=== PATIENT | male | born 1960 | race Caucasian/White ===

== ENCOUNTER 2016-06-27 07:08 | Day surgery (SDC) | payer MEDICARE, MEDICAID ==
[~2016-06-27] VITALS: Ht 170.2 cm; Wt 117.5 kg
[~2016-06-27 07:08] MED LIST: ASCO500C6 PO; ASPI325T32 PO; BISA10EN RC; FLUT16SP NS; HYDR-4003 PO; Lactated Ringer's 1,000 ML IV ONE; MULT-1018 PO; PHEN100C11 PO; Vancomycin Inj 1,750 MG in Dextrose 5% 500 ML IV ONE; baclofen pump
[2016-06-27] MEDS ORDERED: Propofol 10,000 mCg/mL 20 mL Inj ONE (07:09)
[2016-06-27] MEDS ORDERED: Lidocaine PF 1% 30 mL Inj ONE (07:09)
[2016-06-27] MEDS ORDERED: fentaNYL-PF 50 mCg/mL 2 mL Inj ONE (07:09)
[2016-06-27] MEDS ORDERED: Lactated Ringer's 1,000 ML IV ONE (07:44)
[2016-06-27 07:45] VITALS: BP 123/70; PULSE 50; RESP 20; O2SAT 93
[2016-06-27] MEDS ORDERED: Vancomycin 1,000 mg/200 mL D5W IV ONE (08:07)
[2016-06-27] MEDS ORDERED: Lactated Ringer's 500 ML IV PRN (08:31)
[2016-06-27] MEDS ORDERED: Lactated Ringer's 1,000 ML IV SCH (08:31)
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
[2016-06-27] MEDS ORDERED: fentaNYL-PF 50 mCg/mL 2 mL Inj IVPUSH PRN (08:35)
[2016-06-27] MEDS ORDERED: Ondansetron 2 mg/mL 2 mL Inj IVPUSH PRN (08:35)
[2016-06-27] MEDS ORDERED: Atropine 0.4 mg/mL Inj IVPUSH PRN (08:35)
[2016-06-27] MEDS ORDERED: MetoCLOpramide 5 mg/mL 2 mL Inj IVPUSH PRN (08:35)
[2016-06-27] MEDS ORDERED: Phenylephrine 10,000 mCg/mL Inj IVPUSH PRN (08:35)
[2016-06-27] MEDS ORDERED: HYDROmorphone 1 mg/mL Inj IVPUSH PRN (08:35)
[2016-06-27] MEDS ORDERED: EPHEDrine Sulfate 50 mg/mL Inj IVPUSH PRN (08:35)
[2016-06-27] MEDS ORDERED: hydrALAZINE 20 mg/mL Inj IVPUSH PRN (08:35)
[2016-06-27] MEDS ORDERED: Labetalol 5 mg/mL 4 mL Inj IV PRN (08:35)
[2016-06-27] MEDS ORDERED: Dexamethasone 4 mg/mL Inj IVPUSH PRN (08:35)
[2016-06-27 09:50] VITALS: BP 94/63; PULSE 52; RESP 20; O2SAT 96
--- NOTE | 2016-06-27 09:52 | PCM.ANEP1 ---
Post Anesthesia Phase 1 PACU Phase 1 Assessment Date of Service: Jun 27, 2016 Vital Signs T 36.0, HR 53, RR 12, O2 95% RA, BP 94/63 Vital Signs Date Time Temp Pulse Resp B/P Pulse Ox O2 Delivery O2 Flow Rate FiO2 06/27/16 07:45 35.9 50 20 123/70 93 Room Air Lungs: Clear to Auscultation, Diminished Demond Vasquez MD Jun 27, 2016 09:52
--- NOTE | 2016-06-27 10:21 | PCM.ANEP2 ---
Post Anesthesia Evaluation ASA/CMS Post Anesthesia Date of Service: Jun 27, 2016 VS in Patient's Normal Range?: Yes Resp Stable; Airway Patent?: Yes CV Function & Hydration Stable: Yes Mental Status Recovered?: Yes Pain control Satisfactory?: Yes N/V Control Satisfactory?: Yes Demond Vasquez MD Jun 27, 2016 10:21
[2016-06-27 10:30] VITALS: BP 115/62; PULSE 48; RESP 18; O2SAT 96
--- NOTE | 2016-06-27 21:32 | OP ---
[address] [address] OPERATIVE REPORT PATIENT: LOBITO BILLINGSLEY : 1960 MR#: [id number] ADMIT: 06/27/2016 JOB ID: [id number] DATE OF SURGERY: 06/27/2016 SURGEON: Alex Kern MD ANESTHESIA: Monitored anesthesia care. PREOPERATIVE DIAGNOSIS(ES): 1. Quadriplegia. 2. Bilateral stage 4 ischial decubitus ulcers. POSTOPERATIVE DIAGNOSIS(ES): 1. Quadriplegia. 2. Bilateral stage 4 ischial decubitus ulcers. PROCEDURES: Debridement of bilateral decubitus ulcers. ASSISTANTS: LYNNE Pickering. COMPLICATIONS: None. ESTIMATED BLOOD LOSS: 10 cc. SPECIMENS: None. FINDINGS: The right ulcer generally appears pretty healthy. There was one very small focus of necrotic tissue which was cleaned with curettage. The left ulcer had a lot of necrotic tissue which was debrided with a combination of sharp debridement and curettage. INDICATIONS/SIGNIFICANT HISTORY: The patient is a 56-year-old man with a history of quadriplegia whose had a right ischial wound for over a year. He recently developed a left ischial wound. He has been struggling with wound care. It has been foul-smelling. [facility] and elected to take him to the operating room for exam under anesthesia and debridement. OPERATIVE TECHNIQUE: The patient was taken to the operating placed and placed in supine position. He was then placed in lithotomy. The patient refused general anesthesia and therefore received monitored anesthesia care. Preoperative antibiotics were given. The perineum was prepped and draped in standard surgical fashion and a procedural pause performed. I began by examining the right wound. The wound bed almost completely appeared healthy with no necrotic tissue. There was one pinpoint focus of necrotic tissue which was scraped off using a curette. That wound was then packed after pulse irrigation. I then turned my attention to the left ischial decubitus ulcer. There was a large amount of necrotic tissue especially in the left lateral aspect. I incised around this with a scalpel and then used electrocautery to remove necrotic tissue down to healthy bleeding tissue. Before the procedure it measured approximately 1.5 in length x 2.7 in width with a depth of 4.5 cm. After the procedure, it measured 6 cm in length x 8 cm in width with a depth of 5 cm. I completely debrided the entire wound down to healthy bleeding tissue. Then, the pulse irrigation was just under 3 L of saline. Wound was then packed. It was then reinspected and hemostasis achieved. Both wounds were then packed with plain gauze. Case was then concluded.
== END 2016-06-27 23:59 | disposition home or self-care (01) ==
LOC: SAS 07:08
PROVIDERS: ATTEND General Practice
DX: L89.224 Pressure ulcer of left hip, stage 4 (principal); L89.214 Pressure ulcer of right hip, stage 4; G82.50 Quadriplegia, unspecified; S14.109S Unspecified injury at unspecified level of cervical spinal cord, sequela; Z86.14 Personal history of Methicillin resistant Staphylococcus aureus infection
CPT/HCPCS: 11042; J3370; J7060; J7120

== ENCOUNTER 2016-07-20 10:59 | Day surgery (SDC) | payer MEDICARE, MEDICAID ==
[~2016-07-20] VITALS: Ht 170.2 cm; Wt 117.5 kg
[2016-07-20] VITALS (9 sets, daily range): BP systolic 88–140; BP diastolic 42–71; PULSE 47–53; RESP 12–18; O2SAT 95–97
[~2016-07-20 10:59] MED LIST changes: -BISA10EN RC; +Clindamycin 900 mg/50 mL D5W IV ONE; -FLUT16SP NS; -HYDR-4003 PO; -Lactated Ringer's 1,000 ML IV ONE; +Lactated Ringer's 1,000 ML IV SCH; -Vancomycin Inj 1,750 MG in Dextrose 5% 500 ML IV ONE
[2016-07-20] MEDS ORDERED: fentaNYL-PF 50 mCg/mL 2 mL Inj ONE (11:00)
[2016-07-20] MEDS ORDERED: Propofol 10,000 mCg/mL 20 mL Inj ONE (11:00)
--- NOTE | 2016-07-20 11:40 | PCM.HPANE ---
Patient Data Surgeon Admitting Provider: Attending Provider:Rohith Woodward MD Primary Care Physician:Saul Kendrick MD Other Provider:Radha Stephensoningham Anesthesia Reason for Visit Bilateral Ischial Wounds Ht/WT & BMI Height (Feet): 5 Height (Inches): 7 Weight (Kilograms): 117.48 Body Mass Index 40.00 Allergies Coded Allergies: No Known Drug Allergies (Verified Allergy, Unknown, 08/08/15) ONLY ALLERGIC TO DETERGENT PERFUME; NO DRUG ALLERGIES PER PATEINT Uncoded Allergies: PERFUME IN DETERGENT (Adverse Reaction, Severe, RED RASH, 07/27/12) Past Anesthesia History Anesthesia History: Denies:: Abnormal Airway, Anesthesia Reactions, Difficult Intubation, Malignant Hyperthermia Diabetes History Hx Diabetes?: No MRSA MRSA: Yes (IN URINE IN THE PAST) Medications Blood Thinner: Aspirin Reported Medications Multivitamin (Multi Vitamin Daily)1 Each Tablet1 Each PO DAILY 30 Days Ref 0 06/22/16 Aspirin 325 Mg Gwkecx344 Mg PO DAILY #1 BOTTLE 06/22/16 Phenytoin Sodium Extended 100 Mg Bunsvew110 Mg PO HS 06/22/16 Phenytoin Sodium Extended 100 Mg Rjigluc652 Mg PO noon 06/22/16 Ascorbic Acid (Vitamin C)500 Mg Capsule.er500 Mg PO DAILY 06/22/16 [baclofen pump] No Conflict CheckUnknown Dose DAILY 06/22/16 History History of ENT Problems?: Yes HEENT History: Positive for:: Dysphagia (occasional) Denies:: Abnormal Airway Cataracts Difficult Intubation Sinus Problem Hx of Heart Problems?: Yes Cardiovascular History: Positive for:: Edema Denies:: Cardiac Surgery Chest Pain Congestive Heart Failure Heart Murmur Hypertension Irregular Heartbeat Pacemaker Thrombophlebitis Hx of Respiratory Problem?: Yes Respiratory History: Positive for:: Dyspnea Pneumonia (hx of recurrent) Denies:: Asthma COPD Chest Surgery Emphysema Hemoptysis Tuberculosis Use of C-PAP Machine (positive sleep study) Hx Neurologic Problems?: Yes Neurological History: Positive for:: Headaches Seizures (last seizure was over 3 years ago) Denies:: Alzheimer's Disease CVA Dementia Dizziness Parkinson's Disease Hx of GI Problems?: Yes Gastrointestinal History: Positive for:: Heartburn Denies:: Diverticulitis Gastroesphageal Reflux Gastrointestinal Bleeding Hepatitis Hiatal Hernia Rectal Bleeding Hx of Problems?: Yes Genitourinary History: Positive for:: Kidney Stones (hx of bladder stones) Urinary Tract Infection (recurrent) Male Hx: Positive for:: Testicular Surgery (AT DETACHED TESTICLE) Denies:: Scrotal Mass (scrotal edema) Skin History: Positive for:: History Skin Disorders? (recurrent ulcerations) Pressure Ulcers (left ischial ulcers current admission problem) Hx Musculoskeletal Problems?: Yes Musculoskeletal History: Positive for:: Back Injury (cervical fusion - quadriplegic) Musculoskeletal Trauma Denies:: Joint Replacement Hx of Psycho/Social Problems?: No Psycho Social History: Denies:: Anxiety Bipolar Disorder Hx Depression Suicide Attempt Hx Surgeries?: Yes (flap surgery for decubs, tonsils, baclofen pump in abd, CERV. FUSION) Hx Any Other Health Problems?: Yes Other History: Positive for:: Hospitalization Denies:: Cancer Endocrine Disease Thyroid Disease History Blood Transfusions: Denies:: Blood Transfuse Reaction Blood Transfusions Hx Diabetes: No Hx Alcohol Use: NoHx Substance Use: No Smoking Status: Never Smoker Have You Smoked inLast 12 mo: No Stop/Bang P-Blood Pressure: treated: No B- Body Mass Index > 35 kg/m2: Yes A- Age over 50: Yes N- Neck Large Circumference: No G- Gender Male: Yes Risk Assessment Category Category 1A: Patient has history of documented sleep apnea, and HAS NOT received any narcotic, sedative or anesthesia administration during this stay. Category 1B: Patient has history of documented sleep apnea, and HAS received any narcotic , sedative or anesthesia administration during this stay Category 2: Patient has SUSPECTED Obstructive Sleep Apnea, and HAS received any narcotic , sedative or anesthesia administration during this stay. Category 3: Patient has SUSPECTED Obstructive Sleep Apnea and HAS NOT received narcotic, sedative or anesthesia administration during this stay. Category 4: Outpatient in Procedural Areas with known sleep apnea or who screen positive for High Risk via the STOP/BANG questionnaire. Plan Impression Patient chart reviewed, patient interviewed and anesthestic plan with risks, benefits, and alternatives discussed, and informed consent obtained. NPO Status: 06/26@1730 Ervin Saxena DO Jul 20, 2016 11:40
[2016-07-20] MEDS ORDERED: Lactated Ringer's 1,000 ML IV ONE (13:04)
[2016-07-20] MEDS ORDERED: SODIUM HYPOCHLORITE 0.25% TOPICAL ONE (13:40)
--- NOTE | 2016-07-20 15:06 | PCM.ANEP1 ---
Post Anesthesia Phase 1 PACU Phase 1 Assessment Vital Signs Vital Signs Date Time Temp Pulse Resp B/P Pulse Ox O2 Delivery O2 Flow Rate FiO2 07/20/16 14:19 47 12 133/70 96 Room Air 07/20/16 14:15 48 12 108/57 95 Room Air 07/20/16 14:10 36.1 53 14 104/59 95 Room Air 07/20/16 14:05 47 17 106/57 97 Room Air 07/20/16 14:00 48 17 104/50 97 Room Air 07/20/16 13:55 49 16 90/44 97 Simple Mask 8 07/20/16 13:53 36.9 52 18 88/42 97 Simple Mask 8 07/20/16 11:35 36.6 50 18 140/71 97 Room Air Anesthetic Administered: MAC Level of Alertness: Awake, talking WATERMAN's with Equal Strength: Yes Pain: No Nausea or Vomiting: No Oxygen Delivery: Simple Mask Dermatome Level: Full Sensation (At baseline c/w ~upper thoracic quadraplegia) Ervin Saxena DO Jul 20, 2016 15:06
--- NOTE | 2016-07-20 15:16 | PCM.ANEP2 ---
Post Anesthesia Evaluation ASA/CMS Post Anesthesia Date of Service: Jul 20, 2016 VS in Patient's Normal Range?: Yes Resp Stable; Airway Patent?: Yes CV Function & Hydration Stable: Yes Mental Status Recovered?: Yes Pain control Satisfactory?: Yes N/V Control Satisfactory?: Yes Ervin Saxena DO Jul 20, 2016 15:16
--- NOTE | 2016-07-21 23:48 | OP ---
[address] [address] OPERATIVE REPORT PATIENT: LOBITO BILLINGSLEY : 1960 MR#: [id number] ADMIT: 07/20/2016 JOB ID: [id number] DATE OF SURGERY: 07/20/2016 PREOPERATIVE DIAGNOSIS(ES): Left ischial pressure ulcer, unstageable. POSTOPERATIVE DIAGNOSIS(ES): Left ischial pressure ulcer, stage 4. PROCEDURE: 1. Excision and sharp debridement of left ischial pressure ulcer. Predebridement measurement 11 cm x 9 cm. Post debridement measurement 11 cm x 11 cm. 2. Debridement includes skin, soft tissue and muscle. SURGEON: Rohith Woodward MD. MANAGER PULMONARY: None. ANESTHESIA: MAC. COMPLICATIONS: None apparent. ESTIMATED BLOOD LOSS: 10 cc. SPECIMEN: None. INDICATIONS FOR PROCEDURE: This is a 56-year-old patient with paraplegia. The patient has a long history of right-sided ischial pressure ulcer. Patient had wheelchair cushion malfunction. Patient subsequently developed a left ischial wound. This was debrided on June 27, 2016. I saw the patient on July 13, 2016, and it was noted that the patient had developed more necrotic tissue in this wound. At this point, a debridement of the necrotic tissue from the wound is indicated. PROCEDURE AND FINDINGS: The patient was identified in preoperative area. Surgical site was marked. The patient was then taken back to the operating room and placed supine on the operating table. Appropriate time-outs were taken. MAC was induced smoothly. The patient was then placed into a lithotomy position. The patient was then prepped and draped in the usual sterile manner. It was noted that patient has a pressure ulcer in the right ischium. It was unstageable, though there is some necrotic tissue at the base. There is also necrotic tissue at the periphery of the wound including the skin which extended from approximately the 1 o'clock position of the wound to the 11 o'clock position of the wound. I started at the 1 o'clock position and incised at the junction of the necrotic tissue with normal-appearing skin with electrocautery. This was deepened down toward the wound base. I beveled the incision away from the necrotic tissue until there was no more necrotic tissue at the edge of the wound. I then continued the dissection toward the medial aspect of the wound, excising the deep necrotic tissue. This was done, 1st from the approximately 1 o'clock position to the 4 o'clock position. It was noted that the cavity undermines the wound edge by 2 cm. I excised approximately 1 cm of the skin from this area as this skin is undermined and likely not to survive and also allow for better packing. I then turned my attention to the next section of the wound which was approximately to the 4 o'clock and 9 o'clock position. Again, a similar excision was carried out to remove the necrotic tissue. I then continued onto approximately the lung 11 o'clock position to excise all necrotic material from the periphery. Once this had been done, it was noted that patient continues to have some necrotic material at the medial aspect of the wound. In a layer by layer manner, I excised the necrotic material with electrocautery until I encountered the ischial periosteum. Once this has been done, the wound appeared to be clean. Wound base was bleeding in several spots. There was no obvious apparent necrotic tissue. The wound was then packed with Dakin-moistened Kerlix. The patient tolerated the procedure well. Needle count, sponge count, instrument counts were correct at the end of procedure. Again, preexcision, the wound measured approximately 9 cm x 11 cm and post excision the wound measured 11 cm x 9 cm. Before debridement, the wound had soft tissue at the base and afterwards the wound extends all the way down to the ischium making it a stage 4 pressure ulcer.
== END 2016-07-20 23:59 | disposition home or self-care (01) ==
LOC: SAS 10:59
PROVIDERS: ATTEND Plastic Surgery
DX: L89.224 Pressure ulcer of left hip, stage 4 (principal); G40.909 Epilepsy, unspecified, not intractable, without status epilepticus; G82.50 Quadriplegia, unspecified
CPT/HCPCS: 11043; J2250; J3010; J7120

== ENCOUNTER 2016-08-06 22:20 | Inpatient (IN) | payer MEDICARE, MEDICAID ==
[~2016-08-06] VITALS: Ht 170.2 cm; Wt 113.5 kg
[~2016-08-06 22:20] MED LIST changes: -Clindamycin 900 mg/50 mL D5W IV ONE; -Lactated Ringer's 1,000 ML IV SCH
--- NOTE | 2016-08-06 22:35 | ED.REPORT ---
HPI-Rash / Abscess Date of Service Aug 06, 2016 ED Provider: Lionel Recio MD A 56 year old male with stage IV bilateral ischial decubitus ulcers and a history of C7 quadriplegia and morbid obesity presents to the ED via EMS complaining of a fever that began earlier this afternoon. Patient also reports worsening pain in his ulcers. Patient recently had his left ulcer excised and debrided (measured 11cm x 9cm). He denies any recent antibiotic use. Patient has had several visits to Wound Care in the past month for his decubitus ulceration. Nursing Notes Stated Complaint: BUTTOCK SHORES Nursing Notes Reviewed: Yes Allergies: Coded Allergies: No Known Drug Allergies (Verified Allergy, Unknown, 08/08/15) ONLY ALLERGIC TO DETERGENT PERFUME; NO DRUG ALLERGIES PER PATEINT Uncoded Allergies: PERFUME IN DETERGENT (Adverse Reaction, Severe, RED RASH, 07/27/12) Scheduled ([baclofen pump]) Unknown Dose DAILY Ascorbic Acid (Vitamin C) 500 Mg Capsule.er 500 MG PO DAILY Aspirin (Aspirin) 325 Mg Tablet 325 MG PO DAILY Multivitamin (Multi Vitamin Daily) 1 Each Tablet 1 EACH PO DAILY Phenytoin Sodium Extended (Phenytoin Sodium Extended) 100 Mg Capsule 200 MG PO noon Phenytoin Sodium Extended (Phenytoin Sodium Extended) 100 Mg Capsule 300 MG PO HS General Time Seen by MD: 22:31 Chief Complaint Other (Fever) Hx Obtained From: Patient Arrived By: Ambulance Onset Occurred: 9 - 12 hours ago Symptom Duration: Since onset Location: : Buttock Quality: Painful Severity: Current: Mild Severity: Maximum: Mild Associated with: Reports Fever Pertinent Negative: Pt denies other symptoms Recent Healthcare: No recent hospitalization, Recent doctor visit Past Medical History Past Medical History Incomplete C7 quadriplegia Mild sinusitis Seizure disorder Morbid obesity Recurrent bladder infections stage IV bilateral ischial decubitus ulcers Past Surgical History Multiple buttock decubitus ulcer debridement Baclofen pump Debridement of right ischial pressure sore with right gluteal myocutaneous flap closure. Smoking History Never Smoker Social History Alcohol Use: Denies alcohol use Drug Use: Denies drug use Other Social History: Good social support Ambulatory Status Wheelchair Review of Systems ischial decubitus ulcer pain Constitutional: Reports: Chills, Fever Respiratory: Denies: Shortness of breath Cardiovascular: Denies: Chest pain GI: Denies: Abdominal pain, Nausea, Vomiting Complete sys rev & neg: except as marked. Neurologic: Denies: Change LOC Physical Exam Initial Vital Signs Vital Signs (First) Date Time Temp Pulse Resp B/P Pulse Ox O2 Delivery O2 Flow Rate FiO2 08/06/16 22:59 37.7 92 18 134/55 100 Room Air Initial VS: Reviewed, Vital signs abnormal Neurologic: Alert, Oriented, Nonfocal Psychiatric: Mood/affect normal, Behavior normal, Normal thought content General/Constitutional: Awake, Alert Appearance / Presentation: Positive: Obese Skin: Atraumatic Rash / Lesion Notes: SKIN/LEISON: Left buttock - Large cavity with necrotic edge (10cm x15cm) Right buttock- Small [id number] open area Head / Eyes: Atraumatic, Normocephalic, PERRL Respiratory / Chest: Atraumatic, Breath sounds NL, Breath sounds = bilat Cardiovascular: Heart rate NL, Regular rhythm, Heart sounds NL Upper Extremity / MS: Atraumatic, Vascular intact UPPER EXTREMITIES: Paraplegic Good use of bilateral upper arms Lower Extremity / Pelvis / MS: Atraumatic, Vascular intact LOWER EXTREMITIES: Paraplegic Support stocking on the left (no support stocking on right) Interpretation & Diagnostics Lab Results Interpretation Result Diagram: 08/06/16 2245 08/07/16 0129 Test 08/06/16 22:45 08/07/16 00:30 White Blood Count 18.2th/mm3 (3.8-10.1) Red Blood Count 4.39mil/mm3 (4.40-5.80) Hemoglobin 11.6g/dL (13.8-17.2) Hematocrit 35.9% (41.0-50.0) Mean Corpuscular Volume 81.8fL (81-100) Mean Corpuscular Hemoglobin 26.4pg (27.0-35.0) Mean Corpuscular Hemoglobin Concent 32.3% (32.0-37.0) Red Cell Distribution Width 15.2% (12.3-15.4) Platelet Count 328bil/L (150-400) Neutrophils (%) (Auto) 89.0% (40-74) Lymphocytes (%) (Auto) 4.2% (14-46) Monocytes (%) (Auto) 5.9% (4-12) Eosinophils (%) (Auto) 0.3% (0-5) Basophils (%) (Auto) 0.2% (0-3) Lactic Acid Level 1.3mmol/L (0.4-2.0) Magnesium Level 1.9mg/dL (1.6-2.6) Troponin T 0.010ug/L (0.0-0.011) Urine Color Dark yellow (YELLOW) Urine Appearance Cloudy (CLEAR,HAZY) Urine pH 6.0 (5.0-8.0) Urine Specific [place] 1.025 (1.003-1.035) Urine Protein 30mg/dL (NEG,TRACE) Urine Glucose (UA) Negativemg/dL (NEGATIVE) Urine Ketones Tracemg/dL (NEGATIVE) Urine Occult Blood Moderate (NEGATIVE) Urine Nitrite Positive (NEGATIVE) Urine Bilirubin Small (NEGATIVE) Urine Ictotest Positive (Negative) Urine Urobilinogen 1.0mg/dL (NORMAL) Urine Leukocyte Esterase Moderate (NEGATIVE) Urine RBC 11-50/hpf (0-2) Urine WBC Packed/hpf (0-5) Urine Epithelial Cells Few/hpf (NONE-MOD) Urine Crystals None seen (NONE SEEN) Urine Bacteria Many/hpf (NONE-FEW) Urine Hyaline Casts None/lpf (NONE) Urine Granular Casts None seen (NONE SEEN) Urine Waxy Casts None seen (NONE SEEN) Urine Red Blood Cell Casts None seen (NONE SEEN) Urine White Blood Cell Casts None seen (NONE SEEN) Urine Mucus None seen (None Seen) Urine Trichomonas None seen (NONE SEEN) Urine Yeast None (NONE SEEN) Urine Culture Reflexed Indicated Lab Results Interpretation: Elevated white blood count. Normal lactate ECG Interpretation ECG Interpretation: IMPRESSION: Sinus Rhythm Rate 60 Probable left atrial enlargement Time: 22:59 Interpreted by: ED physician Normal ECG Interpretation: No change from prior ECGs (06/02/14) Re-Eval/Medical Decision Med Decision/Clinical Course 56-year-old male who is an incomplete quad. He has bilateral ischial decubiti. There is considerable more breakdown and devitalized tissue in the left side. He has developed a fever and a white count. He will be treated and admitted for re-debridement. Re-Evaluation/Progress : Time of Eval: 00:35 Patient Status: Condition improved Re-Evaluation/Progress Note: Patient is rechecked. Ulcers are examined. He is informed of the plan to admit and consult with the surgeon. Consultation #1: Referral / Consult Name: Virginia Gonzalez MD Consulted With: Hospitalist Call Returned at: 00:38 Tank Truck Mechanic: Will see patient, Agrees with eval, Agrees with plan Consultation #2: Referral / Consult Name: Rohith Woodward MD Consulted With: Surgeon Call Returned at: 00:42 Tank Truck Mechanic: Will see patient, Agrees with eval, Agrees with plan Counseled Regarding: Diagnosis, Lab results, Need for admission Discharge & Departure Impression: Primary Impression: Stage IV pressure ulcer Disposition: ADMITTED TO HOSPITAL Discharge Condition All VS Reviewed: Yes Condition: Stable Referrals: Saul Kendrick MD (PCP) Scribe Attestation Portions of this note were transcribed by Ashley Anguiano. I, Dr. Recio personally performed the history, physical exam and medical decision-making; I reviewed and confirmed the accuracy of the information in the transcribed note. Signed by: Jackelyn Holloway, 08/07/16 0100. copies to: Saul Kendrick MD, Howard L MD Aug 06, 2016 22:35 ASHLEY ANGUIANO Aug 06, 2016 22:51
[2016-08-06] MEDS ORDERED: 0.9% Sodium Chloride 1,000 ML IV ONE (22:37)
[2016-08-06 22:59] VITALS: BP 134/55; PULSE 92; RESP 18; O2SAT 100
[2016-08-06 23:05] LABS: BASOPHILS % (AUTO) 0.2 % (0-3); Platelet Count 328 bil/L (150-400)
[2016-08-06 23:08] LABS: EOSINOPHILS % (AUTO) 0.3 % (0-5); MONOCYTES % (AUTO) 5.9 % (4-12); Mean Corpuscular Hemoglobin 26.4 pg (27.0-35.0); Mean Corpuscular Volume 81.8 fL (81-100)
[2016-08-06 23:28] LABS: TROPONIN T 0.01 ug/L (0.0-0.011)
[2016-08-06 23:39] LABS: Magnesium 1.9 mg/dL (1.6-2.6)
[2016-08-07] VITALS (8 sets, daily range): BP systolic 124–150; BP diastolic 63–78; PULSE 52–68; RESP 20–22; O2SAT 95–99
[2016-08-07] MEDS ORDERED: Vancomycin Inj 2,250 MG in 0.9% Sodium Chloride 500 ML IV ONE (00:40)
[2016-08-07] MEDS ORDERED: Ondansetron 2 mg/mL 2 mL Inj IVPUSH PRN (00:55)
[2016-08-07] MEDS ORDERED: Polyethylene Glycol (PEG) 17 Gm Powder PO PRN (00:55)
[2016-08-07] MEDS ORDERED: Alum-Mag Hydrox-Simeth 30 mL Suspension PO PRN (00:55)
[2016-08-07 00:58] LABS: APPEARANCE,URINE CLOUDY (CLEAR,HAZY); COLOR,URINE DARK YELLOW (YELLOW); OCCULT BLOOD,URINE MODERATE (NEGATIVE)
[2016-08-07 00:59] LABS: ICTOTEST,URINE POSITIVE (Negative)
[2016-08-07] MEDS: Vancomycin Dose per Pharmacist XX SCH ×2 (01:34→08:30)
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
[2016-08-07] MEDS: Piperacillin-Tazo 3.375 Gm Inj 3.375 GM in Dextrose 5% Minibag Plus 50 ML IV SCH ×3 (03:26→17:37)
--- NOTE | 2016-08-07 03:39 | PCM.CONPHA ---
Subjective Fevers chills Reason for Pharmacy Consult: Vancomycin Dosing Assessment/Plan Assessment/Plan Pharmacy Kinetic Dosing Vancomycin Indication: Bilateral ischial ulceration Vanc goal trough: 15-20 mcg Pt wt: 113.5 kg Other ABX: Zosyn SCr: 0.34 WBC: 7.6 Cultures: Blood pending Assessment/Plan: - Loading dose of vancomycin 2,250 mg given in ED. -Will schedule vancomycin to 1,750 mg Q12H (roughly 15.4mg/kg per dose) -Will schedule trough level to be drawn on 08/09/16 @0100. Pharmacy appreciates consult and will continue to monitor. Thanks, Miguel Kessler, PharmD Miguel Kessler Aug 07, 2016 03:39
[2016-08-07] MEDS: 0.9% Sodium Chloride 1,000 ML IV SCH ×3 (04:43→20:51)
--- NOTE | 2016-08-07 06:44 | NUR ---
Admit/Ischial ulcer Admitted pt from ED to [facility]. IV vanco and zosyn running. IVF NS running on 100ml/hr. Pt denies chest pain, sob, n/v or abd discomfort. Noted pt's ulcer on his Left sacrum extending around the panus around 4-5 inches of length and width. and 4-5 inches deep, also on the Right sacrum 2-3 length and diameter, Pressure ulcer protocol initiated, Clinitron bed ordered but is currently unavailable per CS. Q2 turns provided. Wound culture obtained and sent to lab. Cleaned using gauzed with saline, and applied moistened gauze and covered with hypafix dressing. Will continue to monitor. Addendum: 08/07/16 at 0656 by RAJEEV SEVILLA RN correction:anus/anal area
--- NOTE | 2016-08-07 07:22 | DRSVH ---
PROCEDURE: CT PELVIS WITH CONTRAST ([id number]) INDICATIONS: bl peritoneal ulcers TECHNIQUE: After the administration of intravenous contrast, 5 mm thick sections acquired from the iliac crests to the symphysis. 5 mm coronal and sagittal reformats were acquired. For radiation dose reduction, the following was used: automated exposure control, adjustment of mA and/or kV according to patient size. COMPARISON: [facility], CT, CT ABD PELVIS W CON, 08/08/2015, 15:17. FINDINGS: Image quality: Excellent. Peritoneum and bowel: Bowel loops demonstrate normal wall thickness and caliber. No free fluid or a ir. Genitourinary: The bladder is decompressed and a suprapubic Rosario catheter is present. Nodes and vessels: No iliac, pelvic, or inguinal adenopathy by size criteria. Iliac vessels demonst rate normal size and enhancement. Bones: The right inferior obturator ring has a sclerotic appearance. No definite cortical thinning. Severe degenerative changes are present at the bilateral hip joints. A lucency is present within the right femoral neck suggesting a cystic lesion. No acute fracture or dislocation. Miscellaneous: There large bilateral soft tissue defects inferior to the bilateral tuberosities. Ther e is marked soft tissue thickening surrounding these defects. No discrete fluid collections. Debris o r packing material is present within the right soft tissue defect. The left soft tissue defect extend s posteriorly through the gluteus subcutaneous tissue adjacent to the gluteal crease. There is also a subtle soft tissue tract leading from the large left defect to the greater trochanter of the left fe mur. IMPRESSION: 1. Large bilateral decubitus ulcerations inferior to the bilateral ischial tuberosities. Additionally , gas tracks from the left ulceration posteriorly along the gluteal crease and towards the left femor al greater trochanter. It is unclear whether this represents necrotizing fasciitis, or extension of t he decubitus ulcer. No abscess or fluid collection amenable to drainage. 2. Sclerosis of the right inferior obturator ring suspicious for chronic osteomyelitis. If further ch aracterization is warranted, contrast-enhanced MRI of the pelvis is recommended. These findings are concordant with the overnight interpretation. Dictated by: Paola Wang M.D. on 08/07/2016 at 7:10 Approved by: Paola Wang M.D. on 08/07/2016 at 7:20
--- NOTE | 2016-08-07 08:05 | DRSVH ---
PROCEDURE: X-RAY CHEST ONE VIEW, PORTABLE ([id number]) INDICATIONS: fever TECHNIQUE: One view of the chest was acquired. COMPARISON: [facility], , CHEST 1VW (PORTABLE), 06/02/2014, 16:22. FINDINGS: This is a markedly limited study due to patient body habitus. Surgical changes and devices: None. Lungs and pleura: No pleural effusions or pneumothorax. Lungs are clear. Mediastinum: Mediastinal contours appear normal. Heart size is normal. Bones and chest wall: No suspicious bony lesions. Overlying soft tissues appear unremarkable. IMPRESSION: Limited study. No acute cardiopulmonary findings. Dictated by: Paola Wang M.D. on 08/07/2016 at 8:03 Approved by: Paola Wang M.D. on 08/07/2016 at 8:04
[2016-08-07] MEDS: Famotidine Inj 20 MG in IV Premix 1 EACH IV SCH ×2 (08:18→22:41)
[2016-08-07] MEDS ORDERED: Vancomycin Dose per Pharmacist XX SCH (08:30)
--- NOTE | 2016-08-07 10:58 | NUR ---
Social Work: Initial Assessment Data & Assessment: See Initial Assessment. EMR Reviewed. Patient is a 56 year old male that admitted on 08/07/16 due to Bilateral Ischial Ulceration per H& P. Gas Pumping Station Helper met with patient at bedside to complete initial assessment, Social Work role explained and discharge planning discussed. Advanced directives were discussed and patient does not have Advance Directive/DPOA and declined the information. Patient confirmed that his PCP is Dr. Saul Kendrick. Patient's insurance is Medicare and [employer] [employer] as secondary. Patient does not have any LTC or VA benefits. Patient does not have a re-admit score. Patient reports that he is total care and uses an electric WC at baseline. Patient reports that he was previously on service with [facility] and does not have a preference in which HH he is referred to upon discharge. SW referred to [facility] and it is [facility] week. SW will refer patient to [facility] and give them access. Patient lives alone in a single level home with ramp access. 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 Patient's Peter worker is Dary Downing. SW will fax patient's clinical to [facility]. SW will continue to follow. Plan: Pt to likely discharge home with [facility] RN for wound care. SW will continue to follow. Christiano Engle LMSW, YAIMA Addendum: 08/07/16 at 1117 by CHRISTIANO ENGLE Amended: Links added.
[2016-08-07 11:35] LABS: BASOPHILS % (AUTO) 0.2 % (0-3); EOSINOPHILS % (AUTO) 1.1 % (0-5); MONOCYTES % (AUTO) 6.7 % (4-12); Mean Corpuscular Hemoglobin 26.1 pg (27.0-35.0); Mean Corpuscular Volume 82.2 fL (81-100); NEUTROPHILS % (AUTO) 85.2 % (40-74); Platelet Count 286 bil/L (150-400)
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
[2016-08-07 13:08] LABS: INR 1.06 ratio
[2016-08-07] MEDS: Vancomycin Inj 1,750 MG in 0.9% Sodium Chloride 500 ML IV SCH (14:09)
--- NOTE | 2016-08-07 14:17 | NUR ---
Social work: Brief Note Gave [facility] access to the patient's chart and called Panchito with [facility] to notify him of the referral. SW will continue to follow patient for discharge planning needs. Dana Engle, OSMAN, ACM
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
--- NOTE | 2016-08-07 17:58 | NUR ---
Wound dressing change Pt dressing changed by Dr Marrouqin with help of this RN. Left ischial ulcer dressing was saturated with purulent draining and foul odor. Dr suctioned wound bed and packed with wet kerlix. Right ischial ulcer had mild purulent drainage, was pink and appeared to have good granulation, this to was packed with wet Kerlix and left open. Wound care will f/u tomorrow.
[2016-08-08] VITALS (8 sets, daily range): BP systolic 154–191; BP diastolic 72–86; PULSE 50–59; RESP 20–22; O2SAT 93–99
[2016-08-08] MEDS: Vancomycin Inj 1,750 MG in 0.9% Sodium Chloride 500 ML IV SCH ×2 (01:05→15:06)
[2016-08-08] MEDS: Piperacillin-Tazo 3.375 Gm Inj 3.375 GM in Dextrose 5% Minibag Plus 50 ML IV SCH ×3 (02:37→18:22)
--- NOTE | 2016-08-08 05:17 | NUR ---
Wound dressing Pt's wound dressing changed, cleaned with saline and applied wet to moist kerlix pad to the ulcers. Clinitron bed running as programmed. IV ABx administered as scheduled, VSS and pt has been afebrile overnight. Hourly rounding done. Will continue to monitor.
[2016-08-08] MEDS: 0.9% Sodium Chloride 1,000 ML IV SCH ×2 (06:51→18:25)
[2016-08-08 07:41] LABS: BASOPHILS % (AUTO) 0.3 % (0-3); EOSINOPHILS % (AUTO) 3.2 % (0-5); MONOCYTES % (AUTO) 6.8 % (4-12); Mean Corpuscular Hemoglobin 26.5 pg (27.0-35.0); Mean Corpuscular Volume 82.5 fL (81-100); NEUTROPHILS % (AUTO) 82.8 % (40-74); Platelet Count 268 bil/L (150-400)
[2016-08-08] MEDS: Famotidine Inj 20 MG in IV Premix 1 EACH IV SCH ×2 (08:02→21:35)
[2016-08-08 08:39] LABS: ERYTHROCYTE SEDIMENTATION RATE 29 mm/hr (0-30)
--- NOTE | 2016-08-08 13:18 | PCM.PNMED ---
Subjective Date of Service Aug 08, 2016 Subjective Had an uneventful night. He was evaluated by gen surgery and they did not feel it was a NSTI. This morning he reports he is doing ok. Denies any CP, SOB, or fevers. He would like a stronger bowel regimen for his constipation. Exam Vital Signs Vital Sign - Last Date Time Temp Pulse Resp B/P Pulse Ox O2 Delivery O2 Flow Rate FiO2 08/08/16 05:04 36.5 52 20 154/72 99 Room Air Intake and Output 08/07/16 08/07/16 08/08/16 Cumulative From/Thru 15:00 23:00 07:00 08/07/16 00:23 - 08/08/16 06:02 Intake Total 1399 ml 881 ml 3793 ml Output Total 1300 ml 1950 ml Balance 99 ml 881 ml 1843 ml Intake Oral 600 ml 600 ml IV Total 799 ml 881 ml 3193 ml Output Urine Total 1300 ml 1950 ml # Bowel Movements 0 0 Exam Constitutional: Middle-aged male who is morbidly obese and in no acute distress Head: Normocephalic atraumatic Chest: Clear to auscultation CV: Regular rate and rhythm Abdomen: Soft nontender bowel sounds present Extremities: Mildly atrophic and smooth skinned BLE : Suprapubic catheter in place, c/d/i Skin: Warm and dry with no rashes but there is a large tunneling ulcer of the left buttock and a moderate tunneling ulcer of the right buttock. Wounds are packed with Kerlix. Psych: Mood and affect are appropriate Neuro: Alert and oriented 3, Only flexion of right arm and full ROM of left arm. IVs and Medications Medications Reviewed: Medications were reviewed in detail Lab and Diagnostics Result Diagram: 08/08/16 0730 08/07/16 1219 X-Rays, CTs and MRIs CT PELVIS w con IMPRESSION: 1. Large bilateral decubitus ulcerations inferior to the bilateral ischial tuberosities. Additionally, gas tracks from the left ulceration posteriorly along the gluteal crease and towards the left femoral greater trochanter. It is unclear whether this represents necrotizing fasciitis, or extension of the decubitus ulcer. No abscess or fluid collection amenable to drainage. 2. Sclerosis of the right inferior obturator ring suspicious for chronic osteomyelitis. If further characterization is warranted, contrast-enhanced MRI of the pelvis is recommended. These findings are concordant with the overnight interpretation. Assessment & Plan # Acute sepsis, with penetrating ischial ulcers bilaterally, present on admission - Discussed criteria for sepsis with elevated white count of 18.2, febrile, tachycardic to 92, and Soft tissue, bacteremia, and UTI as other possible sources. - Placed on IV vancomycin per pharmacy, and IV Zosyn - CT pelvis w con was suspicious of necrotizing fasciitis and Osteomyelitis. General surgery , Dr. Marroquin, reviewed case and recommends MRI to further assess Osteomyelitis, but NSTI is not a concern at the moment. - Will obtain MRI Pelvis for further eval. Augment IV antibiotics if indeed for Osteomyelitis. - Infectious Disease consultation requested. - WBC, CRP, and ESR trending down today. #Bacteremia, acute -Patient's blood culture is growing out GPC x1 set so far. -Will manage per ID recommendations. #UTI, POA UA is positive for Nitrites, packed wbc, and mod Leukocytes with 11-50 RBCs. Will await cultures, but continue with IV Zosyn for now # Hyponatremia, acute, present on admission - Proceed with IV fluid hydration - Continuing to improve with IV NS hydration. Will plan to d/c fluids with adequate oral intake. # C5-C6 quadriplegia, chronic, present on admission - Continue supportive care - Continue Home med : Phenytoin - Will require Clinitron bed with decubitus ulcers - Patient has chronic constipation and would like an aggressive bowel regimen. #Ischial Decubitus Ulcers, POA Dressing per inpatient wound care. General surgery will also follow along. #BMI 39.2 # CODE STATUS - Full code Dispo: Likely 2-3 days for IV antibiotics and stabilization. Pain Evaluation: Adequate Pain Control VTE Prophylaxis: SCDs (we will hold on subcutaneous anticoagulants given possibility of surgical debridement in the a.m.) Resuscitation Status: CPR: Attempt Resuscitation Attending Statement The patient was seen and examined together with Resident/House-staff on 08/08/16 and I agree with the history, exam and plan as outlined in the note above. Jonatan Billingsley DO Aug 08, 2016 07:48 Otto Oseguera Aug 09, 2016 17:58
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
--- NOTE | 2016-08-08 14:49 | NUR ---
Wound Care Wound evaluation orders received, patient seen at bedside. 56 yo quadriplegic with stage 4 pressure injuries at both buttock/ischium right and left (POA). Left ulceration is 13 cm L x 9 cm W x 6.5 cm in depth, there is black necrotic tissue at 6 o'clock and 12 o'clock and at the base of the wound bone (ischial tuberosity) is palpable, there is foul tannish colored pus pooling in the base of the wound which is wall suctioned out today (25 cc's) and there is hadley necrotic subcutaneous tissue at the base of the wound. Digital examination of the wound reveals that one can get a finger up behind the ischial bone but at this time left ulcer does not communicate with the right. Right ulceration is 5 cm L x 3.5 cm W x 6 cm D, Wound bed is pale pink and granular, bone is palpable in the base of the ulcer. Ulcer is draining serous fluid on a moderate basis. Digital examination of the wound reveals that one can get a finger up behind the ischial bone but at this time right ulcer does not communicate with the left. Both wounds are packed with dry gauze and this is being changed daily, patient is on a clinitron bed. Well this patient is clinically with osteomylitis since bone is palpable in both ulcers, left ulcer is heavy with necrotic tissue which will need debridement surgically at some point however this patients wounds are extensive and healing may not be a reasonable goal at this time. Patient has been managed as an outpatient with care givers but he is completely dependent on caregivers for all ADL's and mobility. Patient is not appropriate for discharge to his own home at this point but rather SNF placement is recommended.
[2016-08-08] MEDS: Vancomycin Dose per Pharmacist XX SCH (15:08)
--- NOTE | 2016-08-08 15:58 | NUR ---
Meds Pt refused magnesium citrate, doesn't know why it was ordered, stated "I do not want to shit all over the place." Will continue with bowel meds.
[2016-08-08] MEDS: Polyethylene Glycol (PEG) 17 Gm Powder PO SCH (20:30)
[2016-08-08] MEDS: Phenytoin 100 mg ER Capsule PO SCH (21:35)
--- NOTE | 2016-08-08 22:21 | CONS ---
[address] [address] CONSULTATION REPORT PATIENT: LOBITO BILLINGSLEY : 1960 MR#: [id number] ADMIT: 08/07/2016 JOB ID: [id number] DATE OF SERVICE: 08/08/[address] Newell. REASON FOR CONSULTATION: Deep decubitus ulcer with sepsis. HISTORY OF PRESENT ILLNESS: The patient is an unfortunate 56-year-old gentleman well known to me. He has been a quadriplegic for about a quarter century now and has suffered numerous soft tissue and urinary tract infections which have led to multiple hospitalizations over many years. The patient was living at home with his part-time caregiver and in his usual state of health until four or five days ago when he developed fevers, chills and just feeling diffusely bad. He tried to weather the storm at home for two or three days but continued to have fevers, chills and malaise without real focal symptoms, but of course, remember the patient is a quadriplegic with no sensation through most of his body. In any event, he got worse and eventually presented to the emergency department, was evaluated and was admitted back in the time buyer hours of August 07, yesterday. The patient was cultured and started on appropriate antibiotics, and is already starting to feel a bit better, and that his fevers, chills and malaise seem to be ameliorated. He does not report significant cough or shortness of breath as part of this illness. He is aware that he has decubitus ulcers and he understands that they are worsening, but he actually does not have any sensation or awareness of this process. He has had no nausea, vomiting or diarrhea, and he has been able to eat throughout this. PAST MEDICAL HISTORY: 1. C7 quadriplegia x25 years. 2. Recurrent UTIs. 3. Recurrent and ongoing decubitus ulcers. 4. History of coccygeal osteomyelitis. 5. History recurrent pneumonia. 6. History of underlying seizure disorder. SOCIAL HISTORY: The patient lives with a caregiver and a dog. He does not smoke and rarely drinks alcohol. FAMILY HISTORY: Is notable for coronary artery disease, but there is no family history in first-degree relatives of tuberculosis. REVIEW OF SYSTEMS: Was done. The patient has no significant headache or visual change at this point. No sores in the mouth, sore throat or trouble swallowing. No cough or shortness of breath beyond what is normal for his quadriplegic state. He does not have significant sensation below C7 so there is no abdominal pain. No back pain. No decubitus pain or any kind of pain. No nausea, vomiting, diarrhea that he has noted. He obviously has no neurologic function below C7. The remainder of the review of systems is negative. PHYSICAL EXAMINATION: Reveals an afebrile gentleman. He has been afebrile since admission, though he was 37.7 when he first came in so borderline. Pulse is currently 54, respiratory rate 20, blood pressure 159/73, saturating well on room air. He is awake, alert, pleasant. His mood seems somewhat depressed, but otherwise relatively normal. Head without trauma. Eyes without scleral icterus or conjunctivitis. Oral cavity: No thrush, hairy leukoplakia. His neck has been fused. He is lying supine on an air type mattress, which makes the exam fairly difficult. Lungs: Relatively clear anteriorly. Cardiac tones without murmur. Abdomen is soft and without focal tenderness. He has a suprapubic catheter. His extremities are of course wasted and with no muscle tone. There is a waxy appearance to his skin, but it is not inflamed or erythematous. He has an IV in the right antecubital fossa. No evidence for joint inflammation is found and as I mentioned no skin rash noted. We were not able to roll the patient over in his air bed, though I did speak in detail to Blake of Wound Care, who saw the patient earlier today. Blake notes that on the left ischial area there is a 13 x 9 x 6.5 cm deep wound with black necrotic tissue at the top and bottom of the wound. The ischial tuberosity is palpable and there is a foul, tannish pus pooling in the wound, which was suctioned and sent for culture. The digital exam of the wound shows that one can palpate the ischial bone through the wound. The right ulceration is smaller, 5 x 3.5 x 6 cm deep, that is granulating fairly well and draining some serous fluid. Blake of Wound Management concluded his report by saying clinically there is likely to be osteo in both areas. LABORATORY STUDIES: Include white count 18,000 on admission, now down to 11. Diff showed 90% segs, now 82. Sed rate is 48. Creatinine less than 0.3. LFTs are normal. Albumin 2.4. Procalcitonin 0.11. Urinalysis with packed white blood cells, which is often the case in this patient looking back at prior admissions. Micro studies include one of four blood cultures growing staph to be identified. Urine growing some organism, which is being re-incubated, in the wound which is growing gram-negative ekaterina but multiple different organisms were seen on the Gram stain. A pelvic CT has already been done, which shows a large bilateral decubitus over the ischial tuberosity. Gas tracts from left ulceration along the gluteal crease and toward the femoral trochanter. There is also sclerosis of the right inferior obturator ring suspicious for osteo. MRI cannot be performed as the patient cannot get his arms up over his head. Chest x-ray is negative. IMPRESSION: This patient likely has osteomyelitis of one or both ischial tuberosities based on the deep ulcerations and exposed bone that were found. Given the large and chronic nature of his wounds, it is almost certain at some point he will go on to develop chronic osteomyelitis. Optimal management at this point probably involves a prolonged course of antibiotics, as well as potentially attempts to debride the left-sided more extensive wounds, and perhaps even a flap going forward to allow some attempt at closure of these defects, lest the patient just have continual infections. The patient tells me that his home air mattress is worn out and is damaged. It is perhaps reasonable to see if he could receive a better quality Clinitron type mattress at home to reduce the risk of these events or whether he should simply end up moving into a halfway facility where he could receive more frequent turning than he now obtains from his caregiver. RECOMMENDATIONS: 1. The patient is now on vanc and Zosyn. Will continue these antibiotics pending cultures. 2. Will obtain a MRSA swab of the nose. 3. Will continue to follow his labs, including especially the CRP going forward. 4. I will plan to discuss this case again with Surgery, as well as with Wound Management. 5. It may be that the patient will need a PICC line for six weeks of antibiotics. We can make that decision as we find out more about the organisms and go forward. JADYN
[2016-08-09] VITALS (8 sets, daily range): BP systolic 119–164; BP diastolic 65–90; PULSE 55–60; RESP 17–20; O2SAT 96–99
[2016-08-09] MEDS ORDERED: Vancomycin Serum Trough XX ONE (01:00)
[2016-08-09] MEDS: Vancomycin Inj 1,750 MG in 0.9% Sodium Chloride 500 ML IV SCH (01:31)
--- NOTE | 2016-08-09 02:11 | PCM.PHAPRO ---
Progress Date of Service: Aug 09, 2016 Vancomycin dosing by pharmacy for 56 y/o man O: * The patient is on vancomycin 1750 mg every 12 hours * Trough level of 13.6 mcg/mL prior to the fifth dose * SCr < 0.3 mg/dL on 08/08 * Urine output 3150 mL on 08/08 * Cultures pending A: * The trough level is not at target, but vancomycin concentrations may not be at steady-state yet * SCr is staying low, UOP looks good P: * Continue the current vancomycin dose * Drawing another trough level after 3 more doses to see if it is at target * Target trough range of 15 - 20 mcg/mL Thank you. Pharmacy will continue to follow this patient. Radha Spicer, PharmD Radha Spicer Aug 09, 2016 02:11
[2016-08-09] MEDS: 0.9% Sodium Chloride 1,000 ML IV SCH ×3 (02:51→23:22)
[2016-08-09] MEDS: Piperacillin-Tazo 3.375 Gm Inj 3.375 GM in Dextrose 5% Minibag Plus 50 ML IV SCH ×3 (03:08→17:57)
--- NOTE | 2016-08-09 05:27 | NUR ---
NPO after mn/Stomach pain pt has been npo since midnight in preparation for surgery. Pt denies chest pain, sob, but has been having abdominal pain. MD was notified and aware. Ordered to give Morphine 2mg administered. Pt states that the stomach pain has been relief. Will continue to monitor.
[2016-08-09 06:07] LABS: BASOPHILS % (AUTO) 0.4 % (0-3); EOSINOPHILS % (AUTO) 3.4 % (0-5); MONOCYTES % (AUTO) 7.6 % (4-12); Mean Corpuscular Hemoglobin 26.3 pg (27.0-35.0); Mean Corpuscular Volume 83.7 fL (81-100); Platelet Count 318 bil/L (150-400)
[2016-08-09] MEDS ORDERED: Lactated Ringer's 1,000 ML IV ONE (07:34)
--- NOTE | 2016-08-09 07:56 | PCM.HPANE ---
Patient Data Surgeon Admitting Provider:Virginia Gonzalez MD Attending Provider:Virginia Gonzalez MD Primary Care Physician:Saul Kendrick MD Other Provider: Reason for Visit Bilateral Ischial Ulceration Ht/WT & BMI Height (Feet): 5 Height (Inches): 7.00 Weight (Kilograms): 113.500 Body Mass Index 39.27 Allergies Coded Allergies: No Known Drug Allergies (Verified Allergy, Unknown, 08/08/15) ONLY ALLERGIC TO DETERGENT PERFUME; NO DRUG ALLERGIES PER PATEINT Uncoded Allergies: PERFUME IN DETERGENT (Adverse Reaction, Severe, RED RASH, 07/27/12) Past Anesthesia History Anesthesia History: Denies:: Abnormal Airway, Anesthesia Reactions, Difficult Intubation, Malignant Hyperthermia Diabetes History Hx Diabetes?: No MRSA MRSA: Yes (IN URINE IN THE PAST) Medications Blood Thinner: Aspirin Reported Medications Multivitamin (Multi Vitamin Daily)1 Each Tablet1 Each PO DAILY 30 Days Ref 0 06/22/16 Phenytoin Sodium Extended 100 Mg [id number] Mg PO HS 06/22/16 Phenytoin Sodium Extended 100 Mg [id number] Mg PO noon 06/22/16 Ascorbic Acid (Vitamin C)500 Mg Capsule.er500 Mg PO DAILY 06/22/16 Discontinued Reported Medications Aspirin 325 Mg [id number] Mg PO DAILY #1 BOTTLE 06/22/16 [baclofen pump] No Conflict CheckUnknown Dose DAILY 06/22/16 History History of ENT Problems?: Yes HEENT History: Positive for:: Dysphagia (occasional) Denies:: Abnormal Airway Cataracts Difficult Intubation Glaucoma Sinus Problem Hx of Heart Problems?: Yes Cardiovascular History: Positive for:: Edema Denies:: Cardiac Surgery Chest Pain Congestive Heart Failure Heart Murmur Hypertension Irregular Heartbeat Pacemaker Thrombophlebitis Hx of Respiratory Problem?: Yes Respiratory History: Positive for:: Dyspnea Pneumonia (hx of recurrent) Denies:: Asthma COPD Chest Surgery Emphysema Hemoptysis Tuberculosis Use of C-PAP Machine (positive sleep study) Hx Neurologic Problems?: Yes Neurological History: Positive for:: Headaches Seizures (last seizure was over 3 years ago) Denies:: Alzheimer's Disease CVA Dementia Dizziness Parkinson's Disease Hx of GI Problems?: Yes Gastrointestinal History: Positive for:: Heartburn Denies:: Diverticulitis Gastroesphageal Reflux Gastrointestinal Bleeding Hepatitis Hiatal Hernia Rectal Bleeding Hx of Problems?: Yes Genitourinary History: Positive for:: Kidney Stones (hx of bladder stones) Urinary Tract Infection (recurrent) Other Pertinent History: chronic suprapubic catheter Male Hx: Positive for:: Testicular Surgery (AT DETACHED TESTICLE) Denies:: Scrotal Mass (scrotal edema) Skin History: Positive for:: History Skin Disorders? (recurrent ulcerations) Pressure Ulcers (left ischial ulcers current admission problem) Hx Musculoskeletal Problems?: Yes Musculoskeletal History: Positive for:: Back Injury (cervical fusion - quadriplegic) Musculoskeletal Trauma Denies:: Joint Replacement Hx of Psycho/Social Problems?: No Psycho Social History: Denies:: Anxiety Bipolar Disorder Hx Depression Suicide Attempt Hx Surgeries?: Yes (multiple, recent decub debridement) Hx Any Other Health Problems?: Yes Other History: Positive for:: Hospitalization Denies:: Cancer Endocrine Disease Thyroid Disease History Blood Transfusions: Denies:: Blood Transfuse Reaction Blood Transfusions Hx Diabetes: No Hx Alcohol Use: NoHx Substance Use: No Smoking Status: Never Smoker Have You Smoked inLast 12 mo: No Stop/Bang Treated for Sleep Apnea?: No Do You Have a CPAP Machine?: No S-Snoring: Do You Snore Loudly: Yes T-Tired: feel tired, fatigued: No O-Obsered: Observed not breath: No P-Blood Pressure: treated: No B- Body Mass Index > 35 kg/m2: Yes A- Age over 50: Yes N- Neck Large Circumference: Yes G- Gender Male: Yes DEEJAY Total Score: 5 Risk Assessment Category Category 1A: Patient has history of documented sleep apnea, and HAS NOT received any narcotic, sedative or anesthesia administration during this stay. Category 1B: Patient has history of documented sleep apnea, and HAS received any narcotic , sedative or anesthesia administration during this stay Category 2: Patient has SUSPECTED Obstructive Sleep Apnea, and HAS received any narcotic , sedative or anesthesia administration during this stay. Category 3: Patient has SUSPECTED Obstructive Sleep Apnea and HAS NOT received narcotic, sedative or anesthesia administration during this stay. Category 4: Outpatient in Procedural Areas with known sleep apnea or who screen positive for High Risk via the STOP/BANG questionnaire. Exam Exam Vital Signs Vital Signs Date Time Temp Pulse Resp B/P Pulse Ox O2 Delivery O2 Flow Rate FiO2 08/09/16 05:08 36.4 56 18 164/89 97 Room Air 08/09/16 00:56 36.8 56 20 130/68 99 Room Air General Appearance: Alert, Oriented X3, Cooperative, No Acute Distress HEENT/AIRWAY: MP 3, Neck Movement (limited ROM) Lungs: Clear to Auscultation, Normal Air Movement Heart: Exam Unremarkable, Regular Rate/Rhythm, No Murmurs/Rubs/Gallops Meds/Labs/Diagnostics Admission Meds Current Medications Phenytoin (Dilantin) 300 mg HS PO Last administered on 08/08/16t 21:35; Start 08/08/16 at 21:00 Labs Test 08/06/16 22:45 08/07/16 00:30 08/07/16 10:00 08/07/16 11:30 Lactic Acid Level 1.3mmol/L (0.4-2.0) Troponin T 0.010ug/L (0.0-0.011) Urine Color Dark yellow (YELLOW) Urine Appearance Cloudy (CLEAR,HAZY) Urine pH 6.0 (5.0-8.0) Urine Specific [place] 1.025 (1.003-1.035) Urine Protein 30mg/dL (NEG,TRACE) Urine Glucose (UA) Negativemg/dL (NEGATIVE) Urine Ketones Tracemg/dL (NEGATIVE) Urine Occult Blood Moderate (NEGATIVE) Urine Nitrite Positive (NEGATIVE) Urine Bilirubin Small (NEGATIVE) Urine Ictotest Positive (Negative) Urine Urobilinogen 1.0mg/dL (NORMAL) Urine Leukocyte Esterase Moderate (NEGATIVE) Urine RBC 11-50/hpf (0-2) Urine WBC Packed/hpf (0-5) Urine Epithelial Cells Few/hpf (NONE-MOD) Urine Crystals None seen (NONE SEEN) Urine Bacteria Many/hpf (NONE-FEW) Urine Hyaline Casts None/lpf (NONE) Urine Granular Casts None seen (NONE SEEN) Urine Waxy Casts None seen (NONE SEEN) Urine Red Blood Cell Casts None seen (NONE SEEN) Urine White Blood Cell Casts None seen (NONE SEEN) Urine Mucus None seen (None Seen) Urine Trichomonas None seen (NONE SEEN) Urine Yeast None (NONE SEEN) Urine Culture Reflexed Indicated Hemoglobin A1c 6.4% (4.8-5.6) Prothrombin Time 11.4sec (8.1-12.5) Prothromb Time International Ratio 1.06ratio Test 08/08/16 07:30 08/09/16 01:05 08/09/16 05:50 Erythrocyte Sedimentation Rate 29mm/hr (0-30) Magnesium Level 2.0mg/dL (1.6-2.6) Total Bilirubin 0.2mg/dL (0.0-1.2) Aspartate Amino Transf (AST/SGOT) 13U/L (0-50) Alanine Aminotransferase (ALT/SGPT) 7U/L (0-44) Alkaline Phosphatase 81U/L (25-150) Total Protein 5.7g/dL (6.4-8.4) Albumin 2.4g/dL (3.4-5.0) Procalcitonin 0.11ng/mL (0.00-0.08) Vancomycin Level Trough 13.6mcg/mL White Blood Count 10.1th/mm3 (3.8-10.1) Red Blood Count 3.99mil/mm3 (4.40-5.80) Hemoglobin 10.5g/dL (13.8-17.2) Hematocrit 33.4% (41.0-50.0) Mean Corpuscular Volume 83.7fL (81-100) Mean Corpuscular Hemoglobin 26.3pg (27.0-35.0) Mean Corpuscular Hemoglobin Concent 31.4% (32.0-37.0) Red Cell Distribution Width 14.9% (12.3-15.4) Platelet Count 318bil/L (150-400) Neutrophils (%) (Auto) 80.0% (40-74) Lymphocytes (%) (Auto) 8.1% (14-46) Monocytes (%) (Auto) 7.6% (4-12) Eosinophils (%) (Auto) 3.4% (0-5) Basophils (%) (Auto) 0.4% (0-3) Sodium Level 142mEq/L (134-144) Potassium Level 3.6mEq/L (3.5-5.2) Chloride Level 105mEq/L (97-108) Carbon Dioxide Level 24mmol/L (18-29) Blood Urea Nitrogen 5mg/dL (6-24) Creatinine < 0.30mg/dL (0.76-1.27) Estimat Glomerular Filtration Rate mL/min (>59) Glucose Level 132mg/dL (60-99) Calcium Level 7.6mg/dL (8.5-10.1) C-Reactive Protein 12.6mg/dL (0.0-0.5) Plan Impression Patient chart reviewed, patient interviewed and anesthestic plan with risks, benefits, and alternatives discussed, and informed consent obtained. NPO Status: 07/19 at 2100 ASA Physical Status: ASA3 Severe Disease Anesthetic Plan: MAC Bene/Risks/Altern/Consents: Yes HP Complete Prior to Induction: Yes Miles Partida MD Aug 09, 2016 07:22
--- NOTE | 2016-08-09 08:31 | PCM.ANEP1 ---
Post Anesthesia Phase 1 PACU Phase 1 Assessment Date of Service: Aug 09, 2016 Vital Signs Vital Signs Date Time Temp Pulse Resp B/P Pulse Ox O2 Delivery O2 Flow Rate FiO2 08/09/16 05:08 36.4 56 18 164/89 97 Room Air 08/09/16 00:56 36.8 56 20 130/68 99 Room Air Anesthetic Administered: MAC Level of Alertness: Awake, talking WATERMAN's with Equal Strength: No Pain: No Pain Scale Score: 0 Nausea or Vomiting: No Oxygen Delivery: Room Air Lungs: Clear to Auscultation, Normal Air Movement Miles Partida MD Aug 09, 2016 08:31
--- NOTE | 2016-08-09 08:32 | PCM.ANEP2 ---
Post Anesthesia Evaluation ASA/CMS Post Anesthesia VS in Patient's Normal Range?: Yes Resp Stable; Airway Patent?: Yes CV Function & Hydration Stable: Yes Mental Status Recovered?: Yes Pain control Satisfactory?: Yes N/V Control Satisfactory?: Yes Miles Partida MD Aug 09, 2016 08:32
[2016-08-09] MEDS: Polyethylene Glycol (PEG) 17 Gm Powder PO SCH ×2 (08:42→20:30)
[2016-08-09] MEDS: Famotidine Inj 20 MG in IV Premix 1 EACH IV SCH ×2 (08:42→21:16)
--- NOTE | 2016-08-09 09:47 | PCM.PNMED ---
Subjective Date of Service Aug 09, 2016 Subjective He was afebrile yesterday but his blood pressure has been fairly elevated. Pt went to surgery for further debridement this morning. He was seen afterwards and tolerated the procedure well. He has not had any CP, SOB, fevers, or headaches. He has a lot of worries about his medical well being and future care. Exam Vital Signs Vital Sign - Last Date Time Temp Pulse Resp B/P Pulse Ox O2 Delivery O2 Flow Rate FiO2 08/09/16 05:08 36.4 56 18 164/89 97 Room Air Intake and Output 08/08/16 08/08/16 08/09/16 Cumulative From/Thru 15:00 23:00 07:00 08/07/16 00:23 - 08/09/16 06:27 Intake Total 350 ml 1636 ml 1972 ml 7751 ml Output Total 750 ml 2400 ml 1750 ml 6850 ml Balance -400 ml -764 ml 222 ml 901 ml Intake Oral 350 ml 520 ml 1036 ml 2506 ml IV Total 1116 ml 936 ml 5245 ml Output Urine Total 750 ml 2400 ml 1750 ml 6850 ml # Bowel Movements 0 2 2 Exam Constitutional: Middle-aged male who is morbidly obese and in no acute distress , cooperative Head: Normocephalic atraumatic Chest: Clear to auscultation CV: Regular rate and rhythm Abdomen: Soft nontender bowel sounds present Extremities: Mildly atrophic and smooth skinned BLE : Suprapubic catheter in place, c/d/i Skin: Warm and dry with no rashes but there is a large tunneling ulcer of the left buttock and a moderate tunneling ulcer of the right buttock. Wounds are packed with Kerlix. Psych: Mood and affect are appropriate Neuro: Alert and oriented, Only flexion of right arm and full ROM of left arm. IVs and Medications Medications Reviewed: Medications were reviewed in detail Lab and Diagnostics Result Diagram: 08/09/16 0550 08/09/16 0550 X-Rays, CTs and MRIs CT PELVIS w con IMPRESSION: 1. Large bilateral decubitus ulcerations inferior to the bilateral ischial tuberosities. Additionally, gas tracks from the left ulceration posteriorly along the gluteal crease and towards the left femoral greater trochanter. It is unclear whether this represents necrotizing fasciitis, or extension of the decubitus ulcer. No abscess or fluid collection amenable to drainage. 2. Sclerosis of the right inferior obturator ring suspicious for chronic osteomyelitis. If further characterization is warranted, contrast-enhanced MRI of the pelvis is recommended. These findings are concordant with the overnight interpretation. Assessment & Plan 56 yo M with history of C5-C6 Quadriplegia and bilateral Ischial decubitus ulcers presents for acute onset of fevers, chills, and increasing pain and drainage from his ulcers. Hospital Day #3 # Acute sepsis, with penetrating ischial ulcers bilaterally, present on admission - Improving - Discussed criteria for sepsis with elevated white count of 18.2, febrile, tachycardic to 92, and Soft tissue, bacteremia, and UTI as other possible sources. - Placed on IV vancomycin per pharmacy, and IV Zosyn in the ED. Was also copiously hydrated with IV NS. - CT pelvis w con was suspicious of necrotizing fasciitis and Osteomyelitis. General surgery was consulted , Dr. Marroquin, reviewed case and recommends MRI to further assess Osteomyelitis, but NSTI is not a concern at the moment. - Infectious Disease consultation appreciated, will continue with recommendations. - CRP continues to improve, patient has been afebrile. Continuing with Vanc and Zosyn until cultures and CHAD return. #Bacteremia, acute -Patient's blood culture is growing out GPC x1 set so far. Patient's ulcer is likely source -Will manage per ID recommendations. #Chronic Severe Ischial Decubitus Ulcers, POA Stage IV decubitus ulcer on left buttock with extensive tunneling. Stage III ulcers on right buttock Dressing per inpatient wound care. General surgery will also follow along. Concrete Block Maker also following due to increased nutritional needs Was taken to OR for further debridement today. Further management per Gen Surgery and Wound care. - Attempted to obtain MRI, but Pt was unable to properly fit in MRI machine, so Gen Surg may possibly perform a bone scan to quantify osteomyelitis for future therapy. #UTI, POA UA is positive for Nitrites, packed wbc, and mod Leukocytes with 11-50 RBCs. Will await cultures, but continue with IV Zosyn for now # Hyponatremia, acute, present on admission, Resolved. - Resolved with IVF # C5-C6 quadriplegia, chronic, present on admission - Patient reports his Quadriplegia has been progressing and he has now lost motor function of his right triceps. - Continue supportive care - Continue Home med : Phenytoin - Will require Clinitron bed secondary to quadriplegia and decubitus ulcers - Patient has chronic constipation and would like an aggressive bowel regimen. - Suprapubic smith in place, will continue to monitor and replace as needed. #BMI 39.2 # CODE STATUS - Full code Dispo: Likely 2-3 days for IV antibiotics and stabilization. Pain Evaluation: Adequate Pain Control VTE Prophylaxis: SCDs (we will hold on subcutaneous anticoagulants given possibility of surgical debridement in the a.m.) Resuscitation Status: CPR: Attempt Resuscitation Attending Statement The patient was seen and examined together with Resident/House-staff on 08/09/16 and I agree with the history, exam and plan as outlined in the note above. Jonatan Billingsley DO Aug 09, 2016 07:44 Otto Oseguera Aug 09, 2016 18:07
--- NOTE | 2016-08-09 09:53 | OP ---
[address] [address] OPERATIVE REPORT PATIENT: LOBITO BILLINGSLEY : 1960 MR#: [id number] ADMIT: 08/07/2016 JOB ID: [id number] DATE OF SURGERY: 08/09/2016 SURGEON: Esteban Guerrero MD. PREOPERATIVE DIAGNOSIS(ES): Bilateral ischial pressure sores. POSTOPERATIVE DIAGNOSIS(ES): Bilateral ischial pressure sores. PROCEDURE: Debridement with bone biopsy of left ischial pressure sore. INDICATIONS: This is a 56-year-old man with a longstanding history of quadriplegia who has developed bilateral pressure sores that were initially debrided in May by Dr. Kern, but more recently debrided in June by Dr. Woodward on the left. He has been readmitted to the hospital, seen in consultation by Dr. Marroquin and I am asked to take him to the operating room for debridement and possible bone biopsy on the left. I reviewed his CAT scan preoperatively. This does demonstrate bilateral air pockets adjacent to the skin both on the left and the right, no subcutaneous gas. There was a question of osteomyelitis but he was unable to have an MRI. He was brought to the operating room for both debridement after wound evaluation from the supply chain specialist, as well as possible bone biopsy. I have discussed the case preoperatively with Dr. Vel Michael of infectious disease. FINDINGS: Compared to descriptions from the previous operation, both wounds appear to be cristóbal. The left wound was more or less clean with just some desiccated skin and necrotic fat that I debrided as described below but overall the bed of the wound was pink and healthy. I was able to break off two pieces of what appeared to be bone with finger dissection as described below and one piece was sent off for culture and one piece was sent off for pathologic review per my discussion with Dr. Michael. There was no debridement done on the right, and wound on the left prior to debridement, as well as following debridement, was measured at 10 cm in width, 8 cm in AP diameter and approximately 6 cm in depth from the skin to the bottom of the ulcer, although posterior, the ulcer does continue up and is contiguous with the bone as seen on the CT scan. Notably on the right side, the same is true of the ulcer by CT scan, though I did not explore that cavity. DESCRIPTION OF PROCEDURE: The patient was brought to the operating room. Surgical time-out was performed. The patient received IV sedation only for anesthesia. He was placed in strap stirrups. The perineum was prepped and draped in a sterile fashion. I then inspected the wounds. I did remove the old packing on both wounds prior to prepping and draping. The wounds overall looked healthy at their base, with clean granulation tissue. The left wound was measured. I probed it with my finger and was able to feel some bone spicule that I was able to break off with finger dissection. These were two very superficial pieces but I do believe that they represented bone cortex. Specimens were sent to Pathology and one was sent for Gram stain and culture. I now did a very small amount of dissection, primarily from the 1 o'clock to the 4 o'clock positions of just a 3 mm rim of desiccated skin and necrotic subcutaneous fat. From the 7 to 8 o'clock positions there was also some desiccated skin that was an approximately 3 mm rim, as well as a little bit more of what appeared to be necrotic fat, though as I got down to it, it was still semi-discolored fat. There was bleeding. I did a minimal amount of debridement, as my impression from reading Dr. Woodward's operative note of June was that this wound was basically cristóbal well from his dissection, and I felt that over-excessive sharp debridement would be inappropriate. There was a pale necrotic fascia/fat at the base that I excised with scissors. Hemostasis was achieved with electrocautery. The wound was irrigated out, and then both wounds were packed with saline-soaked Kerlix. The patient was transferred from the operating room to the table, to the [facility] and then taken immediately back to his specialty bed up on the 3rd floor. Procedure was tolerated well. There were no complications. Blood loss was minimal.
--- NOTE | 2016-08-09 11:21 | NUR ---
ABI: Patient refused
[2016-08-09] MEDS: Phenytoin 100 mg ER Capsule PO SCH ×2 (12:21→21:17)
--- NOTE | 2016-08-09 12:28 | PROG NOTE ---
[address] [address] PROGRESS NOTE PATIENT: LOBITO BILLINGSLEY : 1960 MR#: [id number] ADMIT: 08/07/2016 JOB ID: [id number] DATE: 08/09/2016 INFECTIOUS DISEASE FOLLOWUP NOTE: REASON FOR FOLLOWUP: Osteomyelitis left ischium in a quadriplegic. INTERVAL HISTORY: Yesterday we initially saw the patient and discussed him extensively with wound management. Debridement was recommended this morning and the patient was taken to the OR by Dr. Guerrero and I spoke to Dr. Guerrero this morning, both when he was in the OR and subsequent to his getting out of the operating room. I also extensively reviewed his op report. Dr. Guerrero found today that the right-sided wound was cristóbal and had good granulation tissue and did not perform any debridement. On the left side he found a moderate amount of necrotic material, but not as bad as he had feared. He went ahead and was able to get just with his finger some chunks of bone which have been sent for histo path as well as for culture. I have also discussed the proper management of these bone chips with microbiology. For his part, the patient feels about the same this morning. He has no fevers, chills, or new shortness of breath. He, of course, has no pain in his operative site secondary to his quadriplegia. He has no new GI or any other symptomatology. PHYSICAL EXAMINATION: Reveals an afebrile gentleman temperature 36.4, pulse 55, respiratory rate 17, blood pressure 119/65. He is in no acute distress. Awake and alert postoperatively. His oral cavity is negative. His lungs are relatively clear. His abdomen is soft and unchanged from yesterday. The patient's extremities as noted are wasted but without evidence of infection. He is lying supine in his bed, which has an air mattress, so we are not able to roll him over and look at his wounds but we plan to do so later with Blake from wound care. LABORATORIES: Include white count down to 10,000 today, 80% segs. Creatinine less than 0.3. CRP is falling, currently 12.6. Micro studies include blood culture one of four with a coag-negative staph, which is a contaminant. I spoke to the micro lab about his urine culture and it has five different organisms growing. I think it is grossly contaminated, as it came through the suprapubic tube, and we are going to be ignore the results of the culture. The initial wound swab that was done before debridement had moderate GPCs as well as Gram variable rods. A gram-negative aerobes is growing from the culture and I am certain that there were anaerobes as well. The bone sample that was taken just today of course is to early to evaluate. The pelvic CT scan was previously reviewed. IMPRESSION: It is now clear, based on Dr. Guerrero's findings at surgery, that the patient does have osteomyelitis in the left wound. This will likely require a six-week or more course of antibiotics and hopefully we can get away with oral antibiotics but more likely we are going to be forced to use IV. At this point, I would hold off on a PICC line while we await the identification of the organism or organisms which are growing there. RECOMMENDATIONS: 1. We await both pre- and post-operative cultures from the wound and from the bone. 2. Will continue for now with Zosyn. 3. I am going to go ahead now and stop the vancomycin, as I think it likely poses more toxicity risk than benefit while we await the cultures. 4. This plan was discussed with the patient and his caregiver, who is at the bedside.
[2016-08-09] MEDS ORDERED: Propofol 10,000 mCg/mL 20 mL Inj ONE (13:40)
--- NOTE | 2016-08-09 16:00 | NUR ---
Social Work-continued d/c planning: Data:EMR reviewed. Pt is on day 2 of hospitalization for bilateral ulcer per H&P. Pt is not medically stable anticipate several more days. SW reviewed wound care and ID notes. Wound care recommending SNF. ID recommending pt will need at least 6 weeks of IV abx. SW followed up with pt at bedside to discuss, SW role explained. SW explained the recommendation of SNF for wound care and IV abx, SNF choice list provided. Pt states he has been to [facility] and would like a referral sent to this facility. SW faxed PASRR and facesheet and provided access in [employer]. Paperwork and PASRR Placed in the chart. SW will continue to follow. Assessment:Pt would benefit from SNF. Plan:[facility]. Pt to need wound care and IV abx. Paperwork and PASRR Placed in the chart. SW will continue to follow. CHATO Ziegler
--- NOTE | 2016-08-09 16:02 | NUR ---
SNF choice list provided. CHATO Ziegler
--- NOTE | 2016-08-09 18:10 | NUR ---
BM/wound Pt refused bm meds yesterday and took some today but wanted nursing to manually extract stool. MD did not want nursing to extract stool until he adhered to a hospital bowel regiment. sustainable development policy analyst manually extracted a small hard piece of stool. Dressings after OR were moderately saturated with sero-sanguineous drainage. Wound care nurses did not want dressings changed today and said that he will be in tomorrow to re-dress and pack wounds. No direct visual.
[2016-08-10] VITALS (7 sets, daily range): BP systolic 133–179; BP diastolic 64–92; PULSE 49–60; RESP 18–20; O2SAT 96–99
[2016-08-10] MEDS: Piperacillin-Tazo 3.375 Gm Inj 3.375 GM in Dextrose 5% Minibag Plus 50 ML IV SCH ×3 (01:15→17:50)
--- NOTE | 2016-08-10 05:46 | NUR ---
Noc activity Pt has been cooperative with care. Denies chest pain, sob, n/v or abd discomfort. Complains of throbbing headache, administered prn morphine 2mg. Pt states no more headache. HS meds/ABx administered as scheduled. VSS, pt has been afebrile overnight. Clinitron bed running. Pt has slept most of the night.
[2016-08-10 06:18] LABS: BASOPHILS % (AUTO) 0.4 % (0-3); EOSINOPHILS % (AUTO) 3.5 % (0-5); MONOCYTES % (AUTO) 8.3 % (4-12); Mean Corpuscular Hemoglobin 26.3 pg (27.0-35.0); Mean Corpuscular Volume 84.5 fL (81-100); NEUTROPHILS % (AUTO) 78.6 % (40-74); Platelet Count 289 bil/L (150-400)
[2016-08-10] MEDS: Polyethylene Glycol (PEG) 17 Gm Powder PO SCH ×2 (07:53→20:30)
[2016-08-10] MEDS: Famotidine Inj 20 MG in IV Premix 1 EACH IV SCH (07:57)
[2016-08-10] MEDS: 0.9% Sodium Chloride 1,000 ML IV SCH ×2 (08:51→17:50)
--- NOTE | 2016-08-10 09:39 | PCM.PNMED ---
Subjective Date of Service Aug 10, 2016 Subjective Slept through most of the night. Was still sleepy this morning, but was easily arousable. He reports some mild abdominal pain, but denies any CP, SOB, or n/v. He continues to be afebrile. Exam Vital Signs Vital Sign - Last Date Time Temp Pulse Resp B/P Pulse Ox O2 Delivery O2 Flow Rate FiO2 08/10/16 04:58 37.0 54 20 141/72 96 Room Air Intake and Output 08/09/16 08/09/16 08/10/16 Cumulative From/Thru 15: 23:00 07:00 08/07/16 00:23 - 08/10/16 06:37 Intake Total 100 ml 3336 ml 2192 ml 70390 ml Output Total 605 ml 2800 ml 2300 ml 82486 ml Balance -505 ml 536 ml -108 ml 824 ml Intake Oral 2400 ml 1200 ml 6106 ml IV Total 100 ml 936 ml 992 ml 7273 ml Output Urine Total 600 ml 2800 ml 2300 ml 86703 ml Estimated Blood Loss 5 ml 5 ml # Bowel Movements 2 Exam Constitutional: Middle-aged male who is morbidly obese, mildly somnolent, cooperative Head: Normocephalic atraumatic Chest: Clear to auscultation CV: Regular rate and rhythm Abdomen: Soft, mildly tender in left quadrants, No masses palpated, decreased BS Extremities: Mildly atrophic and smooth skinned BLE : Suprapubic catheter in place, c/d/i Skin: Warm and dry with no rashes but there is a large tunneling ulcer of the left buttock and a moderate tunneling ulcer of the right buttock. Psych: Mood and affect are appropriate Neuro: Alert and oriented, Only flexion of right arm and full ROM of left arm. IVs and Medications Medications Reviewed: Medications were reviewed in detail Lab and Diagnostics Result Diagram: 08/10/16 0550 08/10/16 0550 X-Rays, CTs and MRIs CT PELVIS w con IMPRESSION: 1. Large bilateral decubitus ulcerations inferior to the bilateral ischial tuberosities. Additionally, gas tracks from the left ulceration posteriorly along the gluteal crease and towards the left femoral greater trochanter. It is unclear whether this represents necrotizing fasciitis, or extension of the decubitus ulcer. No abscess or fluid collection amenable to drainage. 2. Sclerosis of the right inferior obturator ring suspicious for chronic osteomyelitis. If further characterization is warranted, contrast-enhanced MRI of the pelvis is recommended. These findings are concordant with the overnight interpretation. Assessment & Plan 56 yo M with history of C5-C6 Quadriplegia and bilateral Ischial decubitus ulcers presents for acute onset of fevers, chills, and increasing pain and drainage from his ulcers. Hospital Day #4 # Acute sepsis, with penetrating ischial ulcers bilaterally, present on admission - Improving - Discussed criteria for sepsis with elevated white count of 18.2, febrile, tachycardic to 92, and Soft tissue, bacteremia, and UTI as other possible sources. - Placed on IV vancomycin per pharmacy, and IV Zosyn in the ED. Was also copiously hydrated with IV NS. - CT pelvis w con was suspicious of necrotizing fasciitis and Osteomyelitis. General surgery was consulted , Dr. Marroquin, reviewed case and recommends MRI to further assess Osteomyelitis, but NSTI is not a concern at the moment. - Infectious Disease consultation appreciated, will continue with recommendations. - CRP continues to improve, patient has been afebrile. Continuing with Zosyn and stopping Vanc, unlikely MRSA. Abscess culture did grow pansensitive E.coli - Still awaiting blood culture CHAD to tailor care before discharge. #Bacteremia, acute -Patient's blood culture is growing out GPC x1 set so far. Patient's ulcer is likely source -Will manage per ID recommendations. #Chronic Severe Ischial Decubitus Ulcers, POA Stage IV decubitus ulcer on left buttock with extensive tunneling. Stage III ulcers on right buttock Dressing per inpatient wound care. General surgery will also follow along. Overhead Crane Truck Loader also following due to increased nutritional needs Was taken to OR for further debridement on 08/09. Further management per Gen Surgery and Wound care. #Abdominal pain, acute Mild left sided abd pain likely due to constipation. Patient has been refusing bowel regimen in the hospital and requesting manual dis-impaction instead. We have been continuing to educate patient on importance of bowel regimen. If pain does worsen, may need imaging. #Unlikely UTI, POA UA is positive for Nitrites, packed wbc, and mod Leukocytes with 11-50 RBCs on admit Urine culture final as contamination. # Hyponatremia, acute, present on admission, Resolved. - Resolved with IVF # C5-C6 quadriplegia, chronic, present on admission - Patient reports his Quadriplegia has been progressing and he has now lost motor function of his right triceps. - Continue supportive care - Continue Home med : Phenytoin - Will require Clinitron bed secondary to quadriplegia and decubitus ulcers - Patient has chronic constipation and would like an aggressive bowel regimen. - Suprapubic smith in place, will continue to monitor and replace as needed. #BMI 39.2 # CODE STATUS - Full code Dispo: Likely a few more days for IV antibiotics, debridement, and wound care. Pain Evaluation: Adequate Pain Control VTE Prophylaxis: SCDs (we will hold on subcutaneous anticoagulants given possibility of surgical debridement in the a.m.) Resuscitation Status: CPR: Attempt Resuscitation Attending Statement The patient was seen and examined together with Resident / House-staff on and I agree with the history, exam and plan as outlined in the note above. Jonatan Billingsley DO Aug 10, 2016 09:39 Otto Oseguera Aug 11, 2016 17:05
--- NOTE | 2016-08-10 10:29 | NUR ---
digital bowel program caregiver is here and asking for this RN to digitally dis-impact patient. pt is refusing hospital bowel program meds and prefers to be dis-impacted digitally. pt's caregiver performed the digital dis-impaction for her client while this RN and fire extinguisher charger assisted.
[2016-08-10] MEDS: Phenytoin 100 mg ER Capsule PO SCH ×2 (11:52→21:28)
--- NOTE | 2016-08-10 12:01 | NUR ---
Wound Care Patient seen for dressing changes bilateral ischial pressure injuries. Patient is 1 day post op surgical debridement of left ulcer' On dressing change today left wound measures 13 cms front to back 8 cms side to side and 6 cms in depth, I am able to probe posterior to the ischial tuberosity. I am unable to tell if black tissue remaining in this wound is secondary to cautery in surgery or means there is further necrosis of the wound. Of note wound is draining only minimally today and does not have an odor. Both left and right wounds were redressed with moist gauze packing ( 1 piece in either wound) held in place with panties. right ulcer measures 5 cm front to back, 4 cms side to side and a depth of 6 cms and again I am able to probe behind ischial tuberosity of this ulcer also. Will recheck on this patient tomorrow. Because of the proximity of these wounds to the rectum I do not think he would be a candidate for negative pressure wound therapy.
--- NOTE | 2016-08-10 12:24 | PROG NOTE ---
[address] [address] PROGRESS NOTE PATIENT: LOBITO BILLINGSLEY : 1960 MR#: [id number] ADMIT: 08/07/2016 JOB ID: [id number] DATE: 08/10/2016 INFECTIOUS DISEASE FOLLOWUP NOTE: REASON FOR FOLLOWUP: Osteomyelitis in a quadriplegic gentleman. INTERVAL HISTORY: The patient is awake and alert this morning. He tells us that he is not having fevers or chills. He has no respiratory or other new complaints. PHYSICAL EXAMINATION: Reveals an afebrile quadriplegic gentleman lying in his Clinitron bed. Temp 36.2, pulse 52, respiratory rate 20, blood pressure 163/70. He is awake, alert as noted. Oral cavity benign. Lungs relatively clear, though with poor excursion as expected in a quadriplegic. His abdomen is without focal tenderness or masses. We did not roll the patient over to examine his packed site where the debridement was performed, though we did discuss it with both surgery and wound management. LABORATORIES: Include a white count of 10,000 today. Diff is only 78% segs, otherwise normal. Creatinine less than 0.3. CRP is down to 11.4. Cultures of note include an E. coli which is very sensitive growing from the decubitus ulcer where the osteomyelitis was discovered. Also there is an anaerobe growing there as well. Urine had multiple organisms and was clearly contaminated at 1/4 blood cultures did grow, but it was a coag-negative staph. IMPRESSION: This patient has osteomyelitis and it appears to be polymicrobial with E. coli and anaerobes present. We await the additional cultures which were done in surgery but at this point it would appear we are going to need six weeks or so of intravenous antibiotics. RECOMMENDATIONS: 1. We await the final cultures from the surgery and the preop. 2. Will continue with Zosyn for now. 3. I see no indication for vancomycin or any other antibiotics. 4. The plan was discussed with the patient's two caretakers, as well as with the patient himself. At this point will plan for six weeks of IV antibiotics directed at the osteomyelitis and there are discussions underway about possible flaps and/or other surgical interventions to be done down the road.
[2016-08-10] MEDS ORDERED: Vancomycin Serum Trough XX ONE (13:00)
--- NOTE | 2016-08-10 14:58 | NUR ---
Social Work-continued d/c planning: Data:EMR reviewed. Pt is on day 3 of hospitalization for bilateral ulcer per H&P. Pt is not medically stable for discharge at this time. Wound care and ID continue to be involved in pt's care. CASS spoke with Rosa Maria dowd at [facility] who states they are still reviewing and awaiting final recommendations from ID for IV abx that will be needed at discharge. Paperwork and PASRR are in the chart. SW will continue to follow. Assessment:Pt who would benefit from SNF. Plan:[facility] has been faxed. Paperwork and PASRR are in the chart. SW will continue to follow. CHATO Ziegler
--- NOTE | 2016-08-10 16:27 | NUR ---
anxiety pt is highly anxious about the possibility of having his leg cut off. He requests some medication for his nerves. pt also request a visit from the MD to discuss options of care.
[2016-08-10] MEDS ORDERED: LORazepam 0.5 mg Tablet PO PRN (17:10)
[2016-08-11] MEDS: Piperacillin-Tazo 3.375 Gm Inj 3.375 GM in Dextrose 5% Minibag Plus 50 ML IV SCH ×3 (02:36→18:11)
[2016-08-11 05:55] VITALS: PULSE 54
--- NOTE | 2016-08-11 06:37 | NUR ---
Anxiety/Refusing vitals and medications Patient refused night time bowel medications and vital sign checks. Patient is aware of the risk of refusing these. Patient awoke at 0300 anxious. states he can not sleep. Patient medicated with ativan 0.5mg PO per request 30 minutes later patient observed sleeping.
[2016-08-11 08:00] VITALS: PULSE 49
[2016-08-11] MEDS: Polyethylene Glycol (PEG) 17 Gm Powder PO SCH ×2 (08:30→11:21)
[2016-08-11 08:44] LABS: BASOPHILS % (AUTO) 0.4 % (0-3); EOSINOPHILS % (AUTO) 3.4 % (0-5); MONOCYTES % (AUTO) 7.7 % (4-12); Mean Corpuscular Hemoglobin 26.3 pg (27.0-35.0); Mean Corpuscular Volume 84.3 fL (81-100); NEUTROPHILS % (AUTO) 79.1 % (40-74); Platelet Count 277 bil/L (150-400)
[2016-08-11 09:07] VITALS: BP 161/81; PULSE 51; RESP 18; O2SAT 95
--- NOTE | 2016-08-11 10:44 | NUR ---
Spoke with Rosa Maria at [facility] and they are not able to accept patient due to high complexity and wound care needs. The alternative to the clinatron bed is mamta, but between the director and owner e commerce company have decided this patient is not one that they can meet the needs of. Updated JEWEL HOLE ROUGH OPENER Addendum: 08/11/16 at 1118 by KAL SOLIMAN CM Gave access and [facility] Patient is refusing [facility] referral at this time.
--- NOTE | 2016-08-11 11:04 | NUR ---
Social Work: Continued d/c planning Data: Pt is on day 4 of hospitalization. EMR reviewed. [facility] cannot take pt. ASSOCIATE ART DIRECTOR met with pt to discuss LTAC option of [place], pt states he refuses to go to [place] stating he has been there in the past and will not go back. ASSOCIATE ART DIRECTOR asked about other SNF options, pt states that he does not know. ASSOCIATE ART DIRECTOR asked pt if referrals can be sent out broadly to see if any can work with him. Pt stated "Ok, I guess so". ASSOCIATE ART DIRECTOR asked pt again and he again complied but was not excited about the idea. ASSOCIATE ART DIRECTOR asked UR specialist to refer pt to SNF in the area. UR specialist referred pt to [facility], [facility], and [facility]. ASSOCIATE ART DIRECTOR will continue to follow. Assessment: Pt with caregiving at baseline. Plan: D/C plan in progress. UR specialist referred pt to [facility], [facility], and [facility]. [facility] has declined pt. Pt has declined to be referred to [place]. ASSOCIATE ART DIRECTOR will continue to follow. CHATO Palma
--- NOTE | 2016-08-11 11:45 | NUR ---
Medication refusal/disimpaction Pt refused all bowel medication offered this AM. This RN educated pt on the importance of keeping stool soft with a goal of regular BMs. Pt reports caregivers digitally disimpact him at home. This RN educated pt regarding risks associated with digital disimpaction, such at bowel perforation. Pt continues to refused all bowel meds. Addendum: 08/11/16 at 1253 by BELKIS OLVERA RN At appro 1130. pt relayed to WRIST CLOSER, he would like the AM bowel meds. This RN brought bowel meds to bedside, pt sts "does not want to take bowel meds" Reports was told the hospital staff would be willing to perform digital disimpaction. This RN instructed pt, notes only reveal that caregivers are completing procedure. Pt requesting to speak with charge rn, Shay Zacarias came to bedside as requested. Will continue to monitor.
[2016-08-11 12:42] VITALS: BP 156/85; PULSE 51; RESP 16; O2SAT 97
[2016-08-11] MEDS ORDERED: Sodium Biphos-Phos 133 mL Enema RECTAL PRN (13:05)
[2016-08-11] MEDS: Phenytoin 100 mg ER Capsule PO SCH ×2 (13:05→21:36)
[2016-08-11] MEDS: 0.9% Sodium Chloride 1,000 ML IV SCH (13:05)
--- NOTE | 2016-08-11 13:38 | PCM.PNMED ---
Subjective Date of Service Aug 11, 2016 Subjective Uneventful overnight, afebrile. He reports some abdominal pain this morning, which he thinks is likely due to his constipation. He otherwise denies any CP, SOB, or fevers. Exam Vital Signs Vital Sign - Last Date Time Temp Pulse Resp B/P Pulse Ox O2 Delivery O2 Flow Rate FiO2 08/11/16 12:42 37.2 51 16 156/85 97 Room Air Intake and Output 08/10/16 08/10/16 08/11/16 Cumulative From/Thru 15:00 23:00 07:00 08/07/16 00:23 - 08/11/16 04:42 Intake Total 2173 ml 318 ml 18042 ml Output Total 3200 ml 1900 ml 83821 ml Balance -1027 ml -1582 ml -1785 ml Intake Oral 1600 ml 318 ml 8024 ml IV Total 573 ml 7846 ml Output Urine Total 3200 ml 1900 ml 86971 ml Estimated Blood Loss 5 ml # Bowel Movements 1 3 Exam Constitutional: Middle-aged male who is morbidly obese, mildly somnolent but cooperative Head: Normocephalic atraumatic Chest: Clear to auscultation CV: Regular rate and rhythm Abdomen: Soft, mildly tender in left quadrants, some stool like masses palpated , decreased BS Extremities: Mildly atrophic and smooth skinned BLE : Suprapubic catheter in place, c/d/i Skin: Warm and dry Psych: Mood and affect are appropriate Neuro: Alert and oriented, Only flexion of right arm and full ROM of left arm. IVs and Medications Medications Reviewed: Medications were reviewed in detail Lab and Diagnostics Result Diagram: 08/11/16 0539 08/11/16 0539 X-Rays, CTs and MRIs CT PELVIS w con IMPRESSION: 1. Large bilateral decubitus ulcerations inferior to the bilateral ischial tuberosities. Additionally, gas tracks from the left ulceration posteriorly along the gluteal crease and towards the left femoral greater trochanter. It is unclear whether this represents necrotizing fasciitis, or extension of the decubitus ulcer. No abscess or fluid collection amenable to drainage. 2. Sclerosis of the right inferior obturator ring suspicious for chronic osteomyelitis. If further characterization is warranted, contrast-enhanced MRI of the pelvis is recommended. These findings are concordant with the overnight interpretation. Assessment & Plan 56 yo M with history of C5-C6 Quadriplegia and bilateral Ischial decubitus ulcers presents for acute onset of fevers, chills, and increasing pain and drainage from his ulcers. Hospital Day #5 # Acute sepsis, with penetrating ischial ulcers bilaterally, present on admission - Improving - Discussed criteria for sepsis with elevated white count of 18.2, febrile, tachycardic to 92, and Soft tissue, bacteremia, and UTI as other possible sources. - Placed on IV vancomycin per pharmacy, and IV Zosyn in the ED. Was also copiously hydrated with IV NS. - CT pelvis w con was suspicious of necrotizing fasciitis and Osteomyelitis. General surgery was consulted , Dr. Marroquin, reviewed case and recommends MRI to further assess Osteomyelitis, but NSTI is not a concern at the moment. - Infectious Disease consultation appreciated, will continue with recommendations. - CRP continues to improve, patient has been afebrile. Continuing with Zosyn and stopping Vanc, unlikely MRSA. - Abscess cultures did grow pansensitive E.coli and P. aeruginosa and Bacteroides. - Still awaiting blood culture CHAD to tailor care before discharge, will likely require weeks of IV abx. #Bacteremia, acute -Patient's blood culture is growing out GPC x1 set so far. Patient's ulcer is likely source -Will manage per ID recommendations. #Chronic Severe Ischial Decubitus Ulcers with likely osteomyelitis, POA Stage IV decubitus ulcer on left buttock with extensive tunneling. Stage III ulcers on right buttock Dressing per inpatient wound care. General surgery will also follow along. Weaving Teacher also following due to increased nutritional needs Was taken to OR for further debridement on 08/09. Further management per Gen Surgery and Wound care. Bone tissue cultures pending. #Abdominal pain, acute Mild left sided abd pain likely due to constipation. Patient has been refusing bowel regimen in the hospital and requesting manual dis-impaction instead. We have been continuing to educate patient on importance of bowel regimen. Patient was more willing to do an enema today. #Unlikely UTI, POA UA is positive for Nitrites, packed wbc, and mod Leukocytes with 11-50 RBCs on admit Urine culture final as contamination. # Hyponatremia, acute, present on admission, Resolved. - Resolved with IVF # C5-C6 quadriplegia, chronic, present on admission - Patient reports his Quadriplegia has been progressing and he has now lost motor function of his right triceps. - Continue supportive care - Continue Home med : Phenytoin - Will require Clinitron bed secondary to quadriplegia and decubitus ulcers - Patient has chronic constipation and would like an aggressive bowel regimen. - Suprapubic smith in place, will continue to monitor and replace as needed. #BMI 39.2 # CODE STATUS - Full code Dispo: Likely a few more days for IV antibiotics, debridement, and wound care. Pain Evaluation: Adequate Pain Control VTE Prophylaxis: SCDs (we will hold on subcutaneous anticoagulants given possibility of surgical debridement in the a.m.) Resuscitation Status: CPR: Attempt Resuscitation Attending Statement The patient was seen and examined together with Resident / House-staff on and I agree with the history, exam and plan as outlined in the note above. Jonatan Billingsley DO Aug 11, 2016 13:38 Otto Oseguera Aug 11, 2016 17:33
--- NOTE | 2016-08-11 14:12 | PATH ---
SURGICAL PATHOLOGY Attending Physician:Esteban Guerrero MD CASE STATUS: Signed Out PATIENT NAME: LOBITO BILLINGSLEY PID: [id number] : 1960 DATE COLLECTED:08/09/2016 17:30 SPECIMEN: Bone, Biopsy CLINICAL HISTORY: BILATERAL ISCHIAL PRESSURE SORES,BILATERAL ISCHIAL PRESSURE SORES 1). LEFT ISCHIAL BONE FINAL DIAGNOSIS: 1.LEFT ISCHIAL BONE: BONE FRAGMENTS WITH ACUTE OSTEOMYELITIS. NO EVIDENCE OF MALIGNANCY. ICD10 CODE M86.9 GROSS DESCRIPTION: The specimen is received in one formalin filled container labeled with the patient's name, sublabeled "left fascial bone" and consists of a 0.7 x 0.6 x 0.1 CM white-hadley portion of bone. The specimen is entirely submitted in one cassette. The specimen will be placed in decal for softening. 08/09/2016 DAC MICRO DESCRIPTION: See diagnosis. ICD-9 CODES: CPT CODES: 17028 Electronically Signed Out Melany Love MD [facility] [address], [place] [address] Technical component performed at [facility], [address] [place] [address] Ave[address], [place], [address]
--- NOTE | 2016-08-11 14:41 | PROG NOTE ---
[address] [address] PROGRESS NOTE PATIENT: LOBITO BILLINGSLEY : 1960 MR#: [id number] ADMIT: 08/07/2016 JOB ID: [id number] DATE: 08/11/2016 INFECTIOUS DISEASE FOLLOW UP NOTE: REASON FOR FOLLOWUP: Ischial osteomyelitis in a quadriplegic gentleman. INTERVAL HISTORY: The patient has no new complaint today. He is feeling worried and a bit concerned about the diagnosis of osteomyelitis and possible consideration for plastic surgery. He has no fevers, chills or sweats today. He is not more short of breath than at baseline and, of course, he has no pain related to his ulcers. PHYSICAL EXAMINATION: Reveals an afebrile gentleman, temperature 37.2, blood pressure 156/85. He is saturating well on room air. He is in no acute distress. Lungs are clear though with poor excursion. Cardiac tones without change. Abdomen benign. No skin rash noted. We discussed the case in detail again with Mr. Blake Holden of the wound care team. LABORATORIES: Include white count 9600, which is normalized. The differential is 79% segs, otherwise normal. Creatinine less than 0.3. CRP is 11.7, which has basically been stable for a few days. Micro: The bone culture done in surgery is growing what appears to be two different gram-negative rods and we await the susceptibility. The MRSA screen of the nose was negative. The culture of the wound that was done before debridement is growing a Bacteroides species, E. coli and Pseudomonas, both gram negatives are sensitive to Cipro with the E. coli having an CHAD of 0.5 which is sort of borderline whereas the Pseudomonas is less than 0.25. IMAGING: No new imaging has been done. IMPRESSION: This patient clearly has an ischial osteomyelitis in a very extensive decubitus ulcer. Optimal management of this would include debridement and perhaps flap and maybe even a colostomy to divert stool away from the healing decubitus. Whether the patient will accept this and whether a surgeon will be found who is willing to attempt it is unknown at this time, but I think the best antibiotic regimen here would be oral Cipro and Flagyl. Even though the CHAD of the E coli is 0.5, it is likely that at high doses, Cipro will be adequate for this, and a combination of Cipro and Flagyl has enormous advantages for this quadriplegic gentleman in that he will not need home IV infusion or placement in a retirement just for management of IV antibiotics. RECOMMENDATIONS: 1. I would continue Zosyn as long as he remains in the hospital. 2. Will go ahead and get started on the Cipro 750 b.i.d. If that is not available, we would instead use levo 750 b.i.d. but it is likely Cipro is a little bit better agent for these enteric gram negatives. 3. Once the patient is ready to go, I would send him out on Cipro 750 b.i.d. to complete a total of six weeks of therapy. I would also give him Flagyl 500 b.i.d. for four weeks. I am reluctant to give Flagyl much more than four weeks because of possible cumulative toxicity. I recognize that the patient would probably not be bothered by peripheral neuropathy which would be a complication of concern but I do think that four weeks will be an adequate course. 4. I will be out of town the next three days but the residents who work with me will be seeing some of the patients and give me a call on Monday, the . I think this patient could probably be made ready for discharge or transfer to a SNF in the very near future depending on what is planned surgically.
--- NOTE | 2016-08-11 15:42 | NUR ---
Enema Pt agrees to sitting on BSC with tenor lift and administration of enema. Sling placed under pt, with assistance from PT. Pt lifted and placed on BSC, enema administered. Pt sat on BSC for about 10 minutes, No BM occurred, several small pea sized flecks were in bucket. Will continue to monitor,
--- NOTE | 2016-08-11 16:13 | NUR ---
Helen from [facility] will come and do an onsite visit with pt to assess if they can accept pt. [facility] states that they cannot accept pt. CHATO Palma
[2016-08-11 17:29] VITALS: BP 124/81; PULSE 50; RESP 16; O2SAT 96
--- NOTE | 2016-08-11 17:47 | NUR ---
Wound care Patient seen for wound care of bilateral ischial pressure ulcers. Left ischial wound with necrotic fat and subcutaneous tissue, this was removed with curved mosquitos, wound copiously irrigated with saline and suctioned with wall suction, repacked with saline moist gauze packing. Right ischial wound is irrigated and packed with saline moist gauze. Clinitron bed is functioning, wounds are stable, dressing to be changed by source water protection specialist in am.
[2016-08-11 21:21] VITALS: BP 159/88; PULSE 71; RESP 16; O2SAT 94
[2016-08-12 01:18] VITALS: BP 145/75; PULSE 55; RESP 16; O2SAT 96
[2016-08-12] MEDS: Piperacillin-Tazo 3.375 Gm Inj 3.375 GM in Dextrose 5% Minibag Plus 50 ML IV SCH ×3 (02:29→16:45)
--- NOTE | 2016-08-12 04:42 | NUR ---
Refused care Patient refused to have me turn him to look at his bottom and check for stool. patient acknowledges that he has no sensation of his bowels and is aware of the complications of sitting in his stool for too long with skin break down. despite the education patient continues to refuse. Patient states "my poop smells really bad you will know". will continue to monitor. patient denies pain. slept throughout the night.
[2016-08-12 06:07] VITALS: PULSE 46
[2016-08-12 06:33] LABS: BASOPHILS % (AUTO) 0.4 % (0-3); EOSINOPHILS % (AUTO) 3.5 % (0-5); MONOCYTES % (AUTO) 7.7 % (4-12); Mean Corpuscular Hemoglobin 26.4 pg (27.0-35.0); NEUTROPHILS % (AUTO) 77.1 % (40-74); Platelet Count 260 bil/L (150-400)
[2016-08-12 06:44] VITALS: BP 138/78; PULSE 68; RESP 16; O2SAT 95
[2016-08-12 08:00] VITALS: PULSE 48
[2016-08-12] MEDS: Polyethylene Glycol (PEG) 17 Gm Powder PO SCH ×2 (08:30→20:30)
[2016-08-12 10:24] VITALS: BP 149/86; PULSE 54; RESP 18; O2SAT 98
--- NOTE | 2016-08-12 11:55 | NUR ---
Social Work: Readiness for d/c Data: Pt is on day 5 fo hospitalization. EMR reviewed. states pt likely ready for d/c today. Helen from [facility] is coming to hospital to meet with pt to assess if they can take pt or not. TRANSFER OPERATOR met with pt and parents who again state that they do not want pt to go to [facility] and that their back up plan for SNF would be pt going home. They want to meet with Helen to discuss SNF. TRANSFER OPERATOR will continue to follow. Assessment: Pt with caregiving at baseline. Plan: Pt will d/c either to SNF or to home with MANNY and possible private pay caregiving. TRANSFER OPERATOR will continue to follow post assessment from SNF. CHATO Palma
[2016-08-12] MEDS: Phenytoin 100 mg ER Capsule PO SCH ×2 (12:51→20:49)
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
--- NOTE | 2016-08-12 13:57 | NUR ---
[facility] cannot take pt. CHATO Palma
--- NOTE | 2016-08-12 15:21 | NUR ---
Activity Pt on Clinitron bed, has agreed to be rolled from side to side today, has been rolled ever 2 hours. Pt was seen by wound care, area debrided by Dr Casey and uTtu Sims. Per wound care, pt to be up to personal wheelchair for 15 minutes at a time. Family will bring wheelchair in for pt. Will continue to monitor.
--- NOTE | 2016-08-12 15:42 | NUR ---
Wound Care Pt seen at bedside for dressing change by Dr Murry of general surgery, further necrotic tissue was removed by Dr Murry from the left ischial wound. Both right and left ischial wounds are stable and will need daily packing with saline moist gauze daily by nursing over the weekend. Will need at a minimum nursing for dressing changes if patient discharges home, strict adherence to 15 minutes in chair a must on discharge as well. Needs clinitron bed at home as well. Follow up with wound care in 1-2 weeks after discharge.
--- NOTE | 2016-08-12 16:00 | NUR ---
Social Work: Continued d/c planning Data: METAL LOADER met with pt and parents at bedside. They state understanding that no SNF has accepted pt. Pt and parents are concerned that pt cannot sit in a wheel chair for more than 15 minutes, per wound care. METAL LOADER states that an ambulance could be set up for his transportation home. They are also concerned that they do not have the clinitron bed delivered and set up at their home yet. METAL LOADER states that pt will need to d/c from the hospital once medically stable and that waiting on the bed is likely not a reason to remain in the hospital. METAL LOADER encouraged them to determine when the soonest they can deliver the bed is, wait to see ID in the AM of 08/13, and talk with hospitalist regarding anticipated stay at the hospital. METAL LOADER will follow up with pt tomorrow. Assessment: Pt with assistance at baseline. Plan: Pt will likely d/c home when medically stable. Pt's family working on clinitron bed. METAL LOADER will continue to follow. CHATO Palma
--- NOTE | 2016-08-12 16:36 | PCM.PNMED ---
Subjective Date of Service Aug 12, 2016 Subjective Lizandro Sahu is a 56 year old man with history significant for C5-C6 Quadriplegia and bilateral Ischial decubitus ulcers under treatment for osteomyelitis and ongoing infection of bilateral ischial decubitus ulcers. Hospital Day #6 Overnight: No acute events. Today: Patient feels fine but he is anxious about where he will be discharge to after this hospitalization. The remainder of the review of systems is negative except as note above. Exam Vital Signs Vital Sign - Last Date Time Temp Pulse Resp B/P Pulse Ox O2 Delivery O2 Flow Rate FiO2 08/12/16 10:24 36.4 54 18 149/86 98 Room Air Intake and Output 08/11/16 08/11/16 08/12/16 Cumulative From/Thru 15:00 23:00 07:00 08/07/16 00:23 - 08/12/16 06:44 Intake Total 1729 ml 970 ml 80955 ml Output Total 2400 ml 52656 ml Balance -671 ml 970 ml -1486 ml Intake Oral 400 ml 8424 ml IV Total 1329 ml 970 ml 03621 ml Output Urine Total 2400 ml 87946 ml Estimated Blood Loss 5 ml # Bowel Movements 3 Exam Constitutional: Middle-aged male who is morbidly obese, mildly somnolent but cooperative Head: Normocephalic atraumatic Chest: Clear to auscultation CV: Regular rate and rhythm Abdomen: Soft, mildly tender in left quadrants, some stool like masses palpated , decreased BS Extremities: Mildly atrophic and smooth skinned BLE : Suprapubic catheter in place, c/d/i Skin: Warm and dry Psych: Mood and affect are appropriate Neuro: Alert and oriented, Only flexion of right arm and full ROM of left arm. IVs and Medications Medications Reviewed: Medications were reviewed in detail Lab and Diagnostics Result Diagram: 08/12/16 0610 08/12/16 0610 X-Rays, CTs and MRIs CT PELVIS WITH CONTRAST IMPRESSION: 1. Large bilateral decubitus ulcerations inferior to the bilateral ischial tuberosities. Additionally, gas tracks from the left ulceration posteriorly along the gluteal crease and towards the left femoral greater trochanter. It is unclear whether this represents necrotizing fasciitis, or extension of the decubitus ulcer. No abscess or fluid collection amenable to drainage. 2. Sclerosis of the right inferior obturator ring suspicious for chronic osteomyelitis. If further characterization is warranted, contrast-enhanced MRI of the pelvis is recommended. These findings are concordant with the overnight interpretation. Dictated by: Paola Wang M.D. on 08/07/2016 at 7:10 Assessment & Plan Lizandro Sahu is a 56 year old man with history significant for C5-C6 Quadriplegia and bilateral Ischial decubitus ulcers under treatment for osteomyelitis and ongoing infection of bilateral ischial decubitus ulcers. Hospital Day #6 1. 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 -Stage IV decubitus ulcer on left buttock with extensive tunneling. Stage III ulcers on right buttock -Dressing per inpatient wound care. -General surgery consulted. Appreciate time and input. -Break Up Worker also following due to increased nutritional needs -Was taken to OR for further debridement on 08/09. Further management per Gen Surgery and Wound care. -Bone tissue cultures pending. -Wound cultures growing pseudomonas, bacteroides and E. Coli -Antibiotic management per ID. Currently on Zosyn, day 6. Plan to be discharged with PO Cipro or Levaquin for 6 weeks and 4 weeks of Flagyl. -Reportedly there has been some error involving the cultures of the bone and they will be re-incubated. 2. Sepsis, acute, with penetrating ischial ulcers bilaterally, present on admission, resolved. - Discussed criteria for sepsis with elevated white count of 18.2, febrile, tachycardic to 92, and soft tissue infection as source - Placed on IV vancomycin per pharmacy, and IV Zosyn in the ED. Was also copiously hydrated with IV NS. - CRP continues to improve, patient has been afebrile. Continuing with Zosyn, unlikely MRSA. 3. Abdominal pain, acute, present on admission. -Mild left sided abd pain likely due to constipation. Patient has been refusing bowel regimen in the hospital and requesting manual dis-impaction instead. -We have been continuing to educate patient on importance of bowel regimen. 4. Hypovolemic hyponatremia, acute, present on admission, resolved - Resolved with IVF 5. C5-C6 quadriplegia, chronic, present on admission - Patient reports his Quadriplegia has been progressing and he has now lost motor function of his right triceps. - Continue supportive care - Continue home med : Phenytoin - Will require Clinitron bed secondary to quadriplegia and decubitus ulcers - Patient has chronic constipation and would like an aggressive bowel regimen. - Suprapubic Rosario in place, will continue to monitor and replace as needed. 6. BMI 39.2 7. Septicemia -Appears to be contaminant Dispo: Patient would benefit from discharge to a SNF for better wound care and more frequent turns. Patient is currently under review for placement. Family would also consider taking him home and acquiring a Clinitron bed. He will likely be inpatient for several more days while his antibiotic regiment is sorted out. VTE Prophylaxis: SCDs (we will hold on subcutaneous anticoagulants given possibility of surgical debridement in the a.m.) Resuscitation Status: CPR: Attempt Resuscitation Attending Statement The patient was seen and examined together with Dr. Minor on 08/12 and I agree with the history, exam and plan as outlined in the note above Emely Minor DO Aug 12, 2016 16:36 Ernesto Larson MD Aug 12, 2016 18:07
--- NOTE | 2016-08-12 18:03 | NUR ---
Patient care: This nurse acquired patient care at 1600. Patient stated that he is having no pain. He was turned q2 hours by 2 nursing staff members.The pad covering patients buttocks wounds was changed while tuning patient. The pad had a very small amount of dried blood. Patient stated that the area is void of feeling and pain that was surgically debreded
--- NOTE | 2016-08-12 20:05 | PCM.PROC ---
Procedure Note Date of Service: Aug 12, 2016 Pre Procedure Diagnosis: Left ischial pressure ulcer, stage 4 Post Procedure Diagnosis: Left ischial pressure ulcer, stage 4. Procedure: Bedside debridement of Left ischial wound Provider and Machine Veneer Repairer: Surgeon: Jermaine Murry MD Resident: Perla Leon DO Wound Care: Blake [facility] Ind[facility] for Procedure: 56-year-old quadriplegic gentleman with bilateral pressure ulcers s/p debridement in May by Dr. Kern, again in June by Dr. Woodward and most recently on 08/09/[address] Guerrero with biopsy of ischium on the left showing osteomyelitis. Seen today for dressing change and further necrosis noted in the left ischial wound and the decision made to perform bedside debridement. Findings: Necrosis of subcutaneous tissue and fat noted at the base and along the posterior margin of the left ischial wound. Procedural Analgesia: None Procedure Details: Patient was positioned in the right lateral recumbent position and the bilateral ischial wounds were inspected. The right wound looked healthy with clean granulation tissue and the left wound was noted to have necrosis of the fat and subcutaneous tissue along the posterolateral margin with extension to the base. The remainder of the wound appeared healthy and a small, ~2cm incision along a previous incisional scar, was made on the posterolateral border of the left ischial wound to extend the cavity for better exposure. A minimal amount of sharp debridement of necrotic fascia and fat was performed which revealed pink and apparently healthy tissue underneath. There was no debridement done on the right, and wound on the left prior to debridement, as well as following debridement, was measured at 10 cm in width, 8 cm in AP diameter and approximately 6 cm in depth from the skin to the bottom of the ulcer. There was minimal bleeding and sterile gauze applied under direct pressure with adequate control. A Kerlix stack was then placed and packed in ischial ulcers bilaterally and a sterile dressing applied. The patient tolerated the procedure well and there were no complications. Specimen: None Post Procedure Plan: -Daily wound care including daily packing with saline moist gauze -Continue antibiotics per ID Attending Statement I was present at the bedside and supervised the procedure the entire time. Perla Leon DO Aug 12, 2016 17:14 Ronen Murry MD Aug 17, 2016 10:53
[2016-08-12 20:16] VITALS: BP 154/75; PULSE 61; RESP 18; O2SAT 97
[2016-08-13] MEDS: Piperacillin-Tazo 3.375 Gm Inj 3.375 GM in Dextrose 5% Minibag Plus 50 ML IV SCH ×3 (02:29→17:21)
[2016-08-13 05:13] VITALS: BP 146/74; PULSE 66; RESP 16; O2SAT 98
[2016-08-13 06:38] LABS: BASOPHILS % (AUTO) 0.5 % (0-3); EOSINOPHILS % (AUTO) 4.5 % (0-5); MONOCYTES % (AUTO) 7.7 % (4-12); Mean Corpuscular Hemoglobin 26.3 pg (27.0-35.0); NEUTROPHILS % (AUTO) 73.4 % (40-74); Platelet Count 241 bil/L (150-400)
--- NOTE | 2016-08-13 07:48 | NUR ---
wound dressing change pt dressing was wet with blood. changed per order. pt has been complaining about not being disimpacted for his bowel regimen. Pt has no sensation below west.wants to be check more frequently than q2hr if he went for BM, but explain pt if he wants to be checked we can check him Q2hr unless he has the feeling that he went BM and call us. we checked him if he had BM q2 hr.no BM tonight.
[2016-08-13] MEDS: Polyethylene Glycol (PEG) 17 Gm Powder PO SCH ×2 (08:01→20:30)
[2016-08-13 10:05] VITALS: BP 118/76; PULSE 57; RESP 16; O2SAT 97
--- NOTE | 2016-08-13 10:26 | NUR ---
ABI signed Verbal consent to sign. CHATO Palma
--- NOTE | 2016-08-13 10:30 | NUR ---
Social Work: Continued d/c planning Data: Pt is on day 6 of hospitalization. EMR reviewed. Pt discussed in rounds. MD states pt likely to remain in hospital until at least Monday. ACADEMIC AFFAIRS VICE PRESIDENT met with pt and family and informed them of this. They state that the clinitron bed will be delivered to pt's home on Monday. Pt is concerned about wound care follow up. They state that wound care states he cannot sit in a chair for more than 15 minutes and they would be over that to get to the wound care follow up appointment. Pt will see wound care on Monday, per , and ACADEMIC AFFAIRS VICE PRESIDENT will follow up with them regarding a workable d/c plan with wound care follow up. Pt will likely require BLS transportation home when medically stable, ACADEMIC AFFAIRS VICE PRESIDENT will conference with UR specialist regarding this. ACADEMIC AFFAIRS VICE PRESIDENT offered HH choice list, pt states he has had [facility] in the past and to see if they can work with him first, pt is open to [facility] also. ACADEMIC AFFAIRS VICE PRESIDENT left a message with Panchito Rodney of [facility] referring pt, access given. F2F in ACADEMIC AFFAIRS VICE PRESIDENT folder. Assessment: Pt with MANNY and caregiving at baseline. Plan: Pt will d/c home when medically stable with clinitron bed arriving on Monday. [facility] referred. Wound care to see pt on Monday, per , ACADEMIC AFFAIRS VICE PRESIDENT to follow up with wound care regarding pt's wound care follow up. Pt likely to need BLS transportation home. ACADEMIC AFFAIRS VICE PRESIDENT will continue to follow. CHATO Palma
[2016-08-13] MEDS: Phenytoin 100 mg ER Capsule PO SCH ×2 (11:42→21:18)
--- NOTE | 2016-08-13 14:48 | NUR ---
HTN Patient had blood pressure of 180/102. Patient had no PRN medications for BP. notified and ordered Labetalol 100mg once. Medication administered. Will continue to monitor patient BP. Addendum: 08/13/16 at 1451 by ROSETTE MONTES RN Disregard note. Wrong Patient
--- NOTE | 2016-08-13 14:52 | NUR ---
Refusal of Bowel meds Patient had order for Senna, Miralax, and psyllium powder in the AM. Patient was informed of medications due. Patient refused any bowel medication saying, "I don't normally take those at home so I don't see why I should take them now". Bowel medications held due to patient refusal.
--- NOTE | 2016-08-13 15:25 | PCM.PNMED ---
Subjective Date of Service Aug 13, 2016 Subjective Uneventful overnight Has been tolerating antibiotics well. Denies any CP, SOB, fevers, or diarrhea. Exam Vital Signs Vital Sign - Last Date Time Temp Pulse Resp B/P Pulse Ox O2 Delivery O2 Flow Rate FiO2 08/13/16 10:05 36.4 57 16 118/76 97 Room Air Intake and Output 08/12/16 08/12/16 08/13/16 Cumulative From/Thru 15:00 23:00 07:00 08/07/16 00:23 - 08/13/16 05:13 Intake Total 2400 ml 750 ml 47239 ml Output Total 2000 ml 2200 ml 73437 ml Balance 400 ml -1450 ml -2536 ml Intake Oral 2400 ml 750 ml 13799 ml IV Total 65590 ml Output Urine Total 2000 ml 2200 ml 68276 ml Estimated Blood Loss 5 ml # Bowel Movements 3 Exam Constitutional: Middle-aged male who is morbidly obese, mildly somnolent but cooperative Head: Normocephalic atraumatic Chest: Clear to auscultation CV: Regular rate and rhythm Abdomen: Soft, mildly tender in left quadrants, decreased BS Extremities: Mildly atrophic and smooth skinned BLE : Suprapubic catheter in place, c/d/i Skin: Warm and dry Psych: Mood and affect are appropriate Neuro: Alert and oriented, Only flexion of right arm and full ROM of left arm. IVs and Medications Medications Reviewed: Medications were reviewed in detail Lab and Diagnostics Result Diagram: 08/13/1615 08/13/16 0615 X-Rays, CTs and MRIs CT PELVIS WITH CONTRAST IMPRESSION: 1. Large bilateral decubitus ulcerations inferior to the bilateral ischial tuberosities. Additionally, gas tracks from the left ulceration posteriorly along the gluteal crease and towards the left femoral greater trochanter. It is unclear whether this represents necrotizing fasciitis, or extension of the decubitus ulcer. No abscess or fluid collection amenable to drainage. 2. Sclerosis of the right inferior obturator ring suspicious for chronic osteomyelitis. If further characterization is warranted, contrast-enhanced MRI of the pelvis is recommended. These findings are concordant with the overnight interpretation. Dictated by: Paola Wang M.D. on 08/07/2016 at 7:10 Assessment & Plan Lizandro Sahu is a 56 year old man with history significant for C5-C6 Quadriplegia and bilateral Ischial decubitus ulcers under treatment for osteomyelitis and ongoing infection of bilateral ischial decubitus ulcers. Hospital Day #7 1. 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 -Stage IV decubitus ulcer on left buttock with extensive tunneling. Stage III ulcers on right buttock -Dressing per inpatient wound care. -General surgery consulted. Appreciate time and input. -Spa Concierge also following due to increased nutritional needs -Was taken to OR for further debridement on 08/09. Further management per Gen Surgery and Wound care. -Bone tissue cultures growing E.coli, Acinetobacter, and Bacteroides. -Wound cultures growing Pseudomonas, Bacteroides and E. Coli -Antibiotic management per ID. Currently on Zosyn, day 7. Plan to be discharged with PO Cipro or Levaquin for 6 weeks and 4 weeks of Flagyl per ID recommendation when stable -Reportedly there has been some error involving the cultures of the bone and they will be re-incubated. 2. Sepsis, acute, with penetrating ischial ulcers bilaterally, present on admission, resolved. - Discussed criteria for sepsis with elevated white count of 18.2, febrile, tachycardic to 92, and soft tissue infection as source - Placed on IV vancomycin per pharmacy, and IV Zosyn in the ED. Was also copiously hydrated with IV NS. - CRP has been mildly improving. 3. Abdominal pain, acute, present on admission. -Mild left sided abd pain likely due to constipation. Patient has been refusing bowel regimen in the hospital and requesting manual dis-impaction instead. -We have been continuing to educate patient on importance of bowel regimen. 4. Hypovolemic hyponatremia, acute, present on admission, resolved - Resolved with IVF 5. C5-C6 quadriplegia, chronic, present on admission - Patient reports his Quadriplegia has been progressing and he has now lost motor function of his right triceps. - Continue supportive care - Continue home med : Phenytoin - Will require Clinitron bed secondary to quadriplegia and decubitus ulcers - Patient has chronic constipation and would like an aggressive bowel regimen. - Suprapubic Rosario in place, will continue to monitor and replace as needed. 6. BMI 39.2 7. Septicemia -Appears to be contaminant Dispo: Patient would benefit from discharge to a SNF for better wound care and more frequent turns. Patient is currently under review for placement. Family would also consider taking him home and acquiring a Clinitron bed. He will likely be inpatient for several more days while his antibiotic regimen is tailored to antibiotic sensitivities. Pain Evaluation: Adequate Pain Control VTE Prophylaxis: SCDs (we will hold on subcutaneous anticoagulants given possibility of surgical debridement in the a.m.) Resuscitation Status: CPR: Attempt Resuscitation Time spent 30 minutes Attending Statement I have seen and evaluated patient at bedside in addition to directly supervising care provided by resident physician. I agree with above documentation. Jonatan Billingsley DO Aug 13, 2016 15:25 Jaison Johnson DO Aug 14, 2016 12:54
[2016-08-13 18:18] VITALS: BP 100/61; PULSE 56; RESP 18; O2SAT 96
[2016-08-13 22:02] VITALS: BP 148/76; PULSE 52; RESP 18; O2SAT 98
[2016-08-14] MEDS: Piperacillin-Tazo 3.375 Gm Inj 3.375 GM in Dextrose 5% Minibag Plus 50 ML IV SCH ×3 (04:01→18:43)
--- NOTE | 2016-08-14 04:30 | NUR ---
Refusal of Bowel Medication Pt continues to refuse bowel medications stating, "I don't know why you guys need to give me so many pills. I don't take these at home, why should I take them now." RN educated pt on importance of taking prescribed medications. Call light within reach. Frequent turns during the night. Frequent rounding in place.
[2016-08-14 05:11] VITALS: BP 147/80; PULSE 53; RESP 18; O2SAT 98
[2016-08-14 05:36] LABS: BASOPHILS % (AUTO) 0.7 % (0-3); MONOCYTES % (AUTO) 7.4 % (4-12); Mean Corpuscular Hemoglobin 26.7 pg (27.0-35.0); NEUTROPHILS % (AUTO) 69.4 % (40-74); Platelet Count 219 bil/L (150-400)
[2016-08-14] MEDS: Polyethylene Glycol (PEG) 17 Gm Powder PO SCH ×2 (08:30→20:30)
[2016-08-14] MEDS: Phenytoin 100 mg ER Capsule PO SCH ×2 (11:30→20:45)
--- NOTE | 2016-08-14 12:19 | PCM.PNMED ---
Subjective Date of Service Aug 14, 2016 Subjective Lizandro Sahu is a 56 year old man with history significant for C5-C6 Quadriplegia and bilateral Ischial decubitus ulcers under treatment for osteomyelitis and ongoing infection of bilateral ischial decubitus ulcers. Hospital Day #8 Overnight: No acute events. Today: Patient states he feels much better today and is happy his ulcers are draining less than they have been. He still notes some mild abdominal discomfort. The remainder of the review of systems is negative except as noted above. Exam Vital Signs Vital Sign - Last Date Time Temp Pulse Resp B/P Pulse Ox O2 Delivery O2 Flow Rate FiO2 08/14/16 05:11 36.6 53 18 147/80 98 Room Air Intake and Output 08/13/16 08/13/16 08/14/16 Cumulative From/Thru 15:00 23:00 07:00 08/07/16 00:23 - 08/13/16 18:48 Intake Total 869 ml 58421 ml Output Total 700 ml 03920 ml Balance 169 ml -2367 ml Intake Oral 518 ml 86745 ml IV Total 351 ml 73185 ml Output Urine Total 700 ml 17993 ml Estimated Blood Loss 5 ml # Bowel Movements 0 3 Exam Constitutional: Middle-aged male who is morbidly obese, mildly somnolent but cooperative Head: Normocephalic atraumatic Chest: Clear to auscultation CV: Regular rate and rhythm Abdomen: Soft, mildly tender in left quadrants, decreased BS Extremities: Mildly atrophic and smooth skinned BLE : Suprapubic catheter in place, c/d/i Skin: Warm and dry Psych: Mood and affect are appropriate Neuro: Alert and oriented, Only flexion of right arm and full ROM of left arm. IVs and Medications Medications Reviewed: Medications were reviewed in detail Lab and Diagnostics Result Diagram: 08/14/16 0501 08/14/16 0501 X-Rays, CTs and MRIs CT PELVIS WITH CONTRAST IMPRESSION: 1. Large bilateral decubitus ulcerations inferior to the bilateral ischial tuberosities. Additionally, gas tracks from the left ulceration posteriorly along the gluteal crease and towards the left femoral greater trochanter. It is unclear whether this represents necrotizing fasciitis, or extension of the decubitus ulcer. No abscess or fluid collection amenable to drainage. 2. Sclerosis of the right inferior obturator ring suspicious for chronic osteomyelitis. If further characterization is warranted, contrast-enhanced MRI of the pelvis is recommended. These findings are concordant with the overnight interpretation. Dictated by: Paola Wang M.D. on 08/07/2016 at 7:10 Assessment & Plan Lizandro Sahu is a 56 year old man with history significant for C5-C6 Quadriplegia and bilateral Ischial decubitus ulcers under treatment for osteomyelitis and ongoing infection of bilateral ischial decubitus ulcers. Hospital Day #8 1. 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 -Stage IV decubitus ulcer on left buttock with extensive tunneling. Stage III ulcers on right buttock -Dressing per inpatient wound care. -General surgery consulted. Appreciate time and input. -Casting Carrier also following due to increased nutritional needs -Was taken to OR for further debridement on 08/09. Further management per Gen Surgery and Wound care. -Wound cultures growing Pseudomonas, Bacteroides and E. Coli -Antibiotic management per ID. Currently on Zosyn, day 8. Plan to be discharged with PO Cipro or Levaquin for 6 weeks and 4 weeks of Flagyl per ID recommendation when stable -Reportedly there has been some error involving the cultures of the bone and they will be re-incubated. -Bone cultures resulting in acenobacter in addition to bacteriodes and E. Coli. Will continue with current antibiotics at this time follow up with Dr. Michael' s recommendations. 2. Sepsis, acute, with penetrating ischial ulcers bilaterally, present on admission, resolved. - Discussed criteria for sepsis with elevated white count of 18.2, febrile, tachycardic to 92, and soft tissue infection as source - Placed on IV vancomycin per pharmacy, and IV Zosyn in the ED. Was also copiously hydrated with IV NS. - CRP has been mildly improving. 3. Abdominal pain, acute, present on admission. -Mild left sided abd pain likely due to constipation. Patient has been refusing bowel regimen in the hospital and requesting manual dis-impaction instead. -We have been continuing to educate patient on importance of bowel regimen. 4. Hypovolemic hyponatremia, acute, present on admission, resolved - Resolved with IVF 5. C5-C6 quadriplegia, chronic, present on admission - Patient reports his Quadriplegia has been progressing and he has now lost motor function of his right triceps. - Continue supportive care - Continue home med: Phenytoin - Will require Clinitron bed secondary to quadriplegia and decubitus ulcers - Patient has chronic constipation and would like an aggressive bowel regimen. - Suprapubic Rosario in place, will continue to monitor and replace as needed. 6. BMI 39.2 7. Bacteremia -Appears to be contaminant Dispo: Patient would benefit from discharge to a SNF for better wound care and more frequent turns. Patient is currently under review for placement. Family would also consider taking him home and acquiring a Clinitron bed. He will likely be inpatient for 1-2 more days while his antibiotic regimen is tailored to antibiotic sensitivities. VTE Prophylaxis: SCDs (we will hold on subcutaneous anticoagulants given possibility of surgical debridement in the a.m.) Resuscitation Status: CPR: Attempt Resuscitation Time spent 25 minutes Attending Statement I have seen and evaluated patient at bedside in addition to directly supervising care provided by resident physician. I agree with above documentation. Emely Minor DO Aug 14, 2016 12:19 Jaison Johnson DO Aug 15, 2016 07:44
[2016-08-14 13:26] VITALS: BP 148/85; PULSE 49; RESP 16; O2SAT 98
--- NOTE | 2016-08-14 18:22 | NUR ---
Daily update Patient alert and oriented X3. Patient continues to use Clinitron bed due to previous pressure wound. Patient continues to have IV antibiotics for infection to wound. Patient denied pain and was compliant with care, except for bowel medication. Patient continues to refuse bowel medication as he does not take at home.
[2016-08-14 20:15] VITALS: BP 110/69; PULSE 52; RESP 16; O2SAT 98
[2016-08-15] MEDS: Piperacillin-Tazo 3.375 Gm Inj 3.375 GM in Dextrose 5% Minibag Plus 50 ML IV SCH ×3 (01:54→17:42)
[2016-08-15 05:48] VITALS: BP 99/64; PULSE 52; RESP 16; O2SAT 95
[2016-08-15 07:45] LABS: BASOPHILS % (AUTO) 1.2 % (0-3); EOSINOPHILS % (AUTO) 4.4 % (0-5); MONOCYTES % (AUTO) 7.8 % (4-12); Mean Corpuscular Hemoglobin 26.4 pg (27.0-35.0); Mean Corpuscular Volume 82.5 fL (81-100); Platelet Count 227 bil/L (150-400)
[2016-08-15] MEDS: Polyethylene Glycol (PEG) 17 Gm Powder PO SCH ×2 (08:23→20:30)
--- NOTE | 2016-08-15 09:37 | NUR ---
verbal consent to [facility] at [phone]
[2016-08-15] MEDS: Phenytoin 100 mg ER Capsule PO SCH ×2 (12:20→20:57)
--- NOTE | 2016-08-15 14:30 | NUR ---
Wound Care Patient seen at bedside for wound care, pt on clinitron bed. Packing removed from left and right ischial wounds, left ischial wound (stage 4 PU) appears stable with no further development of necrotic tissue since Dr Murry's debridement at bedside on 08/12/16. Bone is still palpable in the base of the wound, drainage is brown tinged and with minimal odor. Dr Michael present to visualize wounds at time of dressing change. Wound is copiously irrigated with saline and repacked with saline moist gauze. Right ischial wound (stage 4 PU) remains clean and granular without any necrotic tissue visible in the wound. Bone is palpable in the wound base,drainage is moderate, and greenish in color, there is minimal odor. This wound is copiously irrigated with saline and repacked with saline moist gauze. Patient tolerated treatment well. Will measure and redress wounds prior to discharge tomorrow. Plan will be for home health to see patient 2-3 times per week for wound assessment and dressing changes; caregivers to help with dressing changes as they have in the past. Patient apparently has obtained a clinitron bed for home use. After repeated conversations regarding his health patient is aware of the severity of his wounds and understands that strict adherence to a schedule that includes only 15 minutes of seating at one time and otherwise to be bedfast are crucial if any progress is to be made in the healing of his wound/ulcers (stage 4 PU's). Patient to be seen at wound Center 1x/month starting 09/07/16.
--- NOTE | 2016-08-15 14:36 | PCM.PNMED ---
Subjective Date of Service Aug 15, 2016 Subjective Afebrile overnight, blood pressures somewhat labile. Denies any CP, SOB, fevers, or TOMLIN this morning. Reports his generalized pain is at baseline. Exam Vital Signs Vital Sign - Last Date Time Temp Pulse Resp B/P Pulse Ox O2 Delivery O2 Flow Rate FiO2 08/15/16 05:48 36.5 52 16 99/64 95 Room Air Intake and Output 08/14/16 08/14/16 08/15/16 Cumulative From/Thru 15:00 23:00 07:00 08/07/16 00:23 - 08/15/16 06:12 Intake Total 0 ml 780 ml 400 ml 76226 ml Output Total 800 ml 775 ml 875 ml 25370 ml Balance -800 ml 5 ml -475 ml -3637 ml Intake Oral 0 ml 600 ml 400 ml 60944 ml IV Total 180 ml 37071 ml Output Urine Total 800 ml 775 ml 875 ml 15355 ml Estimated Blood Loss 5 ml # Bowel Movements 0 0 0 3 Exam Constitutional: Middle-aged male who is morbidly obese, in NAD Head: Normocephalic atraumatic Chest: Clear to auscultation CV: Regular rate and rhythm Abdomen: Soft, NT, ND, normoactive BS. Extremities: Mildly atrophic and smooth skinned BLE : Suprapubic catheter in place, c/d/i Skin: Warm and dry Psych: Mood and affect are appropriate Neuro: Alert and oriented, Only flexion of right arm and full ROM of left arm. IVs and Medications Medications Reviewed: Medications were reviewed in detail Lab and Diagnostics Result Diagram: 08/15/1660108/15/16 06 X-Rays, CTs and MRIs CT PELVIS WITH CONTRAST IMPRESSION: 1. Large bilateral decubitus ulcerations inferior to the bilateral ischial tuberosities. Additionally, gas tracks from the left ulceration posteriorly along the gluteal crease and towards the left femoral greater trochanter. It is unclear whether this represents necrotizing fasciitis, or extension of the decubitus ulcer. No abscess or fluid collection amenable to drainage. 2. Sclerosis of the right inferior obturator ring suspicious for chronic osteomyelitis. If further characterization is warranted, contrast-enhanced MRI of the pelvis is recommended. These findings are concordant with the overnight interpretation. Dictated by: Paola Wang M.D. on 08/07/2016 at 7:10 Assessment & Plan Lizandro Sahu is a 56 year old man with history significant for C5-C6 Quadriplegia and bilateral Ischial decubitus ulcers under treatment for osteomyelitis and ongoing infection of bilateral ischial decubitus ulcers. Hospital Day #8 1. 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 -Stage IV decubitus ulcer on left buttock with extensive tunneling. Stage III ulcers on right buttock -Dressing per inpatient wound care. -General surgery consulted. Appreciate time and input. -Elementary [employer] Teacher also following due to increased nutritional needs -Was taken to OR for further debridement on 08/09. Further management per Gen Surgery and Wound care. -Wound cultures growing Pseudomonas, Bacteroides and E. Coli -Antibiotic management per ID. Currently on Zosyn, day 9. Plan was to be discharged with PO Cipro or Levaquin for 6 weeks and 4 weeks of Flagyl per ID recommendation when stable, but new antibiotic sensitivity will require different regimen likely. -Bone cultures resulting in acinetobacter in addition to bacteriodes and E. Coli. -Awaiting ID recommendation for antibiotics with new CHAD from tissue culture. 2. Sepsis, acute, with penetrating ischial ulcers bilaterally, present on admission, resolved. - Discussed criteria for sepsis with elevated white count of 18.2, febrile, tachycardic to 92, and soft tissue infection as source - Placed on IV vancomycin per pharmacy, and IV Zosyn in the ED. Was also copiously hydrated with IV NS. - CRP has been mildly improving. 3. Abdominal pain, acute, present on admission. -Mild left sided abd pain likely due to constipation. Patient has been refusing bowel regimen in the hospital and requesting manual dis-impaction instead. -We have been continuing to educate patient on importance of bowel regimen. -Improved after enema 4. Hypovolemic hyponatremia, acute, present on admission, resolved - Resolved with IVF 5. C5-C6 quadriplegia, chronic, present on admission - Patient reports his Quadriplegia has been progressing and he has now lost motor function of his right triceps. - Continue supportive care - Continue home med: Phenytoin, may need a Phenytoin level. - Will require Clinitron bed secondary to quadriplegia and decubitus ulcers - Patient has chronic constipation and would like an aggressive bowel regimen. - Suprapubic Rosario in place, will continue to monitor and replace as needed. 6. BMI 39.2 7. Bacteremia -Appears to be contaminant Dispo: Likely discharge tomorrow if on appropriate PO antibiotics. Pain Evaluation: Adequate Pain Control VTE Prophylaxis: SCDs (we will hold on subcutaneous anticoagulants given possibility of surgical debridement in the a.m.) Resuscitation Status: CPR: Attempt Resuscitation Time spent 25 minutes Attending Statement I have seen and evaluated patient at bedside in addition to directly supervising care provided by resident physician. I agree with above documentation. Jonatan Billingsley DO Aug 15, 2016 14:36 Jaison Johnson DO Aug 15, 2016 14:49
[2016-08-15 14:53] VITALS: BP 156/82; PULSE 57; RESP 18; O2SAT 99
--- NOTE | 2016-08-15 15:10 | NUR ---
Social Work-readiness for discharge: Data:EMR Reviewed. Pt is on day 8 of hospitalization for bilateral ulcer per H&P. Pt is not medically stable today anticipate tomorrow. ID continues to be involved and anticipates pt to be able to return home on oral abx. CASS spoke with Blake from Wound care today who confirms that pt will fine to return home with Home health coming out 2-3 times a week and then going to wound care center monthly. CASS confirms plan with pt at bedside and he is agreeable. CASS placed a call to pt's father Marc [phone] and confirms that bed is going to be delivered tomorrow. CASS requested that Marc call SW once bed has been delivered so SW can move forward with discharge. CASS also explained that HH has been set up to assist with wound care, father agreeable to plan. Pt will likely need BLS transport home. F2F in folder. SW will continue to follow. Assessment:Pt who would benefit from HH and caregivers. Plan:Pt to discharge home when medically stable via POV. [facility] referral made for RN-wound care. Pt's father confirms bed is supposed to be delivered tomorrow and will call SW once it has been delivered. Pt to continue with home caregivers through [facility]. F2F in folder. SW will continue to follow. CHATO Ziegler
--- NOTE | 2016-08-15 16:52 | PROG NOTE ---
[address] [address] PROGRESS NOTE PATIENT: LOBITO BILLINGSLEY : 1960 MR#: [id number] ADMIT: 08/07/2016 JOB ID: [id number] DATE: 08/15/2016 REASON FOR FOLLOWUP: Extensive, left greater than right ischial ulcers with probable underlying osteomyelitis. INTERVAL HISTORY: Recall that this is the 56-year-old, long-term quadriplegic with recurrent infections of the skin, soft tissue, and bones related to ongoing decubitus ulcers. When I last saw the patient four days ago, we had found evidence of multiple gram-negative rods as well as anaerobes, and he was being treated with oral Cipro 750 b.i.d., as well as IV Zosyn. Our plan was to send the patient out on Cipro and Flagyl for an extended period to treat what appears to be osteomyelitis, based upon the intraoperative findings of Dr. Guerrero, as well as the histo path that was obtained in our clinical impression. We had been waiting for the final culture from the intraoperative work done by Dr. Guerrero on the as well as the histo path reports before a final decision on antibiotics. Over the weekend, the patient has done relatively well without fevers, chills, new shortness of breath, or increased purulence from his wounds. Keeping in mind the patient is a quadriplegic with little in the way of sensation below his cervical injury, the patient has not changed over the weekend in terms of his overall symptoms. PHYSICAL EXAMINATION: The patient remains afebrile, temp 36.5, pulse 52, respiratory rate 16, blood pressure 99/64. He is saturating fairly well on room air. Examination of the mental status reveals it to be clear. Lungs are relatively clear. Cardiac tones without new murmur though distant. The abdomen is benign. I carefully examined the wound in conjunction with the wound management team. The patient has an extremely deep and extensive left ischial ulcer which extends all the way down to bone. There is no addis odor or purulent material present in the bottom of this large wound, though bone is palpable. On the right side there is a considerably smaller but deep wound which is granulating well and does not have any drainage or purulence. The lower extremities are otherwise unchanged. Labs include a white count of 8400 with a normal diff. His creatinine is 0.3. CRP has come steadily down since admission a week ago when it was 21, and it is now down to 6, which represents dramatic improvement with antibiotics and debridement. The micro studies are revealing. Recall that one out of four blood cultures grew coag-negative staph. A culture of the deep abscess on the left ischium grew E. coli, Pseudomonas aeruginosa, and Bacteroides. Both the E coli and Pseudomonas are sensitive to Cipro. The intraoperative culture by Dr. Guerrero, which was done several days later, grew E. coli and the Bacteroides, but also grew a carbapenem-resistant Acinetobacter. That Acinetobacter turns out to be resistant to Unasyn, cefoxitin, quinolones, carbapenems, and Zosyn, and it is very resistant to all those antibiotics. It is sensitive, interestingly, to Bactrim. The Pseudomonas that was found in the initial culture on August 07 was not found in the intraoperative culture on the August 09. Also of note is the histo path from that procedure which showed bone fragments with clear-cut osteomyelitis. IMPRESSION: This is an unfortunate, 56-year-old gentleman who has been quadriplegic for about 26 years with a history of recurrent severe pressure ulcers. His home situation has not been ideal as he only has a caregiver about 8 hours out of each 24-hour period and spends much time in unfavorable positions on his bed at home. The patient does not wish to go to a alf and is planning to return home in the near future with the plan to purchase a used Clinitron bed and he is currently raising the money from friends and family to purchase this better bed in terms of his ulceration. The question posed to the ID team is what to do with these isolates. When I last saw the patient four days ago, I was happy that we had found this Pseudomonas, E. coli and Bacteroides as we could use a prolonged oral regimen of Cipro and Flagyl. The finding of the highly resistant Acinetobacter in one of the two cultures is confusing and makes the choice more difficult. Acinetobacters are commonly found as colonizers in chronic wounds, especially in patients who are in and out of the hospital frequently such as this patient. They can also be formidable agents of osteomyelitis and soft tissue infection. Given the fact that his isolate came from only one of two samples and was present only in light growth, I think it is much more likely that the E. coli and the Bacteroides are the main players. Also note that we have been treating the patient with Zosyn and quinolones over the past few days and his CRP has come down even as his wound drainage has improved without any effective treatment for the Acinetobacter, and I think that data makes it also much more likely this is strictly a colonizer and not an infecting organism. We could, of course, conveniently add Bactrim to treat possible Acinetobacter osteomyelitis, but I am afraid that he would readily get resistant to that, and if so, we would be left without much in the way of our antibiotic armamentarium in this patient, short of moving to a colistin combination therapy which could be very morbid. RECOMMENDATIONS: 1. The patient is cleared from an ID point of view to be discharged. 2. I would continue with Cipro 750 b.i.d. for five weeks from today, which would take us through about September 20. Will also start the patient on Flagyl today with the plan to continue that through September 20 as well. 3. The patient should followup in the Wound Care Center with Blake Diaz in three or four weeks. 4. The Wound Center will notify me when he arrives and I will see him there. 5. In discussing the situation with the patient, his plans to live at home are perhaps a little bit cumbersome as he has no real way to get back and forth from home to appointments or followup visits, and yet he rejects the idea of going to a halfway facility in favor of going home with his 8 hour a day caregiver. Because of this, I will not ask the patient to come to the ID clinic as there is really no way that he could accomplish that and instead I will plan to see him in the Wound Care Center in 3-4 weeks, when he meets with Blake Diaz, and at that time, I will be checking labs, including CRP, CBC, and CMP, as well as carefully examine his wounds. 6. ID will sign off at this time with our final plan, Cipro 750 p.o. b.i.d. and Flagyl 500 mg p.o. b.i.d. through September 20, with followup in three or four weeks at the Wound Center.
[2016-08-15 21:48] VITALS: BP 118/73; PULSE 50; RESP 16; O2SAT 98
[2016-08-16 01:39] VITALS: BP 121/79; PULSE 53; RESP 18; O2SAT 97
[2016-08-16] MEDS: Piperacillin-Tazo 3.375 Gm Inj 3.375 GM in Dextrose 5% Minibag Plus 50 ML IV SCH ×3 (01:50→17:29)
[2016-08-16 04:52] VITALS: BP 128/66; PULSE 55; RESP 18; O2SAT 100
--- NOTE | 2016-08-16 06:16 | NUR ---
Uneventful Night: pt had an uneventful night, no c/o pain, chest pain or SOB. Pt refusing stool softeners, pt denies having a BM for several days. Pt slept most of the night, pleasant and cooperative wit care.
[2016-08-16 07:16] LABS: EOSINOPHILS % (AUTO) 4.1 % (0-5); MONOCYTES % (AUTO) 8.2 % (4-12); Mean Corpuscular Hemoglobin 26.1 pg (27.0-35.0); Mean Corpuscular Volume 82.6 fL (81-100); Platelet Count 194 bil/L (150-400)
--- NOTE | 2016-08-16 07:51 | PCM.DIMED ---
Discharge Instructions Date of Service Aug 16, 2016 Dates of Hospitalization Aug 07, 2016 at 01:17 Discharge Diagnosis Discharge Diagnosis 1. Chronic severe ischial decubitus ulcers with osteomyelitis - stable 2. Sepsis, acute, with penetrating ischial ulcers bilaterally - resolved 3. Abdominal pain secondary to Constipation - improved 4. Hypovolemic hyponatremia, acute, present on admission, resolved 5. C5-C6 quadriplegia, chronic 6. BMI 39.2 Medication Instructions Please continue taking the antibiotics as instructed and finish them all. Diet No restrictions Activity No restrictions Call your provider Fever or Chills, Chest pain, Vomitting, Excessive diarrhea, Weakness (unilateral ) Patient Instructions Please follow up with the Wound Clinic as instructed. You will also follow up with Dr. Michael, infectious disease, at the wound clinic. Please follow up with your PCP within 1-2 weeks. Please continue turning every hour to relieve pressure on your ulcer. Please continue your wound care daily as instructed. Follow-up Provider: Saul Kendrick MD Follow-up with PCP in: 1 week Provider: [facility] Follow-up in: 2 weeks Jonatan Billingsley DO Aug 16, 2016 07:01
[2016-08-16] MEDS ORDERED: SACC250C PO (07:56)
[2016-08-16] MEDS ORDERED: METR500T PO (07:56)
[2016-08-16] MEDS ORDERED: CIPR-232 PO (07:56)
[2016-08-16] MEDS: Polyethylene Glycol (PEG) 17 Gm Powder PO SCH ×2 (08:30→20:30)
[2016-08-16] MEDS: Phenytoin 100 mg ER Capsule PO SCH ×2 (12:42→20:26)
--- NOTE | 2016-08-16 13:32 | PCM.PNMED ---
Subjective Date of Service Aug 16, 2016 Subjective Uneventful overnight. Mike is doing well this morning. Reports he is anxious to go home. Has no complaints this morning. Exam Vital Signs Vital Sign - Last Date Time Temp Pulse Resp B/P Pulse Ox O2 Delivery O2 Flow Rate FiO2 08/16/16 04:52 36.4 55 18 128/66 100 Room Air Intake and Output 08/15/16 08/15/16 08/16/16 Cumulative From/Thru 15:00 23:00 07:00 08/07/16 00:23 - 08/16/16 05:44 Intake Total 920 ml 200 ml 30104 ml Output Total 625 ml 450 ml 57678 ml Balance 295 ml -250 ml -3592 ml Intake Oral 920 ml 200 ml 88739 ml IV Total 50247 ml Output Urine Total 625 ml 450 ml 23850 ml Estimated Blood Loss 5 ml # Bowel Movements 1 0 4 Exam Constitutional: Middle-aged male who is morbidly obese, in NAD Head: Normocephalic atraumatic Chest: Clear to auscultation CV: Regular rate and rhythm Abdomen: Soft, NT, ND, normoactive BS. Extremities: Mildly atrophic and smooth skinned BLE : Suprapubic catheter in place, c/d/i Skin: Warm and dry Psych: Mood and affect are appropriate Neuro: Alert and oriented, Only flexion of right arm and full ROM of left arm. IVs and Medications Medications Reviewed: Medications were reviewed in detail Lab and Diagnostics Result Diagram: 08/16/1660408/16/16 06 X-Rays, CTs and MRIs CT PELVIS WITH CONTRAST IMPRESSION: 1. Large bilateral decubitus ulcerations inferior to the bilateral ischial tuberosities. Additionally, gas tracks from the left ulceration posteriorly along the gluteal crease and towards the left femoral greater trochanter. It is unclear whether this represents necrotizing fasciitis, or extension of the decubitus ulcer. No abscess or fluid collection amenable to drainage. 2. Sclerosis of the right inferior obturator ring suspicious for chronic osteomyelitis. If further characterization is warranted, contrast-enhanced MRI of the pelvis is recommended. These findings are concordant with the overnight interpretation. Dictated by: Paola Wang M.D. on 08/07/2016 at 7:10 Assessment & Plan Lizandro Sahu is a 56 year old man with history significant for C5-C6 Quadriplegia and bilateral Ischial decubitus ulcers under treatment for osteomyelitis and ongoing infection of bilateral ischial decubitus ulcers. Hospital Day #8 1. 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 -Stage IV decubitus ulcer on left buttock with extensive tunneling. Stage III ulcers on right buttock -Dressing per inpatient wound care. -General surgery consulted. Appreciate time and input. -Residential Leasing Agent also following due to increased nutritional needs -Was taken to OR for further debridement on 08/09. Further management per Gen Surgery and Wound care. -Wound cultures growing Pseudomonas, Bacteroides and E. Coli -Antibiotic management per ID. Currently on Zosyn, day 9. Plan was to be discharged with PO Cipro or Levaquin for 6 weeks and 4 weeks of Flagyl per ID recommendation when stable, but new antibiotic sensitivity will require different regimen likely. -Bone cultures resulting in acinetobacter in addition to bacteriodes and E. Coli. -Improving 2. Sepsis, acute, with penetrating ischial ulcers bilaterally, present on admission, resolved. - Discussed criteria for sepsis with elevated white count of 18.2, febrile, tachycardic to 92, and soft tissue infection as source - Placed on IV vancomycin per pharmacy, and IV Zosyn in the ED. Was also copiously hydrated with IV NS. - CRP has been mildly improving. 3. Abdominal pain, acute, present on admission. -Mild left sided abd pain likely due to constipation. Patient has been refusing bowel regimen in the hospital and requesting manual dis-impaction instead. -We have been continuing to educate patient on importance of bowel regimen. -Improved after enema 4. Hypovolemic hyponatremia, acute, present on admission, resolved - Resolved with IVF 5. C5-C6 quadriplegia, chronic, present on admission - Patient reports his Quadriplegia has been progressing and he has now lost motor function of his right triceps. - Continue supportive care - Continue home med: Phenytoin, may need a Phenytoin level. - Will require Clinitron bed secondary to quadriplegia and decubitus ulcers - Patient has chronic constipation and would like an aggressive bowel regimen. - Suprapubic Rosario in place, will continue to monitor and replace as needed. 6. BMI 39.2 7. Bacteremia -Appears to be contaminant Dispo: Awaiting CLinitron bed installation at home for maximal treatment of his decubitus ulcers. Likely discharge tomorrow. Pain Evaluation: Adequate Pain Control VTE Prophylaxis: Sub-Q Heparin (Unfractionated), SCDs (we will hold on subcutaneous anticoagulants given possibility of surgical debridement in the a.m.) Resuscitation Status: CPR: Attempt Resuscitation Attending Statement The patient was seen and examined together with Dr. Billingsley on 08/16/2016 and I agree with the history, exam and plan as outlined in the note above. Jonatan Billingsley DO Aug 16, 2016 13:32 Daniel Richey MD Aug 17, 2016 09:02
--- NOTE | 2016-08-16 13:38 | NUR ---
Social Work-readiness for discharge: Data:EMR Reviewed. Pt is on day 9 of hospitalization for bilateral ulceration per H&P. SW received a call from pt's father Marc who states that Clinitron bed was delivered today, but the electrical panel is not working and that a wiring technician from [facility] to fix the bed. Wound care to train caregivers today. Wound care feels like pt needs the bed to return home per RN. All SNF options have been explored and no SNF will accept pt. CASS called pt's father back and left a message requesting that he let SW know when the bed is fixed. UR RN updated and aware. Pt to return home with [facility] and caregivers. F2F in folder. SW will continue to follow. Assessment:Pt to benefit from Clinitron bed and HH. Plan:Pt to discharge home once Clinitron bed is working, pt's father to update SW on this information. [facility] following and pt's caregivers being taught today to assist with wound care as well. F2F in folder. SW will continue to follow. CHATO Ziegler
[2016-08-16 14:47] VITALS: BP 114/71; PULSE 54; RESP 16; O2SAT 98
[2016-08-16] MEDS ORDERED: 0.9% Sodium Chloride 250 ML ONE (16:12)
--- NOTE | 2016-08-16 16:24 | NUR ---
Clinitron Bed and wounds Clinitron bed arrived at home, electrical not working. [place] of state repair man to fly in for repairs. D/C approximated in 2 days. Integration Software Developer packing pressure ulcers daily. Caregivers present today and received instruction on wound care once pt is able to be transported home.
[2016-08-16] MEDS: Heparin 5,000 Unit/mL Inj SUBQ SCH (16:30)
--- NOTE | 2016-08-16 17:57 | NUR ---
Wound Care Patient seen at bedside for wound care and dressing changes, caregivers present and instructed in dressing changes and wound care. Wounds are stable, draining serosanguinous drainage minimally at this point. No odor is detected and there is no erythema or streaking noted. Left ischial wound is 13 cm L x 10 cm W x 8 cms D, bone is still present in the wound bed. This wound is copiously irrigated with saline with 60ml syringe, repacked with kerlix gauze covered with abd pads. Right ischial wound is 5 cm L x 4 cms W and a depth of 6 cms,bone is still present in the wound bed. This wound is copiously irrigated with saline with 60ml syringe, repacked with kerlix gauze covered with abd pads. Will recheck on patient in am. Patient tolerated procedure well.
[2016-08-16 20:28] VITALS: BP 145/78; PULSE 54; RESP 16; O2SAT 98
--- NOTE | 2016-08-16 22:40 | NUR ---
Meds Patient reports, "I only take 3 pills at night-I don't want the rest". Medication teaching started-, Patient replied, "I don't dare, just give them all to me". Patient took all medications except miralax which was in orange juice.
[2016-08-17] MEDS: Heparin 5,000 Unit/mL Inj SUBQ SCH ×2 (00:45→09:14)
[2016-08-17] MEDS: Piperacillin-Tazo 3.375 Gm Inj 3.375 GM in Dextrose 5% Minibag Plus 50 ML IV SCH ×2 (01:01→09:15)
[2016-08-17 06:05] VITALS: BP 105/69; PULSE 49; RESP 18; O2SAT 98
[2016-08-17] MEDS: Polyethylene Glycol (PEG) 17 Gm Powder PO SCH (08:30)
--- NOTE | 2016-08-17 13:29 | NUR ---
Social Work: Discharge Data: Pt is on day 10 of hospitalization. EMR reviewed. D/C orders were put in on 08/16/16. MONUMENT MASON spoke with pt's father who states the clinitron bed has been fixed and that they can take pt home this afternoon, around 4pm. MONUMENT MASON notified [facility] F2F ready for them to picker feeder. Pt will d/c home via wheelchair van with an air cushion on the seat. MONUMENT MASON spoke with pt, RN, and pt's father who state they spoke with MD about options and pt and family have chosen to go by wheelchair van so that pt does not have to lay on a hard surface. No further d/c planning needs at this time. MONUMENT MASON will continue to follow if needs arise. Assessment: Pt with caregiving at baseline. Paraplegic. Plan: Pt will d/c home via wheelchair van with an air cushion on the seat with [facility] RN/PT/OT. No further d/c planning needs at this time. MONUMENT MASON will continue to follow if needs arise. CHATO Palma
[2016-08-17 14:19] VITALS: BP 103/64; PULSE 55; RESP 18; O2SAT 98
--- NOTE | 2016-08-17 15:13 | NUR ---
Wound Care Patient seen at bedside with nursing for wound care which included nonexcisional debridement of necrotic granulation tissue in the left ischial pressure injury with a #10 blade; wound measurements are unchanged with debridement. Right ischial pressure injury does not require debridement today. Wounds were copiously irrigated with saline then packed with saline moist kerlix gauze and covered with abd pads. Patient is to discharge home with [facility] for wound care and weekly labs. Follow up appointment has been scheduled with Dr Murry at the wound Center on 09/07/16.
--- NOTE | 2016-08-17 15:40 | NUR ---
Discharge Patient departed unit in own wheelchair accompanied by staff and father. Patient alert and oriented at time of discharge. Dressing change by wound care prior to discharge. Patient reporting "my normal pain", refusing pain medications. Patient on Clinitron bed. O2 98% on room air. Reporting "upset stomach after taking all those meds this morning". Refused lunch and noon Dilantin. Patient refusing to follow bowel regimen preferring digital stimulation. Teaching attempted, patient not receptive. Discharge instructions/medications reviewed with patient prior to discharge. All questions addressed. Patient belongings, discharge instructions and prescriptions in hand.
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
== END 2016-08-17 15:46 | disposition home health service (06) | DRG 853 ==
LOC: EDUNIT# 22:20 → SED 22:20 → EDBD 22:20 → MPC 08-07 01:17
PROVIDERS: ADMIT Specialist; ATTEND Specialist
PROC: 0JB70ZZ Excision of Back Subcutaneous Tissue and Fascia, Open Approach (ICD-10-PCS; 2016-08-09)
PROC: 0QC30ZZ Extirpation of Matter from Left Pelvic Bone, Open Approach (ICD-10-PCS; principal; 2016-08-09 07:30)
PROC: 0JB70ZZ Excision of Back Subcutaneous Tissue and Fascia, Open Approach (ICD-10-PCS; 2016-08-12)
DX: A41.9 Sepsis, unspecified organism (principal); G82.54 Quadriplegia, C5-C7 incomplete; L89.324 Pressure ulcer of left buttock, stage 4; L89.314 Pressure ulcer of right buttock, stage 4; E87.1 Hypo-osmolality and hyponatremia; N39.0 Urinary tract infection, site not specified; M86.652 Other chronic osteomyelitis, left thigh; E66.01 Morbid (severe) obesity due to excess calories; Z68.39 Body mass index [BMI] 39.0-39.9, adult; G40.909 Epilepsy, unspecified, not intractable, without status epilepticus; K59.00 Constipation, unspecified

== ENCOUNTER 2016-10-16 10:42 | Inpatient (IN) | payer MEDICARE, MEDICAID ==
[2016-10-16] VITALS (9 sets, daily range): BP systolic 121–167; BP diastolic 62–85; PULSE 40–57; RESP 15–22; O2SAT 88–97
[~2016-10-16] VITALS: Ht 170.2 cm; Wt 113.0 kg
[~2016-10-16 10:42] MED LIST changes: -ASPI325T32 PO; +CIPR-232 PO; +METR500T PO; +SACC250C PO; -baclofen pump
--- NOTE | 2016-10-16 10:48 | ED.REPORT ---
HPI-Syncope Date of Service October 16, 2016 ED Provider: Dr. Starr Pt is a 56 year old male with a hx of quadriplegia, confusion, and recent diagnosis of pneumonia presenting to the ED via EMS after a syncopal episode this morning. Associated symptoms include SOB and an intermittent neck cramp onset about 1 month ago since he went to the wound care center. Denies fever, diaphoresis or nausea prior to his syncopal episode. He reports that today's syncopal episode was following a neck muscle exercise with his caregiver. The pt 's family reported to medics that he is more confused than baseline. Pt takes Dilantin in the mornings. Pt started Azithromycin for pneumonia 2 days ago, which he reports has improved his SOB. Nursing Notes Stated Complaint: SYNCOPE Chief Complaint: Syncope Nursing Notes Reviewed: Yes Allergies: Coded Allergies: No Known Drug Allergies (Verified Allergy, Unknown, 10/16/16) ONLY ALLERGIC TO DETERGENT PERFUME; NO DRUG ALLERGIES PER PATEINT Uncoded Allergies: PERFUME IN DETERGENT (Adverse Reaction, Severe, RED RASH, 07/27/12) Scheduled Ascorbic Acid (Vitamin C) 500 Mg Capsule.er 500 MG PO DAILY Multivitamin (Multi Vitamin Daily) 1 Each Tablet 1 EACH PO DAILY Phenytoin Sodium Extended (Phenytoin Sodium Extended) 100 Mg Capsule 200 MG PO noon Phenytoin Sodium Extended (Phenytoin Sodium Extended) 100 Mg Capsule 300 MG PO HS Miscellaneous Medications Aspirin (Aspirin) 325 Mg Tablet 325 MG PO Baclofen (Baclofen) 10 Mg Tablet General Time Seen by Provider: 11:14 Chief Complaint Became unresponsive Hx Obtained From: Patient, EMS Arrived By: Ambulance Onset Occurred: Just prior to arrival Symptom Duration: Since onset Location: : Neck Quality: Cramping Severity: Current: Mild Severity: Maximum: Moderate Recent Healthcare: No recent hospitalization, Recent doctor visit Similar Sx Previous: No Past Medical History Past Medical History Incomplete C7 quadriplegia Mild sinusitis Seizure disorder Morbid obesity Recurrent bladder infections stage IV bilateral ischial decubitus ulcers Past Surgical History Multiple buttock decubitus ulcer debridement Baclofen pump Debridement of right ischial pressure sore with right gluteal myocutaneous flap closure. Smoking History Never Smoker Social History Alcohol Use: Denies alcohol use Drug Use: Denies drug use Other Social History: Good social support Ambulatory Status Wheelchair Review of Systems Constitutional: Denies: Fever Respiratory: Reports: Shortness of breath GI: Denies: Nausea Musculoskeletal: Reports: Neck pain Skin: Denies Diaphoresis Neurologic: Reports: Change LOC Complete sys rev & neg: except as marked. Physical Exam Initial Vital Signs Vital Signs (First) Date Time Temp Pulse Resp B/P Pulse Ox O2 Delivery O2 Flow Rate FiO2 10/16/16 10:50 36.3 48 18 141/65 97 Room Air Initial VS: Reviewed Head / Eyes: Atraumatic, Normocephalic, PERRL ENT: Conjunctiva normal Neck: Supple Abdomen / GI: No distention Upper Extremities: Vascular intact, Neuro intact, No swelling, No tenderness Skin: Warm, Dry, No cyanosis Psychiatric: Mood/affect normal, Behavior normal, Normal thought content General/Constitutional: Awake, Alert, No acute distress Respiratory / Chest: No respiratory distress Rales / Rhonchi: Positive: Rhonchi diffuse Scattered wheezes. Cardiovascular: Heart rate NL, Regular rhythm, Heart sounds NL, No murmurs, Cap refill not delayed, Peripheral circulation NL Interpretation & Diagnostics Lab Results Interpretation Result Diagram: 10/16/16 1152 10/16/16 1152 Test 10/16/16 11:52 10/16/16 12:43 White Blood Count 8.7th/mm3 (3.8-10.1) Red Blood Count 4.38mil/mm3 (4.40-5.80) Hemoglobin 12.3g/dL (13.8-17.2) Hematocrit 37.7% (41.0-50.0) Mean Corpuscular Volume 86.1fL (81-100) Mean Corpuscular Hemoglobin 28.1pg (27.0-35.0) Mean Corpuscular Hemoglobin Concent 32.6% (32.0-37.0) Red Cell Distribution Width 14.7% (12.3-15.4) Platelet Count 169bil/L (150-400) Neutrophils (%) (Auto) 78.4% (40-74) Lymphocytes (%) (Auto) 13.8% (14-46) Monocytes (%) (Auto) 4.8% (4-12) Eosinophils (%) (Auto) 2.6% (0-5) Basophils (%) (Auto) 0.2% (0-3) Sodium Level 137mEq/L (134-144) Potassium Level 4.1mEq/L (3.5-5.2) Chloride Level 101mEq/L (97-108) Carbon Dioxide Level 25mmol/L (18-29) Blood Urea Nitrogen 9mg/dL (6-24) Creatinine < 0.30mg/dL (0.76-1.27) Estimat Glomerular Filtration Rate 330mL/min (>59) Glucose Level 143mg/dL (60-99) Calcium Level 8.4mg/dL (8.5-10.1) Magnesium Level 1.9mg/dL (1.6-2.6) Total Bilirubin 0.3mg/dL (0.0-1.2) Aspartate Amino Transf (AST/SGOT) 11U/L (0-50) Alanine Aminotransferase (ALT/SGPT) 10U/L (0-44) Alkaline Phosphatase 81U/L (25-150) Total Protein 7.1g/dL (6.4-8.4) Albumin 3.3g/dL (3.4-5.0) Hold Reinoso Top Tube Received (Received) Urine Color Yellow (YELLOW) Urine Appearance Hazy (CLEAR,HAZY) Urine pH 6.5 (5.0-8.0) Urine Specific [place] 1.010 (1.003-1.035) Urine Protein Negativemg/dL (NEG,TRACE) Urine Glucose (UA) Negativemg/dL (NEGATIVE) Urine Ketones Negativemg/dL (NEGATIVE) Urine Occult Blood Negative (NEGATIVE) Urine Nitrite Positive (NEGATIVE) Urine Bilirubin Negative (NEGATIVE) Urine Urobilinogen 1.0mg/dL (NORMAL) Urine Leukocyte Esterase Small (NEGATIVE) Urine RBC 0-2/hpf (0-2) Urine WBC 0-5/hpf (0-5) Urine Epithelial Cells None/hpf (NONE-MOD) Urine Crystals None seen (NONE SEEN) Urine Bacteria Many/hpf (NONE-FEW) Urine Hyaline Casts None/lpf (NONE) Urine Granular Casts None seen (NONE SEEN) Urine Waxy Casts None seen (NONE SEEN) Urine Red Blood Cell Casts None seen (NONE SEEN) Urine White Blood Cell Casts None seen (NONE SEEN) Urine Mucus None seen (None Seen) Urine Trichomonas None seen (NONE SEEN) Urine Yeast None (NONE SEEN) Urinalysis Comment None Urine Culture Reflexed Indicated ECG Interpretation ECG Interpretation: Sinus bradycardia. Rate is decreased compared with 08/06. Time: 11:34 Interpreted by: ED physician Abnormal Rate: 30 (37) X-Ray Chest Interpretation Chest Xray Interpretation: IMPRESSION: Left basilar atelectasis versus pneumonia. Please correlate with clinical and laboratory data. Dictated by: Patti Arreola MD, PhD on 10/16/2016 at 11:48 View: Portable, 1 view Interpretation / Wet Read by: Interpret - Radiologist Re-Eval/Medical Decision Med Decision/Clinical Course Report of syncope while supine, bradycardic in ED. Not on meds thought likely to cause this. Being treated for pnuemonia, states he is better after 2 days of azithro, have cultured and started rocephin. Will admit on obs status, has been stable and mentating throughout ED stay in spite of bradycardia. Re-Evaluation/Progress : Time of Eval: 12:10 Re-Evaluation/Progress Note: The pt's family reports that yesterday, the pt was acting confused, but the pt is adamant that he was not. Pt reports that today during his daily exercises he thinks he "blacked out" because every time his caregiver lifted his leg, his neck hurt. Discussed plan for admission. Pt understands and agrees. Consultation : Referral / Consult Name: Mlies Serrato MD Consulted With: Hospitalist Call Returned at: 15:13 Sales Leader: Will see patient, Agrees with plan, Accepts admit Counseled Regarding: Diagnosis, Lab results, Need for follow-up, When/why to return to ED Discharge & Departure Impression: Primary Impression: Syncope Syncope type: unspecified Qualified Code: R55 - Syncope and collapse Additional Impressions: Bradycardia Pneumonia Pneumonia type: due to unspecified organism Laterality: left Disposition: ADMITTED TO HOSPITAL Discharge Condition All VS Reviewed: Yes Condition: Improved Referrals: Saul Kendrick MD (PCP) Marcusibdevika Attestation Portions of this note were transcribed by Shirin Pedroza. I, Dr. Starr personally performed the history, physical exam and medical decision-making; I reviewed and confirmed the accuracy of the information in the transcribed note. Signed by : Jackelyn Davis, 10/16/16 at 1350. copies to: Saul Kendrick MD, Donald L MD October 16, 2016 10:48 SHIRIN PEDROZA October 16, 2016 11:22
--- NOTE | 2016-10-16 11:50 | DRSVH ---
PROCEDURE: X-RAY CHEST ONE VIEW, PORTABLE ([id number]) INDICATIONS: dyspnea/cough TECHNIQUE: One view of the chest was acquired. COMPARISON: [facility], CR, XR CHEST 1VW (PORTABLE), 08/08/2015, 13:14. Former[facility], CR, XR CHEST 1VW (PORTABLE), 08/06/2016, 23:38. FINDINGS: Surgical changes and devices: Cervical spine fixation hardware Lungs and pleura: No pleural effusions or pneumothorax. Increased opacification noted in the left stevie ng base which could represent atelectasis versus pneumonia. Mediastinum: Mediastinal contours appear normal. Heart size is normal. Bones and chest wall: No suspicious bony lesions. Overlying soft tissues appear unremarkable. IMPRESSION: Left basilar atelectasis versus pneumonia. Please correlate with clinical and laborator y data. Dictated by: Patti Arreola MD, PhD on 10/16/2016 at 11:48 Approved by: Patti Arreola MD, PhD on 10/16/2016 at 11:49
[2016-10-16 12:24] LABS: BASOPHILS % (AUTO) 0.2 % (0-3); EOSINOPHILS % (AUTO) 2.6 % (0-5); MONOCYTES % (AUTO) 4.8 % (4-12); Mean Corpuscular Hemoglobin 28.1 pg (27.0-35.0); Mean Corpuscular Volume 86.1 fL (81-100); NEUTROPHILS % (AUTO) 78.4 % (40-74); Platelet Count 169 bil/L (150-400)
[2016-10-16 12:45] LABS: Magnesium 1.9 mg/dL (1.6-2.6)
[2016-10-16 13:11] LABS: APPEARANCE,URINE HAZY (CLEAR,HAZY); COLOR,URINE YELLOW (YELLOW); OCCULT BLOOD,URINE NEGATIVE (NEGATIVE); PH,URINE 6.5 (5.0-8.0)
[2016-10-16] MEDS ORDERED: cefTRIAXone Inj 2,000 MG in Dextrose 5% Minibag Plus 50 ML IV ONE (13:20)
[2016-10-16] MEDS ORDERED: Alum-Mag Hydrox-Simeth 30 mL Suspension PO PRN ×2 (15:20→15:45)
[2016-10-16] MEDS ORDERED: Ondansetron 2 mg/mL 2 mL Inj IVPUSH PRN ×2 (15:20→15:45)
[2016-10-16] MEDS ORDERED: Polyethylene Glycol (PEG) 17 Gm Powder PO PRN (15:45)
[2016-10-16] MEDS ORDERED: BACL10TA PO (15:46)
[2016-10-16] MEDS ORDERED: ASPI-351 (15:46)
[2016-10-16] MEDS ORDERED: ASPI325T32 PO (15:47)
--- NOTE | 2016-10-16 17:06 | DRSVH ---
PROCEDURE: CT BRAIN WITHOUT CONTRAST ([id number]) INDICATIONS: Syncope TECHNIQUE: Noncontrast 4.5 mm thick angled axial sections acquired from the foramen magnum to the vertex, with c oronal reformats. COMPARISON: None. FINDINGS: Image quality: Excellent. CSF spaces: Basal cisterns are patent. No extra-axial fluid collections. Ventricles are normal in size and shape. Brain: No midline shift. No intracranial masses or hemorrhage. Chronic left occipital infarct is no jennifer. Skull and face: Calvarium and visualized facial bones are intact, without suspicious lesions. Sinuses: Visualized sinuses and mastoids are clear. IMPRESSION: 1. No acute intracranial disease process. 2. Old left occipital lobe infarct. Dictated by: Patti Arreola MD, PhD on 10/16/2016 at 17:02 Approved by: Patti Arreola MD, PhD on 10/16/2016 at 17:04
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
[2016-10-16] MEDS: Phenytoin 100 mg ER Capsule PO SCH (21:04)
[2016-10-17] VITALS (7 sets, daily range): BP systolic 114–152; BP diastolic 54–77; PULSE 44–58; RESP 22–23; O2SAT 92–95
[2016-10-17 06:47] LABS: BASOPHILS % (AUTO) 0.2 % (0-3); EOSINOPHILS % (AUTO) 1.6 % (0-5); MONOCYTES % (AUTO) 8.2 % (4-12); Mean Corpuscular Hemoglobin 27.9 pg (27.0-35.0); Platelet Count 160 bil/L (150-400)
[2016-10-17 07:07] LABS: Magnesium 1.9 mg/dL (1.6-2.6)
--- NOTE | 2016-10-17 08:12 | DRSVH ---
PROCEDURE: X-RAY CHEST ONE VIEW, PORTABLE ([id number]) INDICATIONS: Follow up for Pneumonia TECHNIQUE: One view of the chest was acquired. COMPARISON: [facility], CR, CHEST 2VW, 06/10/2007, 3:26. [facility], CR, XR CHEST 1VW (PORTABLE), 08/06/2016, 23:38. FINDINGS: Surgical changes and devices: None. Lungs and pleura: No pleural effusions or pneumothorax. Persistent but slightly improved, with bett er visualization of descending aorta, airspace opacity in the left lung base. Rounded midline gas-fi lled opacity likely related to hiatal hernia.. Mediastinum: Mediastinal contours appear normal. Heart size is normal. Bones and chest wall: No suspicious bony lesions. Overlying soft tissues appear unremarkable. IMPRESSION: Left basilar atelectasis versus aspiration or pneumonia slightly improved in radiographic appearance Dictated by: Abdulaziz Hastings RRA Interpreted: Salas Silveira MD on 10/17/2016 at 8:09 Transcribed by: RAE on 10/17/2016 at 8:11 Approved by: Salas Silveira M.D. on 10/17/2016 at 9:15
[2016-10-17] MEDS: Ascorbic Acid 500 mg Tablet PO SCH (08:40)
[2016-10-17] MEDS: Azithromycin Inj 500 MG in Dextrose 5% w/Vial Mate 250 ML IV SCH (08:40)
--- NOTE | 2016-10-17 09:04 | DRSVH ---
PROCEDURE: US BILATERAL DUPLEX DOPPLER IMAGING OF THE CAROTIDS ([id number]) INDICATIONS: Syncope TECHNIQUE: Color and pulse Doppler interrogation was performed of both carotid systems, with image documentation and velocity measurements. COMPARISON: None. FINDINGS: All stenosis calculations are based on NASCET criteria. Right side: Brachial blood pressure: n.a. Common Carotid Artery(Distal) PSV: 72.30 cm/s Internal Carotid Artery PSV- Proximal: 61.70 cm/s Mid-lon.20 cm/s Distal: 60.70 cm/s EDV - Proximal: 8.70 cm/s Mid-lon.90 cm/s Distal: 13.40 cm/s External Carotid Artery(Proximal) PSV: 90.80 cm/s ICA/CCA PSV ratio: 0.86 Pickard scale imaging description: No significant plaques Percent internal carotid artery stenosis: No significant stenosis. Vertebral artery: Flow direction is antegrade. Left side: Brachial blood pressure: 126/69 mm Hg. Common Carotid Artery(Distal) PSV: 60.20 cm/s Internal Carotid Artery PSV - Proximal: 57.80 cm/s Mid-lon.70 cm/s Distal: n.a. EDV - Proximal: 12.10 cm/s Mid-lon.90 cm/s Distal: n.a. External Carotid Artery(Proximal) PSV: 92 cm/s ICA/CCA PSV ratio: 1.19 Pickard scale imaging description: High bifurcation. Unable to examine distal ICA. Percent internal carotid artery stenosis: No significant stenosis. Vertebral artery: Flow direction is antegrade. IMPRESSION: 1. Limited examination due to the patient's body habitus, limited mobility (turning neck) and high ca rotid bifurcations. If clinically indicated, CT or MR angiogram may be helpful. 2. No significant carotid stenosis identified. 3. Antegrade vertebral flows bilaterally. Dictated by: David Simeon M.D. on 10/17/2016 at 8:58 Approved by: David Simeon M.D. on 10/17/2016 at 9:03
--- NOTE | 2016-10-17 11:49 | DRSVH ---
[facility] [address] [place] [address] Echocardiogram Report Name: LOBITO BILLINGSLEY FStudy Date: 10/17/2016 Height: 67 in Hospital Exam Location: [facility] Weight: 249 lb Gender: Male BSA: 2.2 m2 : 1960 Age: 56 yrs BP: 126/69 mmHg Reason For Study: Bradycardia Ordering Physician: Performed By: Zenaida Hickey Interpretation Summary Patient is on [facility] Care Team Probabale mild to moderate LVH The ejection fraction is estimated to be 60-65%. There are no obvious focal wall motion abnormalities noted but poor endocardial definition reduces the sensitivity for the detection of such. The aortic root is mildly dilated. There is no significant valvular heart disease. Procedure: A two-dimensional transthoracic echocardiogram with color flow and Doppler was performed. There is no prior echocardiogram noted for this patient. The study quality was technically difficult. The patient was in sinus bradycardia with heart rates between 43-55 bpm during the exam. Left Ventricle: The left ventricle is normal in size. Probabale mild to moderate LVH. The ejection fraction is estimated to be 60-65%. There are no obvious focal wall motion abnormalities noted but poor endocardial definition reduces the sensitivity for the detection of such. Assessment of diastolic parameters suggests a pseudonormalization pattern, consistent with elevated filling pressures. Right Ventricle: The right ventricle grossly appears normal in size with probable normal systolic function. Atria: The left atrium is mildly dilated. Right atrium not well visualized. There is no Doppler evidence for an interatrial shunt. Mitral Valve: The mitral valve is normal in structure and function. There is a flat closure plane of the the mitral valve leaflets. There is trace mitral regurgitation. Aortic Valve: The aortic valve is normal in structure and function. No aortic regurgitation is present. Tricuspid Valve: The tricuspid valve is not well visualized, but is grossly normal. Pulmonary artery pressures cannot be estimated because of the lack of a measurable TR jet velocity. Pulmonic Valve: The pulmonic valve leaflets are thin and pliable; valve motion is normal. There is mild pulmonic regurgitation. Great Vessels: The aortic root is mildly dilated. The ascending aorta is mild-moderately enlarged. The IVC is dilated (diameter is greater than 2.1 cm) yet it collapses greater than 50% with a sniff. This suggests a right atrial pressure of 8 mm Hg. Pericardium/ Pleura There is no pericardial effusion. MMode/2D Measurements & Calculations LVIDd: 5.4 cm LA dimension LVOT diam LV phillips. diameter/BSA LVIDs: 3.6 cm (cm/m^2): 2.4 FS: 33.3 % LA A2 area AoV Opening EPSS: 0.31 cm IVSd: 1.6 cm Ao root diam LVPWd: 1.6 cm LA A4 area Aortic Jxn LA length (vol) asc Aorta LA vol: 68.7 ml Diam: 4.1 cm LA vol index IVC diam: 2.5 cm LV sys. diameter/BSA (cm/m^2): 1.6 Doppler Measurements & Calculations Ao V2 max MV E max duke MV E/A: 1.1 PA V2 max : 135.1 cm/sec : 101.0 cm/sec Med Peak E' Duke : 104.9 cm/sec Ao max PG MV A max duke PA mean PG : 7.3 mmHg : 92.3 cm/sec E/E' med: 15.2 Ao mean PG MV P1/2t: 49.7 msec Lat Peak E' Duke PA Accel Time : 0.18 sec LVOT Max Duke E/E' lat: 10.7 : 79.7 cm/sec E/e' average KATIA(I,D): 3.0 cm sev ratio MV dec time MV P1/2t max duke Ao V2 mean LV V1 max PG : 0.17 sec : 81.4 cm/sec MVA(P1/2t): 4.4 cm2 Ao V2 VTI: 32.5 cm LV V1 VTI KATIA(Cristhian,D): 2.7 cm2 : 20.8 cm PA V2 mean KATIA indexed to BSA : 66.0 cm/sec (cm^2/m^2): 1.3 Electronically signed by: Rafi Hanson on Reading Physician:10/17/2016 11:48 AM
[2016-10-17] MEDS: Phenytoin 100 mg ER Capsule PO SCH ×2 (12:37→21:25)
[2016-10-17] MEDS: cefTRIAXone Inj 2,000 MG in Dextrose 5% Minibag Plus 50 ML IV SCH (13:58)
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
--- NOTE | 2016-10-17 21:44 | PROCED ---
[address] [address] EEG PATIENT: LOBITO BILLINGSLEY : 1960 MR#: [id number] ADMIT: 10/16/2016 JOB ID: [id number] DATE OF SERVICE: 10/17/2016 REQUESTING PHYSICIAN: Chriss Meier MD. CLINICAL HISTORY: The patient is a 56-year-old gentleman who is a quadriplegic with episodes of syncope. Currently not on antiepileptic medication. DESCRIPTION: While awake and with eyes closed, there are 7 hertz rhythmic and symmetric waveforms seen over the occipital head region which attenuate with eye opening. The patient enters sleep, at which time there is slowing of the background rhythm and the appropriate sleep architecture noted in both hemispheres. This EEG reading is complicated by frequent coughing spells, which at times obscures the background. However, there are no focal lateralizing or epileptiform abnormalities seen throughout the recording. Activation: Photic activation does not reveal any photic driving and no photoparoxysmal discharges. Hyperventilation was not performed due to patient's lack of cooperation. EKG/rhythm strip: Bradycardic regular rhythm. IMPRESSION: Abnormal electroencephalogram due to slowing, patient awake and asleep. No epileptiform abnormalities seen throughout the recording. Bradycardic rhythm noted. Clinical correlation advised.
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
[2016-10-18] VITALS (8 sets, daily range): BP systolic 111–168; BP diastolic 63–82; PULSE 45–56; RESP 19–23; O2SAT 94–97
[2016-10-18 06:27] LABS: BASOPHILS % (AUTO) 0.4 % (0-3); EOSINOPHILS % (AUTO) 2.7 % (0-5); MONOCYTES % (AUTO) 8.9 % (4-12); Mean Corpuscular Hemoglobin 27.5 pg (27.0-35.0); Mean Corpuscular Volume 86.7 fL (81-100); NEUTROPHILS % (AUTO) 73.9 % (40-74); Platelet Count 184 bil/L (150-400)
[2016-10-18 06:58] LABS: Magnesium 1.9 mg/dL (1.6-2.6)
[2016-10-18] MEDS: Ascorbic Acid 500 mg Tablet PO SCH (08:30)
[2016-10-18] MEDS: Azithromycin Inj 500 MG in Dextrose 5% w/Vial Mate 250 ML IV SCH (09:02)
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
[2016-10-18] MEDS: Phenytoin 100 mg ER Capsule PO SCH ×2 (12:20→21:12)
[2016-10-18] MEDS: cefTRIAXone Inj 2,000 MG in Dextrose 5% Minibag Plus 50 ML IV SCH (12:20)
[2016-10-18] MEDS: Ketorolac 15 mg/mL Inj IVPUSH PRN (15:58)
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
[2016-10-19 01:11] VITALS: BP 142/63; PULSE 47; RESP 18; O2SAT 98
[2016-10-19 05:40] VITALS: BP 150/100; PULSE 48; RESP 18; O2SAT 94
[2016-10-19 08:19] VITALS: O2SAT 95
[2016-10-19 08:24] LABS: BASOPHILS % (AUTO) 0.4 % (0-3); EOSINOPHILS % (AUTO) 3.7 % (0-5); MONOCYTES % (AUTO) 7.1 % (4-12); Mean Corpuscular Hemoglobin 28.1 pg (27.0-35.0); Mean Corpuscular Volume 85.5 fL (81-100); NEUTROPHILS % (AUTO) 73.2 % (40-74); Platelet Count 182 bil/L (150-400)
[2016-10-19] MEDS: Azithromycin Inj 500 MG in Dextrose 5% w/Vial Mate 250 ML IV SCH (08:45)
[2016-10-19 09:03] LABS: Magnesium 1.8 mg/dL (1.6-2.6)
--- NOTE | 2016-10-19 09:35 | DRSVH ---
PROCEDURE: X-RAY CHEST ONE VIEW, PORTABLE ([id number]) INDICATIONS: Follow up for pulmonary infiltrate TECHNIQUE: One view of the chest was acquired. COMPARISON: [facility], CT, CT ABD PELVIS W CON, 08/08/2015, 15:17. [facility], CR, XR CHEST 1VW (PORTABLE), 10/16/2016, 11:27. [facility], CR, XR CHEST 1VW (PORTABL E), 10/17/2016, 6:24. FINDINGS: Surgical changes and devices: None. Lungs and pleura: No pleural effusions or pneumothorax. Persistent retrocardiac air space opacity n ot significantly changed. Mediastinum: Mediastinal contours appear normal. Heart size is normal. Bones and chest wall: No suspicious bony lesions. Overlying soft tissues appear unremarkable. Hype rtrophic changes again seen at the T11 level likely related to old trauma and degenerative change. IMPRESSION: Persistent left basilar atelectasis versus pneumonia. Dictated by: Abdulaziz COLÓN Interpreted: Diana Burgess MD on 10/19/2016 at 9:30 Transcribed by: PUMA on 10/19/2016 at 9:35 Approved by: Diana Burgess M.D. on 10/19/2016 at 16:01
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
--- NOTE | 2016-10-19 10:01 | PROG NOTE ---
[address] [address] PROGRESS NOTE PATIENT: LOBITO BILLINGSLEY : 1960 MR#: [id number] ADMIT: 10/16/2016 JOB ID: [id number] DATE: 10/19/2016 INFECTIOUS DISEASE FOLLOWUP NOTE: REASON FOR FOLLOWUP: Potential upper respiratory infection in a quadriplegic gentleman. INTERVAL HISTORY: This is a patient we have been following for possible aspiration pneumonia or bronchitis or tracheobronchitis. Recall that he is a quadriplegic with very severe decubitus wounds, for whom we have treated for osteomyelitis in the recent past. We evaluated these wounds quite comprehensively with Blake Holden of wound care two days ago and found that his wounds were dramatically improved following using a Clinitron bed at home, appropriate debridement and a long course of antibiotics. Attention during this hospital stay has been directed to his neck pain, and it is revealed that he has a T1 compression fracture which is not displaced and which is going to be managed conservatively. Also, there have been concerns about increasing shortness of breath. At least part of this increasing shortness of breath is because that due to his neck pain the patient insists on being completely flat without any [id number] movement whatsoever and even eating his meals while completely supine. This has contributed to his major respiratory complaint, which is just thick upper airway secretions, and some increased work of breathing. He does not have a deep cough per se and no associated fevers, chills, or sweats. PHYSICAL EXAMINATION: Reveals a gentleman who is awake and alert. He is complaining that he still has a lot of upper airway type secretions and it is a little harder to breathe than normal. He also has a great deal of pain at the base of his neck. No GI symptomatology is noted. No skin rash or other issue. Temperatures have been consistently afebrile and usually hypothermic. Right now, 36 degrees, which is about his baseline. Pulse 50, respiratory rate 18, blood pressure 150/100, saturating 95% on 2 L. He is in no acute distress but he is frequently clearing his throat, and seems to have a lot of upper airway issues. His eyes without conjunctivitis. Oral cavity negative. Lungs: Upper airway transmitted sounds are heard. The lower lungs seem reasonably clear, though he does have decreased excursion and air movement as one would expect in a quadriplegic. Cardiac tones: Regular rate and rhythm. No new abdominal findings. No skin rash. LABORATORIES: Include white count 7000 with completely normal diff. This has been consistent throughout his hospital stay. Procalcitonin is less than 0.1 on two occasions. Creatinine less than 0.3. Urinalysis without white cells. Micro studies negative. Respiratory PCR panel has been done. Blood cultures are negative. Urine is growing a fairly resistant acinetobacter but the urinalysis has no white cells, and I suspect this represents colonization on the basis of his chronic suprapubic tube. IMAGING: Includes a chest x-ray done today which we compared on the view screen to one done two days ago. It looks relatively similar or perhaps even improved. I do not see any notable infiltrate. IMPRESSION: This is a complex patient who has now suffered a T1 compression fracture and who has healing large decubitus ulcers with probable previous underlying osteomyelitis. Infectious Disease this time was consulted about possible pneumonia. I think on his prior chest x-ray there might be a bit of atelectasis and at worst, that continues onto this chest x-ray but I do not see any large or significant infiltrates. His procalcitonins have been less than 0.1 twice which would make bacterial pneumonia, including aspiration pneumonia, extremely unlikely. The acinetobacter in the urine probably represents colonization. I discussed this case in detail with Dr. Meier yesterday. We agree that the acinetobacter in the urine should be ignored at this point, and that we should complete a course of azithromycin for upper airway process. RECOMMENDATIONS: 1. Complete a 5-day course of azithromycin. 2. If possible, the patient should sit up part of the day or at least be in some different position than lying perfectly flat on his back, as I think part of his inability to clear his upper airway secretions is just staying in one position while also, of course, being quadriplegic. 3. Infectious Disease will go ahead and sign off on this case at this time with recommendation to complete a short course of azithromycin. Please do not hesitate to call us if there are additional questions or issues.
[2016-10-19] MEDS: Ascorbic Acid 500 mg Tablet PO SCH (10:31)
[2016-10-19] MEDS: Ketorolac 15 mg/mL Inj IVPUSH PRN (10:32)
[2016-10-19 10:34] VITALS: PULSE 44
[2016-10-19] MEDS: Phenytoin 100 mg ER Capsule PO SCH ×2 (12:28→20:29)
--- NOTE | 2016-10-19 14:00 | ABG ---
DateTimeAnalyzed 13:55:00 -_ pH ____7.321 - 7.350 7.450 pCO2 ___59.8__ -mmHg 35.0 45.0 pO2 128 -mmHg 69.0 116 HCO3- ___30.0__ -mmol/L 22.0 26.0 ABE ____3.2__ -mmol/L -2.0 2.0 tHb ___11.4__ -g/dL O2Hb ___96.3__ -% COHb ____1.6__ -% MetHb ____1.0__ -% sO2 ___98.9__ -% 25.0 FIO2 ___30.0__ -% Drawn By jh - Liter_Flow ____5.0__ -L/min Oxygen Device 1 SIMP MASK - B 757 -mmHg tO2 ___15.7__ -Vol%
[2016-10-19 14:55] VITALS: BP 139/69; PULSE 48; RESP 20; O2SAT 95
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
[2016-10-19 19:59] VITALS: BP 127/55; PULSE 41; RESP 18; O2SAT 95
[2016-10-20] VITALS (7 sets, daily range): BP systolic 82–144; BP diastolic 42–60; PULSE 45–50; RESP 14–18; O2SAT 90–97
[2016-10-20] MEDS: Ascorbic Acid 500 mg Tablet PO SCH (08:30)
[2016-10-20] MEDS: Azithromycin Inj 500 MG in Dextrose 5% w/Vial Mate 250 ML IV SCH (08:46)
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
[2016-10-20] MEDS: Phenytoin 100 mg ER Capsule PO SCH ×2 (12:51→21:41)
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
[2016-10-21 01:08] VITALS: BP 136/65; PULSE 46; RESP 18; O2SAT 97
[2016-10-21 05:18] VITALS: PULSE 48
[2016-10-21 05:57] VITALS: BP 121/77; PULSE 46; RESP 18; O2SAT 96
[2016-10-21 06:22] LABS: BASOPHILS % (AUTO) 0.3 % (0-3); EOSINOPHILS % (AUTO) 3.7 % (0-5); MONOCYTES % (AUTO) 7.1 % (4-12); Mean Corpuscular Hemoglobin 27.6 pg (27.0-35.0); Mean Corpuscular Volume 81.9 fL (81-100); NEUTROPHILS % (AUTO) 73.3 % (40-74); Platelet Count 190 bil/L (150-400)
[2016-10-21 06:38] LABS: Magnesium 1.8 mg/dL (1.6-2.6); Phosphorus 2.8 mg/dL (2.5-4.9)
[2016-10-21 07:47] VITALS: PULSE 44
[2016-10-21] MEDS: Ascorbic Acid 500 mg Tablet PO SCH (08:30)
[2016-10-21 08:48] VITALS: BP 123/54; PULSE 48; RESP 18; O2SAT 90
[2016-10-21] MEDS: Azithromycin Inj 500 MG in Dextrose 5% w/Vial Mate 250 ML IV SCH (09:49)
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
[2016-10-21] MEDS ORDERED: Fluticasone 0.05% 15 Spray/2 Gm 16 Gm Nasal Spray NASAL SCH (11:05)
[2016-10-21 11:59] VITALS: BP 84/67; PULSE 47; RESP 20; O2SAT 95
[2016-10-21] MEDS: Phenytoin 100 mg ER Capsule PO SCH (12:04)
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
== END 2016-10-21 14:24 | disposition home health service (06) | DRG 551 ==
LOC: SED 10:42 → OBSVTOIN 14:48 → MPC 14:48
PROVIDERS: ADMIT Internal Medicine Infectious Disease; ATTEND Internal Medicine Infectious Disease
PROC: 4A00X4Z Measurement of Central Nervous Electrical Activity, External Approach (ICD-10-PCS; principal; 2016-10-17)
PROC: 4A033R1 Measurement of Arterial Saturation, Peripheral, Percutaneous Approach (ICD-10-PCS; 2016-10-19)
DX: S22.011A Stable burst fracture of first thoracic vertebra, initial encounter for closed fracture (principal); G82.54 Quadriplegia, C5-C7 incomplete; J96.22 Acute and chronic respiratory failure with hypercapnia; J18.9 Pneumonia, unspecified organism; L89.224 Pressure ulcer of left hip, stage 4; L89.214 Pressure ulcer of right hip, stage 4; L89.893 Pressure ulcer of other site, stage 3; G47.33 Obstructive sleep apnea (adult) (pediatric); E66.01 Morbid (severe) obesity due to excess calories; G40.909 Epilepsy, unspecified, not intractable, without status epilepticus; R00.1 Bradycardia, unspecified; Z51.5 Encounter for palliative care; Z68.39 Body mass index [BMI] 39.0-39.9, adult

== ENCOUNTER 2016-11-14 09:38 | Inpatient (IN) | payer MEDICARE, MEDICAID ==
[~2016-11-14] VITALS: Ht 170.2 cm; Wt 100.0 kg
[2016-11-14] VITALS (9 sets, daily range): BP systolic 127–162; BP diastolic 56–84; PULSE 37–45; RESP 14–19; O2SAT 90–97
[~2016-11-14 09:38] MED LIST changes: +ASPI325T32 PO; +BACL10TA PO; -CIPR-232 PO; -METR500T PO; -SACC250C PO
--- NOTE | 2016-11-14 09:44 | ED.REPORT ---
HPI-Psychiatric Illness Date of Service Nov 14, 2016 ED Provider: Eleazar Martinez MD Nursing Notes Stated Complaint: POSSIBLE HALLUCINATIONS Allergies: Coded Allergies: No Known Drug Allergies (Verified Allergy, Unknown, 10/16/16) ONLY ALLERGIC TO DETERGENT PERFUME; NO DRUG ALLERGIES PER PATEINT Uncoded Allergies: PERFUME IN DETERGENT (Adverse Reaction, Severe, RED RASH, 07/27/12) Scheduled Ascorbic Acid (Vitamin C) 500 Mg Capsule.er 500 MG PO DAILY Multivitamin (Multi Vitamin Daily) 1 Each Tablet 1 EACH PO DAILY Phenytoin Sodium Extended (Phenytoin Sodium Extended) 100 Mg Capsule 200 MG PO noon Phenytoin Sodium Extended (Phenytoin Sodium Extended) 100 Mg Capsule 300 MG PO HS Miscellaneous Medications Aspirin (Aspirin) 325 Mg Tablet 325 MG PO Baclofen (Baclofen) 10 Mg Tablet General Time Seen by MD: 09:43 Past Medical History Past Medical History Incomplete C7 quadriplegia Mild sinusitis Seizure disorder Morbid obesity Recurrent bladder infections stage IV bilateral ischial decubitus ulcers Past Surgical History Multiple buttock decubitus ulcer debridement Baclofen pump Debridement of right ischial pressure sore with right gluteal myocutaneous flap closure. Smoking History Never Smoker Social History Alcohol Use: Denies alcohol use Drug Use: Denies drug use Other Social History: Good social support Ambulatory Status Wheelchair Physical Exam Initial Vital Signs Vital Signs (First) Date Time Temp Pulse Resp B/P Pulse Ox O2 Delivery O2 Flow Rate FiO2 11/14/16 09:45 39 19 141/59 90 Room Air 11/14/16 10:02 36.3 2 Discharge & Departure Referrals: Saul Kendrick MD (PCP) Eleazar Martinez MD Nov 14, 2016 09:44
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
[2016-11-14 10:33] LABS: BASOPHILS % (AUTO) 0.2 % (0-3); EOSINOPHILS % (AUTO) 3.7 % (0-5); MONOCYTES % (AUTO) 8.1 % (4-12); Mean Corpuscular Hemoglobin 27.6 pg (27.0-35.0); Mean Corpuscular Volume 85.7 fL (81-100); Platelet Count 133 bil/L (150-400)
[2016-11-14 10:53] LABS: Magnesium 1.8 mg/dL (1.6-2.6)
--- NOTE | 2016-11-14 11:04 | DRSVH ---
PROCEDURE: X-RAY CHEST ONE VIEW, PORTABLE ([id number]) INDICATIONS: 56 year-old male with shortness of breath. TECHNIQUE: One view of the chest was acquired. COMPARISON: [facility], CR, XR CHEST 1VW (PORTABLE), 10/17/2016, 6:24. [facility], CR, XR CHEST 1VW (PORTABLE), 10/19/2016, 5:28. FINDINGS: Surgical changes and devices: There are postsurgical changes in the lower cervical spine. Lungs and pleura: Bilateral interstitial and airspace infiltrates suspicious for pulmonary edema sec ondary to congestive heart failure. No pleural effusions or pneumothorax. Left basilar opacity may be atelectasis or consolidation. Mediastinum: Mediastinal contours appear normal. Heart size is mildly increased. Bones and chest wall: No suspicious bony lesions. Overlying soft tissues appear unremarkable. IMPRESSION: 1. Suspect pulmonary edema secondary to congestive heart failure. 2. Left basilar opacity may be consolidation or atelectasis. Dictated by: David Simeon M.D. on 11/14/2016 at 11:00 Approved by: David Simeon M.D. on 11/14/2016 at 11:02
[2016-11-14] MEDS ORDERED: 0.9% Sodium Chloride 1,000 ML IV ONE (11:05)
[2016-11-14 12:11] LABS: APPEARANCE,URINE CLOUDY (CLEAR,HAZY); COLOR,URINE STRAW (YELLOW)
[2016-11-14 12:12] LABS: OCCULT BLOOD,URINE SMALL (NEGATIVE); UROBILINOGEN,URINE NORMAL (NORMAL); YEAST,URINE MODERATE (NONE SEEN)
[2016-11-14] MEDS ORDERED: Alum-Mag Hydrox-Simeth 30 mL Suspension PO PRN (13:15)
[2016-11-14] MEDS ORDERED: Ondansetron 2 mg/mL 2 mL Inj IVPUSH PRN (13:15)
[2016-11-14] MEDS ORDERED: Polyethylene Glycol (PEG) 17 Gm Powder PO PRN (13:15)
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
--- NOTE | 2016-11-14 14:52 | NUR ---
Physical Therapy: PT order received. Per notes from previous visit, pt is a leda lift transfer at baseline to an electric w/c with part time flexible clerk caregiving. No acute PT needs at this time. Pt will be removed from PT caseload.
--- NOTE | 2016-11-14 18:52 | PCM.CHPCAR ---
Consult Subjective Date of service Nov 14, 2016 Date of admit Nov 14, 2016 at 12:58 Provider Requesting Consult Requesting Provider: Jaison Johnson DO Primary Care Physician Primary Care Physician: Saul Kendrick MD Chief Complaint Bradycardia History of Present Illness This is a 56-year-old paraplegic male with a past medical history of obesity hypoventilation syndrome with history of severe obstructive sleep apnea, history of epilepsy but controlled with phenytoin, who presents to [facility]'s emergency room after having documented shortness of breath and significant bradycardia. The patient also had some acute onset of hallucinations and impairment mental status noted by his father. The patient has been prescribed home Trilogy but has had difficulty wearing the mask. The patient states that he has been more immobile over the past 2 months. He was seen by my colleague during his previous hospitalization because of bradycardia. He is pale that his bradycardia was not symptomatic hence no pacemaker was indicated. He has a structural normal heart and function. There is also concern of CHF on this admission but his pro BNP is within normal limits which essentially excludes CHF. The patient denies any history of near- syncope or syncope. He believes his bradycardia secondary to be in more immobile. So far his monitor and storage bin tender has not shown any significant bradycardia with high degree AV fred conduction disease. His EKGs have showed sinus bradycardia. His heart rate his drug down to the upper 30s but he denies any symptoms at rest. He does have some degree of shortness of breath but is very difficult this since he has not mobile. He denies any PND or orthopnea and appears to be comfortable lying in supine position when I was talking to him. The patient has severe nuchal obesity. Review of Systems Review of Systems A 10 point review of systems was conducted entirely negative excepting pertinent positives and negatives included in above history of present illness PMH Past Medical History Incomplete C7 quadriplegia Mild sinusitis Seizure disorder Morbid obesity Recurrent bladder infections stage IV bilateral ischial decubitus ulcers History of recurrent UTIs, presents of suprapubic catheter Scheduled Ascorbic Acid (Vitamin C) 500 Mg Capsule.er 500 MG PO DAILY (Reported) Aspirin (Aspirin) 325 Mg Tablet 325 MG PO DAILY (Reported) Baclofen (Baclofen) 10 Mg Tablet 10 MG PO TID (Reported) Multivitamin (Multi Vitamin Daily) 1 Each Tablet 1 EACH PO DAILY (Reported) Phenytoin Sodium Extended (Phenytoin Sodium Extended) 100 Mg Capsule 200 MG PO noon (Reported) Phenytoin Sodium Extended (Phenytoin Sodium Extended) 100 Mg Capsule 300 MG PO HS (Reported) Current Inpatient Medications Current Medications Al Hydrox/Mg Hydrox/Simethicone 30 ml Q6H PRN PO; Start 11/14/16 at 13:15 Ondansetron HCl 4 to 8 mg Q4H PRN IVPUSH; Start 11/14/16 at 13:15 Senna 17.2 mg BID PRN PO; Start 11/14/16 at 13:15 Polyethylene Glycol 17 gm DAILY PRN PO; Start 11/14/16 at 13:15 Morphine Sulfate 1-2 mg Q4H PRN IV; Start 11/14/16 at 13:15 Aspirin 325 mg DAILY PO; Start 11/15/16 at 08:30 Baclofen 10 mg TID PO; Start 11/14/16 at 20:30 Phenytoin 200 mg noon PO; Start 11/15/16 at 12:00 Phenytoin 300 mg HS PO; Start 11/14/16 at 21:00 Ascorbic Acid 500 mg DAILY PO; Start 11/15/16 at 08:30 Multivitamins/ Minerals Therapeutic 1 tablet DAILY PO; Start 11/15/16 at 08:30 Allergies: Coded Allergies: No Known Drug Allergies (Verified Allergy, Unknown, 10/16/16) ONLY ALLERGIC TO DETERGENT PERFUME; NO DRUG ALLERGIES PER PATEINT Uncoded Allergies: PERFUME IN DETERGENT (Adverse Reaction, Severe, RED RASH, 07/27/12) Family History Family History Patient's father is 83 years old and has had 3-5 myocardial infarctions and coronary artery stents and some failed stents. Patient's mother is 83 and has had a myocardial infarction as well. She has survived 3 different types of cancer which include non-Hodgkin's lymphoma, breast cancer and skin cancer. Patient has 1 sister who has multiple sclerosis and is quite functional. Patient has 1 brother who is healthy. Social History Hx Alcohol Use: Yes (not in the last 2 years)Hx Substance Use: NoHx Tobacco Use: No (patient used to chew [place] chewing tobacco) Smoking Status: Never Smoker Living Arrangement: with Family Exam Vital Signs Vital Sign - Last Date Time Temp Pulse Resp B/P Pulse Ox O2 Delivery O2 Flow Rate FiO2 11/14/16 13:49 36.3 38 18 162/84 97 Nasal Cannula 2.00 General: Pleasant Cooperative Severely obese Skin: Warm & dry to touch Head: Normocephalic Eye: EOMS intact Neck: Nuchal obesity:JVP assess difficult Ears, Nose & Throat: Ears no gross abnormalities Nose no gross abnormalities Chest: Clear auscultation w/o rales/wheeze Cardiac: Regular rhythm (bradycardic) No murmurs Abdomen: Obese Neurological: Alert & oriented Oriented to time, person & place Paraplegia present Lab and Diagnostics Labs CBC Test 11/14/16 10:15 White Blood Count 6.6th/mm3 (3.8-10.1) Red Blood Count 4.56mil/mm3 (4.40-5.80) Hemoglobin 12.6g/dL (13.8-17.2) Hematocrit 39.1% (41.0-50.0) Mean Corpuscular Volume 85.7fL (81-100) Mean Corpuscular Hemoglobin 27.6pg (27.0-35.0) Mean Corpuscular Hemoglobin Concent 32.2% (32.0-37.0) Red Cell Distribution Width 14.5% (12.3-15.4) Platelet Count 133bil/L (150-400) Neutrophils (%) (Auto) 77.0% (40-74) Lymphocytes (%) (Auto) 10.8% (14-46) Monocytes (%) (Auto) 8.1% (4-12) Eosinophils (%) (Auto) 3.7% (0-5) Basophils (%) (Auto) 0.2% (0-3) CMP Test 11/14/16 10:15 11/14/16 11:00 Sodium Level 136mEq/L Potassium Level 4.1mEq/L Chloride Level 100mEq/L Carbon Dioxide Level 27mmol/L Blood Urea Nitrogen 11mg/dL Creatinine < 0.30mg/dL Estimat Glomerular Filtration Rate 330mL/min Glucose Level 196mg/dL Lactic Acid Level 1.7mmol/L Calcium Level 8.5mg/dL Magnesium Level 1.8mg/dL Total Bilirubin 0.3mg/dL Aspartate Amino Transf (AST/SGOT) 10U/L Alanine Aminotransferase (ALT/SGPT) 9U/L Alkaline Phosphatase 85U/L Pro-B-Type Natriuretic Peptide 168.4pg/mL Total Protein 6.9g/dL Albumin 3.5g/dL Hold Reinoso Top Tube Received Result Diagram: 11/14/16 1015 11/14/16 1015 Assessment & Plan Problems: (1) Severe sinus bradycardia Plan: This is a 56-year-old gentleman with progressive and now marketed sinus bradycardia at rest. At this time it is difficult to assess if he is symptomatic based on the fact that is paraplegic and is not very mobile. Given his history of chronic decubitus ulcers and history of recurrent UTIs I would have a high threshold for pacemaker for symptomatic sinus bradycardia. He is certainly at increased risk for pacemaker infection. At this point there is no evidence on his monitor and storage bin tender that he has high degree AV fred conduction disease. This time I would just continue to monitor his rhythm over the next 24 -48 hours and if there is no evidence of high degree AV block and no clear-cut history for near syncope/syncope, then I would simply continue to monitor this as an outpatient. The patient has no evidence for CHF clinically and moreover his pro BNP is within normal limits which essentially rules out acute CHF. The sinus bradycardia could be multifactorial. This would include hypoventilation syndrome with sleep apnea, immobilization, and possible CO2 retention. Apparently there are some difficulty trying to obtain an ABG. I would recommend to recheck his phenytoin levels to make sure that is not elevated. Although usually at high levels of phenytoin or when given IV, usually causes more severe arrhythmia such as ventricular fibrillation and high degree A-V conduction disturbance. For now I was simply continue follow from a distance but if any new cardiac issues arise during his hospitalization, I will be more than happy to assist. Status: Acute ICD Code: R00.1 (2) QUADRIPLEGIA, UNSPECIFIED Onset Date: 07/11/2012 Status: Chronic ICD Code: 344.00 (3) Stage IV pressure ulcer Onset Date: 07/11/2012 Status: Acute ICD Code: L89.94 (4) Urinary tract infection Onset Date: 06/02/2014 Status: Chronic ICD Code: N39.0 (5) OBESITY, NOS Onset Date: 07/11/2012 Status: Chronic ICD Code: 278.00 Pain Evaluation: Adequate Pain Control VTE Mechanical Devices: Intermittant Pneumatic CD Resuscitation Status: CPR: Attempt Resuscitation Time spent 60 min. David Martinez MD Nov 14, 2016 18:52
--- NOTE | 2016-11-14 18:57 | ABG ---
DateTimeAnalyzed 18:50:05 -_ pH ____7.371 - pCO2 ___55.6__ -mmHg pO2 ___60.8__ -mmHg HCO3- ___32.2__ -mmol/L 22.0 26.0 ABE ____6.1__ -mmol/L tHb ___12.8__ -g/dL O2Hb ___90.0__ -% COHb ____2.3__ -% 1.5 MetHb ____0.3__ -% sO2 ___92.4__ -% FIO2 ___28.0__ -% Drawn By lab - Spontaneous_RR 20 -b/min Liter_Flow ____2.00_ -L/min Oxygen Device 1 __CANNULA - K+ ____4.1__ -mmol/L tO2 ___16.3__ -Vol% Regan test N/A -
--- NOTE | 2016-11-14 21:00 | NUR ---
DISCUSSED WITH PATIENT THE NEED TO WEAR HIS TRILOGY TONIGHT. PATIENT STATES " MY IT ASSISTANT PUTS IT ON ME AT NIGHT AND THEN LEAVES AND THERE IS NO ONE THERE TILL THE NEXT DAY. I HAVE PANIC ATTACKS WITH IT AND FEEL LIKE I AM DROWNING, SO I WORK AT IT TILL I RIP IT OFF AND THEN ONCE OFF I CAN'T GET IT BACK ON. SO I DON'T SEE THE REASON FOR WEARING IT." PATIENT STATING HE KNOWS THAT IF HIS HEART SLOWS DOWN TOO MUCH IT COULD STOP AND HE WOULD AND HE SAYS HE IS OKAY WITH THIS. HE DOESN'T WANT TO BE VENTILATED OR HAVE ANYONE PUMP ON HIS CHEST. PATIENT MAKING CLEAR LOGICAL ARGUMENTS AND IS OF THIS EVENING A DNR/DNI. PATIENT INFORMED IF HE CHANGES HIS MIND I AM WILLING TO COME BACK AND PLACE HIM ON HIS TRILOGY AT ANY TIME. HE IS OKAY WITH THIS. RN PRESENT FOR MOST OF DISCUSSION AND INFORMED OF PATIENT'S DECISION.
--- NOTE | 2016-11-14 22:00 | NUR ---
O2: Pt refusing trilogy, refusing oxy mask. MP30 in place, witnessed apnea episodes. HR low 40's, high 30's. pt reports stomach upset and nausea. will continue to monitor. Addendum: 11/15/16 at 0459 by ROXY GALAN RN pt continues to refuse trilogy, and oxy mask. NC 2LO2, pt has frequent apnea, and O2 sats will drop to 70's and 80's, and then back up to the 90's. pt sleepy but will wake up to answer questions, then falls right back to sleep. will continue to monitor.
[2016-11-14] MEDS: Phenytoin 100 mg ER Capsule PO SCH (22:52)
--- NOTE | 2016-11-14 23:49 | CONS ---
[address] [address] CONSULTATION REPORT PATIENT: LOBITO BILLINGSLEY : 1960 MR#: [id number] ADMIT: 11/14/2016 JOB ID: [id number] DATE OF SERVICE: 11/14/[address] Jorgito Solomon for this consultation. HISTORY OF PRESENT ILLNESS: The patient is a 56-year-old gentleman, extremely well known to me from many prior admissions. He is a quadriplegic gentleman and has been so for over 27 years. His past medical history has been extremely complex as one would expect with recurrent pneumonia, decubitus ulcers, osteomyelitis and UTIs. I saw him most recently just last month for complications related to a deep decubitus ulcer. At the time I saw him in September, his decubitus ulcers were much better than they had been in July and he had been treated with Clinitron bed, wound VAC and antibiotics. When I saw him last month, I was under the impression he probably was not even infected in terms of the decubitus ulcers, although there was some discussion about increasing respiratory secretions during the admission in September, we decided to give a few days of azithromycin and then stop all antibiotics as we had no real proof by cultures, radiographs or clinical exam of respiratory infection. The patient eventually did well and went home in late September where he lives with a shirt hemmer and a Clinitron bed. The patient also has a lot of health input from his two parents who are very closely involved in his care. Apparently, according to the patient and his dad, he was doing quite well until about four days ago when he began to have tactile and visual hallucinations. The patient reported that his room was filling with different kinds of fog and that there were spiders on the ceiling as well as bugs in his bed and other issues. His father and others attempted to reassure him that these things he was seeing clearly were not there but to no avail and eventually, because of worsening hallucinations or delusions, the patient was brought here for evaluation. I was contacted from the ED regarding what we should use to treat the highly resistant Acinetobacter he has had his urine previously. Upon hearing the story, I was not certain that he was infected as a cause of this mental status change and asked the ED to hold off on his empiric antibiotic therapy. I have seen the patient now this evening and the patient has not received any antibiotics so far. This evening, the patient is quite lucid. He tells me he is not sure what precipitated all these visual hallucinations, though he was aware of it. He thinks his sleep deprivation as he has had the wound VAC and has been stuck in bed for over two months and is not left a completely supine position all that time. He eats completely flat and does everything completely flat in bed without even being brought up to a semirecumbent position, much less placed in his special air chair that he usually sits in. He thinks that the lack of sleep and inability to take deep breaths has caused him basically to become spacey. His father and mother are with him in the room, wonder if there may also be some validity to this. They also note that he tries to sleep at night with a loud TV going in and they wonder if maybe his disrupted sleep has eventually caught up to him. The patient specifically says no fevers, chills or sweats recently. He says he feels a little more short of breath and he thinks he has little more secretions lately, but he is not having any overt cough, though he has a very limited ability to cough in any event, and he does not think he has pulmonary infection but rather just increased secretions. This is similar to what he reported during his admission last month. He is having no new GI symptoms. No skin rash and, as far as he knows, his decubitus are healing dramatically. PAST MEDICAL HISTORY: 1. C6-C7 quad x27-1/2 years. 2. Recurrent UTIs. 3. Recurrent and ongoing decubitus ulcers, though they are currently healing quite well. 4. Recent history of bilateral ischial osteo treated in July and August with prolonged courses of antibiotics. 5. History of recurrent pneumonias. 6. Underlying seizure disorder controlled with Dilantin. SOCIAL HISTORY: The patient lives with a part-time caregiver. He does not smoke and only rarely drinks alcohol. FAMILY HISTORY: Negative for first-degree relatives with TB but positive for coronary disease. REVIEW OF SYSTEMS: Today, the patient has no headache. He states his visual hallucinations and confusion have resolved. He has no sore throat. He notes he may have some subtle increase in his respiratory secretions with some mild increase in shortness of breath over baseline. No chest pain. He has no nausea, vomiting or diarrhea. No issues with his indwelling suprapubic catheter and really no complaints regarding, of course, his lower extremity as he has no sensation or awareness really of that part of his body. Remainder of the review of systems is negative. PHYSICAL EXAMINATION: Reveals an afebrile gentleman, temperature 36.3, pulse 38, and he is always bradycardic, respiratory rate 18, blood pressure 162/84. He is saturating quite well on 2 L nasal cannula. He appears at baseline to me. Examination the head, no trauma. Oral cavity without thrush or hairy leukoplakia. Eyes without conjunctivitis or scleral icterus. Lungs with decreased breath sounds as expected for a gentleman lying supine and is quadriplegic, but no real rales or rhonchi are heard. Cardiac tones regular rate and rhythm without murmur. Abdomen essentially benign. Suprapubic tube is present. There is no surrounding erythema or tenderness. Penis and scrotum appear normal. Lower extremities are, of course, flaccid but without evidence of cellulitis, synovitis or significant edema. His extremities are well perfused. He is a quadriplegic, though he does have some limited use of his arms as he is a lower cervical quad. LABORATORIES: Include white count 6600, 77% segs. Otherwise normal diff. His creatinine is less than 0.3. His LFTs are normal. His procalcitonin has not been measured during this admission, nor has a CRP. Urinalysis done today, 6-10 white cells. Micro includes pending blood and urine cultures. Recall that during the earlier admissions he grew a CRE Acinetobacter which we have been ignoring thinking he is colonized with this. He has also had E. coli in prior recent UTIs. IMAGING: Today includes a chest x-ray, which I carefully compared to prior films. There could be a bit of a pulmonary edema present on this. Whether or not there is a left basilar infiltrate is hard to know, but certainly could be atelectasis as the patient does not seem clinically infected. Impression: Confusional state, resolved. Doubt significant infection RECOMMENDATIONS: 1. No antibiotics at this time. 2. Will check a procalcitonin and CRP. 3. I plan to see the patient back tomorrow when he can have his wounds changed by Wound Management. It is my understanding that there has been dramatic improvement with the wound VAC in terms of healing of his decubitus ulcers and I think it is unlikely that he has pneumonia nor worsening of those wounds. JADYN
[2016-11-15] VITALS (7 sets, daily range): BP systolic 100–152; BP diastolic 50–80; PULSE 36–47; RESP 13–20; O2SAT 93–99
[2016-11-15] MEDS ORDERED: Ascorbic Acid 500 mg Tablet PO SCH (08:30)
--- NOTE | 2016-11-15 09:28 | PCM.PNMED ---
Subjective Date of Service Nov 15, 2016 Subjective Patient demonstrated a stable bradycardia overnight, without any acute changes in condition. Mentation appears to be waxing and waning, at times is more sedate but other times he is alert. He is difficult to tell if his mentation is altered from baseline or if he is at his current state of good health given his multiple comorbidities. Nonetheless he remains hemodynamically stable even in the face of significant bradycardia. Venous blood gas previous evening demonstrated CO2 retention hypercarbia with an acidosis, however patient has continued to refuse Trilogy machine or other breathing age which may help achieve more adequate respiratory function. Denies any fever chills or sweats. Otherwise has no acute complaints. Exam Vital Signs Vital Sign - Last Date Time Temp Pulse Resp B/P Pulse Ox O2 Delivery O2 Flow Rate FiO2 11/15/16 08:42 41 11/15/16 04:08 36.6 17 152/79 94 Nasal Cannula 4.00 Intake and Output 11/14/16 11/14/16 11/15/16 Cumulative From/Thru 15:00 23:00 07:00 11/14/16 09:45 - 11/15/16 05:39 Intake Total 600 ml 100 ml 700 ml Output Total 700 ml 500 ml 1200 ml Balance -100 ml -400 ml -500 ml Intake Oral 600 ml 100 ml 700 ml Output Urine Total 700 ml 500 ml 1200 ml # Bowel Movements 0 0 General: Alert, Oriented X3, Cooperative, No Acute Distress, Other ( intermittently patient will appeared to fall asleep for a few moments, lids remained droopy however mentation appears intact he is speaking in full sentences. ) Mouth: Mucous Membranes Dry Neck: Other (neck is large obese with small mouth. Supple without masses) Chest & Lungs: Coarse breath sounds Cardiovascular: Regular Rate/Rhythm Abdomen: Non-tender, Non-distended, Other (obese) Extremities: No cyanosis/clubbing/edma bilat, Other (paralyzed and cool to touch) Neurological: Grossly Neurologically Intact, Other (something chronic neurologic deficits due to pre-existing paraplegia. ) IVs and Medications Medications Reviewed: Medications were reviewed in detail Lab and Diagnostics Result Diagram: 11/14/16 1015 11/14/16 1015 Assessment & Plan 56-year-old paraplegic male past medical history significant for obesity hypoventilation syndrome in addition to obstructive sleep apnea presenting with acute onset of hallucinations and impaired mental status as noted by father while home aggressive over past few weeks admitted for further evaluation of profound bradycardia and respiratory impairment with hypoventilation: 1. Severe bradycardia - Patient was placed on hospital for monitored on continuous telemetry - He is currently hemodynamically stable at this time - Cardiology has been consulted and Dr. Martinez continue to appreciate his recommendations - Etiology is unclear, may be multifactorial, certainly presence of acidosis may be contributing to impaired cardiac function. Patient's baseline is already bradycardic but this is the most pronounced in based on review of prior hospitalizations. - Positive interventions may include cardiac pacemaker however given patient's decubiti and frequent infections this will be done with extreme discretion. - Continue to monitor, rating further recommendations and cardiology requiring need for intervention or possible continued watchful waiting. 2. Obstructive sleep apnea/obesity hypoventilation syndrome/hypercarbia/ hallucinations - Certainly hypercarbia in the setting of poorly treated pulmonary diseases could account for altered mentation and hallucinations. - Patient's parents have brought it is truly machine which was fitted by respiratory therapy, over last night patient again refused machine saying is too uncomfortable. . - Patient has been strongly encouraged to utilize breathing machine which may provide significant benefit and removal of carbon dioxide and evangelical of acid-base balance - We will continue to monitor patient on continuous telemetry addition to continuous pulse oximetry, respiratory function certainly appears impaired impaired at this time, and patient's level sedation is not his baseline. - Patient states he may compromise and consider wearing breathing machine at least for times during the day to help remove some carbon dioxide from blood, respiratory therapy will be notified attempt if it patient later this morning or early afternoon. Should this prove successful follow-up venous blood gas may be useful to determine the effects of shorter duration breathing therapies on patient's acid-base balance and respiratory acidosis. 3. Bacteriuria - Patient has extensive history of frequent urinary tract infections, previously noted to have a highly resistant strain of Acetobacter - It is not yet clear patient has clinical signs of cystitis, or this represents asymptomatic bacteriuria - Urine culture remains pending no other evidence of acute infection noted. -Continue to to refrain from antibiotic therapy at this time pending culture results. 4. Quadriplegia/chronic decubiti - Patient with irritated frequently to prevent worsening of chronic decubitus ulcer - Physical therapy consulted for passive range of motion - We will discuss case or social work she may benefit from alterations to home hospital bed to assist in mobility and strength. - There is no evidence of active infection at this time of decubitus ulcers wound care we consulted further evaluation dressing changes. Pain Evaluation: Adequate Pain Control GI Prophylaxis: Not indicated VTE Mechanical Devices: Intermittant Pneumatic CD Resuscitation Status: CPR: Attempt Resuscitation Time spent 30 minutes Jaison Johnson DO Nov 15, 2016 09:28
--- NOTE | 2016-11-15 11:50 | PROG NOTE ---
[address] [address] PROGRESS NOTE PATIENT: LOBITO BILLINGSLEY : 1960 MR#: [id number] ADMIT: 11/14/2016 JOB ID: [id number] INFECTIOUS DISEASE FOLLOWUP: DATE: 11/15/2016 REASON FOR FOLLOWUP: Mental status changes of unknown etiology in a quadriplegic patient with chronic decubitus ulcers and a history of recurrent urinary tract infections. Today, the patient is awake, alert and very lethargic. He denies fevers, chills, new pulmonary complaint or any other constitutional problems. He does note he continues to be very, very tired and it is reported that at times he is actually confused. At the time we examined him though he was oriented x3. PHYSICAL EXAMINATION: Reveals obese, quadriplegic gentleman lying supine in his Cl[place]ron bed. Temp 36.6, and he has been afebrile since this admission, pulse 41, respiratory rate 17, blood pressure 152/49. He is saturating well but on 4 L. He is arousable and oriented x3. His oral cavity unremarkable. Lungs: Decreased breath sounds bilaterally as is normal for him but no rales or rhonchi. Cardiac tones regular. Abdomen without change. He has a suprapubic catheter. LABORATORY DATA: Labs include a white count yesterday 6600. CRP was 1.3 which is minimally elevated and not surprising in a gentleman who has a wound VAC in place. Procalcitonin was negative at 0.04. Urinalysis 6-10 white cells. The urine is growing gram-negative rods to be identified and recall that he has had some resistant enterobacter in the past. Blood cultures are negative. IMAGING: A chest x-ray done yesterday showed possible minimal CHF with chronic left-sided subtle infiltrate, atelectasis versus pneumonia. IMPRESSION: At this point, the patient looks uninfected. We have a chest x-ray that shows little in the way of new infiltrate. He has chronic very minimal pyuria and is growing gram-negative rods, but recall that anybody with a suprapubic will always have a few extra white cells and will always have a positive culture. It may clipper and turner that the urine gram-negative ekaterina is a highly resistant Acinetobacter but there is little we can do about eradicating that and we would confine herself to treating it, if and when we thought it was causing symptoms. I suspect his lethargy and confusion are on the basis of hypoventilation as opposed to other issues. RECOMMENDATIONS: 1. No antibiotics. 2. Will follow up on the urine culture tomorrow and provide additional guidance regarding the significance of that isolette.
[2016-11-15] MEDS: Ascorbic Acid 500 mg Tablet PO SCH (12:08)
[2016-11-15] MEDS: Heparin 5,000 Unit/mL Inj SUBQ SCH ×2 (12:09→16:38)
[2016-11-15] MEDS: Phenytoin 100 mg ER Capsule PO SCH ×3 (12:09→21:25)
--- NOTE | 2016-11-15 12:35 | NUR ---
Disimpaction Disimpacted patient per request.
--- NOTE | 2016-11-15 15:41 | NUR ---
Social Work-initial assessment: Data:See initial assessment. Pt is a 56 y/o male who was admitted on 11/14/16 for bradycardia per H&P. Pt's insurance is [employer] and [facility] [employer] and PCP is Saul Kendrick MD. EMR reviewed. Pt's readmission score is 2. SW attempted to see pt, but pt sleeping. SW placed a call to father Marc to discuss, SW role explained. Pt resides at home with caregivers through [employer]. Father confirms MAN[facility] CM is Dary Downing, updated clinicals faxed and SW spoke with Dary. Pt has clintron bed at home and does not drive. Pt has [facility] currently and has SNF history. Pt has no usp care insurance or VA benefits. SW discussed DPOA/ advanced directive, father confirms they have attempted to do this, declined any information. SW to await MD order for resume HH. Pt typically transports home via BLS. SW will continue to follow. Assessment:Pt who has caregivers at baseline. Plan:Pt to discharge home when medically stable via BLS. Pt to continue with his [facility] caregivers. SW to await MD orders for Resume HH. SW will continue to follow. CHATO Ziegler Addendum: 11/15/16 at 1545 by BAMBI SUAZO Amended: Links added.
--- NOTE | 2016-11-15 16:05 | NUR ---
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 Patient resides at his own home with caregivers and owns his own clinitron bed. Currently his left ischial ulcer is being treated with NPWT and he is in a hospital clinitron bed, this dressing is removed today to reveal much improvement from the last time that I visualized these wounds, currently the wound is 100% granular and has a length of 9 cm and a width of 2.5 cm and a depth of 2 cms, bone is covered with granulation tissue, negative pressure dressing was reapplied today with black foam and 150 mmhg continuous therapy an excellent seal was attained. Right ischial pressure injury is 100% granular and is 2 cm in length by 2 cm in width and 1 cm in depth, this wound is cleaned with saline and a moist 4x4 gauze was packed into the ulcer, this can/should be changed daily. Patient has a pressure injury at his thoracic spine which is a combination of fibrin (30%) and granulation tissue (70%), this was cleaned with saline and a piece of Aquacel ag was placed in the wound bed and foam adhesive dressing was placed over that, this is to be changed q 48 hours. None of these wounds are infected and are continuing to heal. Suspect patient will be able to discharge back to his home when medically stable, he ghas home health and caregivers.
--- NOTE | 2016-11-15 16:10 | NUR ---
mentation/trilogy Pt slept throughout most of shift, would awaken to voice, but fall asleep mid conversation. Pt ,mumbled, answered questions appropriately, just hard to keep awake. No hallucinations Pt refused to use trilogy mask, but agreed to use it as a blow-by even though RT explained to him that he was retaining CO2 and that blow-by would not help(see RT note). MD aware. Pt remained on 2L NC with Sp02 that remained 95-99% when awake and would fluctuate between mid 70s-96% when sleeping.
--- NOTE | 2016-11-15 18:00 | NUR ---
Tele Tele reported a 3.4 second pause. check on pt who was asymptomatic. Kristal ACEVEDO.
[2016-11-15] MEDS ORDERED: Atropine 1 mg/10 mL (Code) Syringe IVPUSH PRN (23:35)
[2016-11-16] VITALS (9 sets, daily range): BP systolic 96–179; BP diastolic 46–119; PULSE 38–44; RESP 12–18; O2SAT 91–99
[2016-11-16] MEDS: Heparin 5,000 Unit/mL Inj SUBQ SCH ×3 (00:50→17:18)
--- NOTE | 2016-11-16 02:29 | NUR ---
RESPONDED TO CALL THAT PATIENT WAS DROPPING HIS HEART RATE DOWN INTO THE 20'S. PATIENT AWAKE AND TALKING WITH RT AND USING HIS SIPPER ON HIS TRILOGY ON AND OFF. HEART RATE CONTINUED TO FLUCTUATE 27-39 THROUGHOUT TIME RT WAS IN ROOM WITH PATIENT AND TALKING WITH HIM. SOME DESATURATION WAS NOTED WHILE PATIENT WAS ON TRILOGY SIPPER BUT O2 BLEEDIN WAS FOUND TO BE DISCONNECTED. RECONNECTED AND PATIENT'S SPO2 BACK INTO THE MID 90'S WHILE USING THE SIPPER. NC AT 2 L LEFT ON PATIENT DUE TO HIS COMING ON AND OFF OF SIPPER AT WILL. RN AND CHARGE NOTIFIED OF FINDINGS.
--- NOTE | 2016-11-16 06:07 | NUR ---
REFUSAL OF BIPAP Patient confused, seeing smoke on ceiling. Patient pupils pin point. Falls asleep with eyes open. Patient has sipper Bipap at bedside. Refusing to use Bipap mask. Made patient aware of the risks of not wearing bipap mask and that CO2 retention can result in . Patient states "I didnt know I could ." "I feel like I am drowning with the mask Im not refusing, I just cant my anxiety is so bad", "what are my other options". Kristal ACEVEDO, states only option is for him to wear his mask, no other orders at this time. Patient continues to refuse mask and requests to speak to MD directly. MD up to see patient. Patient is alert to self, place, and situation and is capable of making his own decisions per MD. Patient continues to refuse mask and is aware of the risk of Co2 Retention and . Patient using Bipap sipper and Nasal cannula at bedside. 02 maintained above 90% while sleeping. Patient was unable to swallow his night medication and audible gurgling was heard after he sipped his water. Night medications withheld MD aware. Patient awoke at 0400. States I feel like I passed out and just woke up I feel clearer now. Vital signs stable. Patient alert and orientedx4. Using call light. HR increased 40s. Patient c/o headache swallowed Tylenol and water with no issues.
--- NOTE | 2016-11-16 06:15 | NUR ---
Heart Rate Patients heart rate dropped to 29 and did not sustain maintaining in the mid 30s to low 40s. Patient awake alert and orientedx4. Non-symptomatic. MD notified. No parameters given. PRN atropine order if patient becomes symptomatic given. Patient had one 6 second pause. Non-symptomatic. Vitals stable. Blood pressure remains stable.
--- NOTE | 2016-11-16 09:24 | PCM.PNCARD ---
Subjective Date of service Nov 16, 2016 Chief Complaint Bradycardia History of Present Illness This is a 56-year-old male was admitted because of significant sinus bradycardia. Prior to this hospitalization he has not had any documentation of significant pauses or high degree AV block. However last night the patient had a 6 second asystole. Again this is during the middle the night when he is more prone to desaturate. The patient continues to refuse Trilogy. Today and was able to talk to his father who is by the bedside taking care of his son. His father has been pretty much been taking care of him since he has been paraplegic. At one point he stayed in his apartment for 9 months consecutively taking care of her son. The patient has home nurse throughout the day but he has nobody to take care of him at night. He lives by himself in a 1 bedroom apartment which is about 1 mile from his father's home. We talked at length about his arrhythmia and that he is at high risk for developing cardiac arrest if we do not proceed with a permanent pacemaker implantation. However the patient has been a known to us that he does not want any aggressive interventions and the father agrees with this. There have been some issues in the past were palliative care or home hospice was recommended earlier this year but the patient refused. However it seems like the patient and the patient's father are coming to realize that Luis Alberto has very limited options and his quality of life has deteriorated quite rapidly over the past 4-6 months. The patient's father, Marc, made it known to me that the patient has had infection of his baclofen pump in the past. It was quite an ordeal. Again he has had history of recurrent UTIs and he has chronic severe decubitus ulcers. After my discussion with the patient and the patient's father, I discussed the case with our on-call palliative care physician. In the past, the patient did receive palliative care consult during the previous admission but were not open to the idea of home hospcie. But, I think they are more open to the idea since his quality of life has deteriorated. Constitutional: Reports: Weakness, Denies: Fever Cardiovascular: Denies: Chest Pain Respiratory: Reports: Shortness of Breath, Wake up Gasping for Breath Gastrointestinal: Denies: Abdominal Pain Skin: Reports: Ulcers (multiple decubitus) Neurological: Reports: Confusion, Somnolence Exam Vital Signs Vital Sign - Last Date Time Temp Pulse Resp B/P Pulse Ox O2 Delivery O2 Flow Rate FiO2 11/16/16 03:57 36.3 40 18 129/91 97 Nasal Cannula 2.00 Intake and Output 11/15/16 11/15/16 11/16/16 Cumulative From/Thru 15:00 23:00 07:00 11/14/16 09:45 - 11/16/16 06:15 Intake Total 700 ml 236 ml 1636 ml Output Total 625 ml 200 ml 2025 ml Balance 75 ml 36 ml -389 ml Intake Oral 700 ml 236 ml 1636 ml Output Urine Total 625 ml 200 ml 2025 ml # Bowel Movements 1 1 General: Pleasant Cooperative Severely obese Abdomen: Obese Neurological: Oriented to time, person & place Psychological: Depressed Lab and Diagnostics Result Diagram: 11/14/16 1015 11/14/16 1015 Assessment & Plan Problems: (1) Asystole Plan: Telemonitor showed 6 seconds asystole last night. Typically the patient would need a permanent pacemaker but given his severe comorbidity and quality of life, a pacemaker will not improve his quality of life. Given his history of internal device infections another recurrent infections, he is definitely monitor high risk for pacemaker infection which in itself carries increased morbidity and mortality which this was made known to the patient and the patient 's father. But I also mentioned to the patient and the patient's father that he is at high risk for cardiac arrest and if no pacemaker is implanted. At this time this patient is DNR/DNI and he has made it known to us that he does not want any pacemaker and the patient's father somewhat agrees as well. Patient's father will like to discuss with his son about the pacemaker. I also offered palliative care consult and the patient's father's open to this. Status: Acute ICD Code: I46.9 (2) Severe sinus bradycardia Status: Acute ICD Code: R00.1 (3) QUADRIPLEGIA, UNSPECIFIED Onset Date: 07/11/2012 Status: Chronic ICD Code: 344.00 (4) Stage IV pressure ulcer Onset Date: 07/11/2012 Status: Acute ICD Code: L89.94 (5) Urinary tract infection Onset Date: 06/02/2014 Status: Chronic ICD Code: N39.0 (6) OBESITY, NOS Onset Date: 07/11/2012 Status: Chronic ICD Code: 278.00 Pain Evaluation: Adequate Pain Control GI Prophylaxis: Not indicated VTE Mechanical Devices: Intermittant Pneumatic CD Resuscitation Status: CPR: Attempt Resuscitation Time spent Prolong physician visit: 45 minutes David Martinez MD Nov 16, 2016 09:24
--- NOTE | 2016-11-16 10:15 | ABG ---
DateTimeAnalyzed 10:05:41 -_ pH ____7.347 - 7.350 7.450 pCO2 ___63.9__ -mmHg 35.0 45.0 pO2 ___55.5__ -mmHg 69.0 116 HCO3- ___35.0__ -mmol/L 22.0 26.0 ABE ____8.2__ -mmol/L tHb ___12.6__ -g/dL O2Hb ___86.9__ -% COHb ____3.1__ -% 1.5 MetHb ____0.3__ -% sO2 ___90.0__ -% FIO2 ___28.0__ -% Drawn By Lab - Date/Time Notified____ 10:14:00 -_ Notified By kbb - Notified Whom Aly, Eleazar DO -__ K+ ____4.4__ -mmol/L tO2 ___15.4__ -Vol%
--- NOTE | 2016-11-16 11:00 | NUR ---
Palliative Care Palliative Care received verbal order from Dr Martinez 11/16/16 to assist with goals of care. Patient admitted 11/14/16. He lives at home with caregivers. Marc Sahu (dad) [phone], Hina Centeno (caregiver) [phone] Palliative Care to follow. Shreya Denise Addendum: 11/16/16 at 1108 by SHREYA DENISE SS Patient was seen by the Palliative Care Team during his last admission. Shreya Denise
--- NOTE | 2016-11-16 11:01 | NUR ---
Home Trilogy at bedside with SIP connected. Patient is using SIP but refuses to wear the mask as he becomes frantic taking off mask then unable to put back on. Patient needs one on one at bedside while wearing mask to reassure him and calm his anxiety. Sp02 93% 2lpm NC HR 36 RR16
[2016-11-16] MEDS: Phenytoin 100 mg ER Capsule PO SCH ×2 (12:00→21:48)
[2016-11-16] MEDS: Ascorbic Acid 500 mg Tablet PO SCH (12:00)
--- NOTE | 2016-11-16 12:09 | NUR ---
Cardiac: Tele SB 30s-40s, and Cardiology aware, pt/father declining pacemaker placement at this time. Pt c/o "I don't feel right," BP 70s/20s, notified, 500cc bolus NS given per cardiology orders. Care ongoing.
[2016-11-16] MEDS ORDERED: Flumazenil 0.1 mg/mL 5 mL Inj IV ONE (14:07)
--- NOTE | 2016-11-16 15:07 | NUR ---
Neuro: Pt's heart rate sustaining in lower 30s, dropping down to 20s at times. MD discussed using Trilogy machine with pt, pt requesting meds to "help me handle it." 1mg Ativan given, pt tolerating Trilogy. Family concerned approx 90 minutes later, reporting that pt is unarousable, VSS. Pt does not wake to sternal rub or loud verbal stimuli, does grimace and move hands with suctioning. MD aware, MD at bedside to discuss pt status with family. Plan is to let pt sleep for approx 1 hour and then reevaluate. Family at bedside, updated on plan.
--- NOTE | 2016-11-16 15:46 | PROG NOTE ---
[address] [address] PROGRESS NOTE PATIENT: LOBITO BILLINGSLEY : 1960 MR#: [id number] ADMIT: 11/14/2016 JOB ID: [id number] DATE: 11/16/2016 INFECTIOUS DISEASE FOLLOW UP NOTE: REASON FOR FOLLOWUP: Quadriplegic gentleman with bradycardia, hypoventilation, hypotension. INTERVAL HISTORY: Through the night the patient has continued to have respiratory difficulties with minimal ventilation, hypotension and bradycardia. This is believed to be on the basis of progressive respiratory insufficiency and it was strongly advocated the patient try the Trilogy mask. He eventually agreed to try the Trilogy unit but only if he was given some Ativan to allay his anxiety. This was done and now the patient's blood pressure, respiratory rate and pulse have improved but he is largely unresponsive. The patient's father and I were just barely able to get him to open his eyes through some sternal rubbing and then he goes right back to sleep. PHYSICAL EXAMINATION: Reveals a quadriplegic gentleman lying very still in his hospital bed and breathing with a Trilogy apparatus but almost unresponsive except to deep sternal rub. Temperature 35.7. He has been afebrile since his admission 2-1/2 days ago. Pulse 38, respiratory rate 15, blood pressure 121/80, saturating well now on the Trilogy. His pulse and blood pressure rebounded as noted. His eyes are without conjunctivitis. He is somewhat pale in the conjunctivae when he does open his eyes. A Trilogy mask in place. No herpetic lesions. Lungs with improved ventilation bilaterally. No rales are heard. Abdomen soft and nontender. He has a suprapubic. LABORATORIES: No new labs. His last white count was 6600, last procalcitonin was 0. Urinalysis with 6-10 white cells. Urine and blood cultures negative. No recent imaging. IMPRESSION: I see no evidence of infection in this unfortunate quadriplegic gentleman. At this point, antibiotics are not indicated. RECOMMENDATIONS: 1. No antibiotics. 2. ID will go ahead and sign off at this time. I did discuss the situation with the patient's father with whom I have some rapport and the patient's father and mother are prepared at least as much as they can be for what appears to be his terminal admission if his respiratory status does not improve somewhat. 3. Please call me back if there are additional issues or questions.
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
--- NOTE | 2016-11-16 19:38 | PCM.PNMED ---
Subjective Date of Service Nov 16, 2016 Subjective Patient remains lethargic and sedate, eyelids drooping intermittently falling asleep and waking up again, but does not demonstrate any acute changes. He has been medically unstable regarding pulse rate is continue to be downward trending into the 20s at times and averaging more in the 30s in addition to downward trending blood pressures, as noted by nursing. He is in no acute pain however he does note feeling very odd one point comments "I feel he come standing next to you, even though I think I am lying in bed". He is continued to resist using Trilogy machine, in the morning respiratory therapy worked to set up modified tubing device which he uses for inhalation only. Exam Vital Signs Vital Sign - Last Date Time Temp Pulse Resp B/P Pulse Ox O2 Delivery O2 Flow Rate FiO2 11/16/16 17:29 38 13 160/103 91 trilogy 11/16/16 16:30 4.00 11/16/16 09:31 35.7 Intake and Output 11/15/16 11/15/16 11/16/16 Cumulative From/Thru 15:00 23:00 07:00 11/14/16 09:45 - 11/16/16 06:15 Intake Total 700 ml 236 ml 1636 ml Output Total 625 ml 200 ml 2025 ml Balance 75 ml 36 ml -389 ml Intake Oral 700 ml 236 ml 1636 ml Output Urine Total 625 ml 200 ml 2025 ml # Bowel Movements 1 1 Exam General: Alert, Oriented X3, Cooperative, No Acute Distress, remains sedate with droopy eyelids, describing some bizarre thoughts as noted in subjective. Mouth: Mucous Membranes Dry Neck: Neck is large obese with small mouth. Supple without masses Chest & Lungs: Coarse breath sounds Cardiovascular: Regular Rate/Rhythm Abdomen: Non-tender, Non-distended, Other (obese) Extremities: No cyanosis/clubbing/edma bilat, paralyzed and cool to touch Neurological: Grossly Neurologically Intact, Other (something chronic neurologic deficits due to pre-existing paraplegia. Sacral and thoracic decubiti are sealed with wound VAC IVs and Medications Medications Reviewed: Medications were reviewed in detail Lab and Diagnostics Result Diagram: 11/14/16 1015 11/14/16 1015 Assessment & Plan 56-year-old paraplegic male past medical history significant for obesity hypoventilation syndrome in addition to obstructive sleep apnea presenting with acute onset of hallucinations and impaired mental status as noted by father while home aggressive over past few weeks admitted for further evaluation of profound bradycardia and respiratory impairment with hypoventilation: 1. Severe bradycardia - Patient was placed on hospital for monitored on continuous telemetry - He is currently not hemodynamically stable profoundly hypotensive with blood pressures ranging as low as a map of below 30 - Cardiology has been consulted and Dr. Martinez continue to appreciate his recommendations; given patient's current abilities it does not seem to feel patient is a good candidate for pacer as such has declined medical therapy such as atropine for bradycardia which he notes only be useful for short period of time. - Etiology is unclear, may be multifactorial, certainly presence of acidosis may be contributing to impaired cardiac function, this has been noted to be worsening on today's venous blood gas with continued noncompliance with Trilogy. - Positive interventions may include cardiac pacemaker however given patient's decubiti and frequent infections this will be done with extreme discretion. - Continue to monitor, rating further recommendations and cardiology requiring need for intervention or possible continued watchful waiting. 2. Obstructive sleep apnea/obesity hypoventilation syndrome/hypercarbia/ hallucinations - Certainly hypercarbia in the setting of poorly treated pulmonary diseases could account for altered mentation and hallucinations. - Patient's parents have brought it is truly machine which was fitted by respiratory therapy, over last night patient again refused machine saying is too uncomfortable. . - Patient has been strongly encouraged to utilize breathing machine which may provide significant benefit and removal of carbon dioxide and lutheran of acid-base balance - We will continue to monitor patient on continuous telemetry addition to continuous pulse oximetry, respiratory function certainly appears impaired impaired at this time, and patient's level sedation is not his baseline. - Patient's anxiety created due to face mask is his main reason for noncompliance. We suggested he receive a medication for anxiety prior to applying Trilogy machine with proper face mask and he agrees to try this. His only request is that appears strong anxiety medication. - Patient was fitted with surgery machine, and after 10 minutes provided a 1 mg dose of IV Ativan. This may have offered excessive manifestations patient slept for a next number of our symptoms minimally responsive, but nonetheless both blood pressure and bradycardia which been downward trending demonstrated improvement with application of a Trilogy even in spite of patient's sedation. By later in the afternoon mentation seem to be improving and blood pressure and bradycardia while still pronounced remained stable. - We may consider trial of lower dosage benzodiazepine to aid in control of anxiety without causing such profound sedation tomorrow. 3. Bacteriuria - Patient has extensive history of frequent urinary tract infections, previously noted to have a highly resistant strain of Acetobacter - It is not yet clear patient has clinical signs of cystitis, or this represents asymptomatic bacteriuria - Urine culture remains pending no other evidence of acute infection noted. -Continue to to refrain from antibiotic therapy at this time pending culture results. - Infectious disease will be signing off we have appreciated recommendations greatly 4. Fourth degree decubiti of bilateral initial tuberosities and addition to thoracic decubiti/ Quadriplegia/chronic decubiti - Patient with irritated frequently to prevent worsening of chronic decubitus ulcer - Physical therapy consulted for passive range of motion - We will discuss case or social work she may benefit from alterations to home hospital bed to assist in mobility and strength. - There is no evidence of active infection at this time of decubitus ulcers wound care we consulted further evaluation dressing changes. Disposition: Patient is in need of continued medical observation for titration of Trilogy and management of comorbid anxiety spectrum disorder. Given profound bradycardia and hypotension he remains medically unstable for home discharge at this time. Pain Evaluation: Adequate Pain Control GI Prophylaxis: Not indicated VTE Mechanical Devices: Intermittant Pneumatic CD Resuscitation Status: DNR/DNI:Do Not Resuscitate/Intubate Time spent 35 minutes Jaison Johnson DO Nov 16, 2016 19:38
[2016-11-17] VITALS (9 sets, daily range): BP systolic 127–159; BP diastolic 57–100; PULSE 37–60; RESP 14–17; O2SAT 92–99
[2016-11-17] MEDS: Heparin 5,000 Unit/mL Inj SUBQ SCH ×3 (00:49→16:30)
--- NOTE | 2016-11-17 05:34 | NUR ---
Neuro Pt sleeping at beginning of shift but awoke when family members boosted pt up in bed. Pt was alert and oriented, opening eyes, taking sips of water and broth. Pt falling back asleep easily, unable to hold attention. Pt took HS meds with water. Pt wearing trilogy machine this shift. Oxygen sat in the 90's, HR in the 30's.
--- NOTE | 2016-11-17 09:23 | NUR ---
Social Work: Continued Discharge Planning D: EMR reviewed. Pt is on day 3 of hospitalization. SW placed T/C to [facility] at [facility] and confirmed pt is open with [facility] 3x/week for wound care needs. A: Pt who has MANNY caregivers at baseline and is open with [facility] 3x/week P: Pt likely to transport home via BLS with caregivers and resume [facility] 3x/week for wound care. CHATO Godinez
--- NOTE | 2016-11-17 10:20 | NUR ---
[facility] provided access to [facility] per order
[2016-11-17] MEDS: Ascorbic Acid 500 mg Tablet PO SCH (11:08)
[2016-11-17] MEDS: Phenytoin 100 mg ER Capsule PO SCH ×2 (11:08→20:34)
--- NOTE | 2016-11-17 12:35 | NUR ---
ABI: Spoke with HISTORIOGRAPHY PROFESSOR and patient is unable to sign own ABI. HISTORIOGRAPHY PROFESSOR is going to follow up with father today for signature.
[2016-11-17] MEDS ORDERED: LORazepam 0.5 mg Tablet PO PRN (14:15)
--- NOTE | 2016-11-17 14:25 | PCM.PNMED ---
Subjective Date of Service Nov 17, 2016 Subjective Yesterday afternoon patient had become increasingly lethargic in addition demonstrated profound hypotension and downward trending pulse is. Repeat VBG demonstrated a worsening acidosis and it was thought patient declined could at least be partially explained by poor ventilation given absence of other obvious causes. Trial of Trilogy was seen and seemed only option to improve the patient 's ventilatory status and diminishing his respiratory acidosis. Patient agreed to try this but continued to stated made him extremely anxious and was not traveling to leave it on and requested something for anxiety, Ativan was provided which successfully treated patient's anxiety but left him highly sedate nearly unconscious for a number of hours following application of Trilogy. Nonetheless Trilogy device did appear to improve patient's oxygenation in addition blood pressure and pulse were improved significantly. In the evening patient became became aware and stated he was feeling much better than he had prior, he slept well overnight and again this morning reiterates he is feeling much improved since his time on the Trilogy machine. Exam Vital Signs Vital Sign - Last Date Time Temp Pulse Resp B/P Pulse Ox O2 Delivery O2 Flow Rate FiO2 11/17/16 12:24 36.3 44 16 152/57 95 4.00 11/17/16 08:31 Supplement Oxygen Intake and Output 11/16/16 11/16/16 11/17/16 Cumulative From/Thru 15:00 23:00 07:00 11/14/16 09:45 - 11/17/16 06:21 Intake Total 800 ml 345 ml 2781 ml Output Total 1300 ml 1450 ml 4775 ml Balance -500 ml -1105 ml -1994 ml Intake Oral 300 ml 345 ml 2281 ml IV Total 500 ml 500 ml Output Urine Total 1300 ml 1450 ml 4775 ml # Bowel Movements 0 1 Exam General: Alert, Oriented X3, Cooperative, No Acute Distress, significantly improved level of consciousness from one day prior Mouth: Mucous Membranes Dry Nose: Trilogy device in place Neck: Neck is large obese with small mouth. Supple without masses Chest & Lungs: Coarse breath sounds Cardiovascular: Regular Rhythm with rate in 40s Abdomen: Non-tender, Non-distended, Other (obese) Extremities: No cyanosis/clubbing/edma bilat, paralyzed and cool to touch Neurological: Grossly Neurologically Intact, Other (something chronic neurologic deficits due to pre-existing paraplegia. Sacral and thoracic decubiti are sealed with wound VAC IVs and Medications Medications Reviewed: Medications were reviewed in detail Lab and Diagnostics Result Diagram: 11/14/16 1015 11/14/16 1015 Assessment & Plan 56-year-old paraplegic male past medical history significant for obesity hypoventilation syndrome in addition to obstructive sleep apnea presenting with acute onset of hallucinations and impaired mental status as noted by father while home aggressive over past few weeks admitted for further evaluation of profound bradycardia and respiratory impairment with hypoventilation: #. Severe bradycardia - Patient was placed on hospital for monitored on continuous telemetry - He is currently not hemodynamically stable profoundly hypotensive with blood pressures ranging as low as a map of below 30 - Cardiology has been consulted and Dr. Martinez continue to appreciate his recommendations; given patient's current abilities it does not seem to feel patient is a good candidate for pacer as such has declined medical therapy such as atropine for bradycardia which he notes only be useful for short period of time. - Etiology is unclear, may be multifactorial, certainly presence of acidosis may be contributing to impaired cardiac function, this has been noted to be worsening on today's venous blood gas with continued noncompliance with Trilogy. - Condition has demonstrated significant improvement as you situation machine and likely at least partial correcting of acidosis - Positive interventions may include cardiac pacemaker however given patient's decubiti and frequent infections this will be done with extreme discretion. - Continue to monitor, rating further recommendations and cardiology requiring need for intervention or possible continued watchful waiting. #. Obstructive sleep apnea/obesity hypoventilation syndrome/hypercarbia/ hallucinations - Certainly hypercarbia in the setting of poorly treated pulmonary diseases could account for altered mentation and hallucinations. - Patient's parents have brought it is truly machine which was fitted by respiratory therapy, over last night patient again refused machine saying is too uncomfortable. . - Patient has been strongly encouraged to utilize breathing machine which may provide significant benefit and removal of carbon dioxide and yarsani of acid-base balance - We will continue to monitor patient on continuous telemetry addition to continuous pulse oximetry, respiratory function certainly appears impaired impaired at this time, and patient's level sedation is not his baseline. - Patient's anxiety created due to face mask is his main reason for noncompliance. We suggested he receive a medication for anxiety prior to applying Trilogy machine with proper face mask and he agrees to try this. His only request is that appears strong anxiety medication. - Patient benefited significantly from coadministration of anxiety medication while receiving Trilogy therapy. I would assume patient's unresponsiveness following receiving of Ativan was multifactorial at least partially due to patient's extreme exhaustion , but he nonetheless has a sensitivity to Ativan and appears 1 mg dosages to high . We will try patient on half milligram dose this evening prior to administration closure device which will ideally be left on through the night . If this proves inadequate dosage which patient can both tolerate without becoming completely unresponsive but also adequately controls his anxiety this may be appropriate for discharge . - Currently without knowing adequate dosage of Ativan to use patient will either return home and be unable to wear Trilogy device which could be due to a repeat of his acidosis, and subsequent decompensation, O2 much may repeat him overly sedate with an unstable airway. For this reason continued observation is thought to be needed during medication titration for patient safety. 3. Bacteriuria - Patient has extensive history of frequent urinary tract infections, previously noted to have a highly resistant strain of Acetobacter - It is not yet clear patient has clinical signs of cystitis, or this represents asymptomatic bacteriuria - Urine culture remains pending no other evidence of acute infection noted. -Continue to to refrain from antibiotic therapy at this time pending culture results. - Infectious disease will be signing off we have appreciated recommendations greatly 4. Fourth degree decubiti of bilateral initial tuberosities and addition to thoracic decubiti/ Quadriplegia/chronic decubiti - Patient with irritated frequently to prevent worsening of chronic decubitus ulcer - Physical therapy consulted for passive range of motion - We will discuss case or social work she may benefit from alterations to home hospital bed to assist in mobility and strength. - There is no evidence of active infection at this time of decubitus ulcers wound care we consulted further evaluation dressing changes. Disposition: Patient is in need of continued medical observation for titration of Trilogy and management of comorbid anxiety spectrum disorder. Given profound bradycardia and hypotension he remains medically unstable for home discharge at this time. Pain Evaluation: Adequate Pain Control GI Prophylaxis: Not indicated VTE Mechanical Devices: Intermittant Pneumatic CD Resuscitation Status: DNR/DNI:Do Not Resuscitate/Intubate Time spent 35 minutes Jaison Johnson DO Nov 17, 2016 14:25
--- NOTE | 2016-11-17 14:42 | ABG ---
DateTimeAnalyzed 14:33:59 -_ pH ____7.412 - 7.350 7.450 pCO2 ___55.7__ -mmHg 35.0 45.0 pO2 ___48.4__ -mmHg 69.0 116 HCO3- ___35.4__ -mmol/L 22.0 26.0 ABE ____9.6__ -mmol/L tHb ___13.2__ -g/dL O2Hb ___83.7__ -% COHb ____3.2__ -% 1.5 MetHb ____0.3__ -% sO2 ___86.8__ -% FIO2 ___28.0__ -% Drawn By [facility] - Date/Time Notified____ 14:42:00 -_ Oxygen Device 1 nasal cannula - Notified By [facility] - Notified Whom [facility], Jaison DO - K+ ____4.5__ -mmol/L tO2 ___15.5__ -Vol% Regan test N/A -
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
--- NOTE | 2016-11-17 15:33 | PCM.PALLBR ---
Palliative Care Recommendation Summary of palliative recommendations: -Symptom management (Pain/other) Claustrophobia and anxiety around Trilogy at this point well controlled with lorazepam. Dr. Johnson plans on trying a lower dose particularly nocturnal for trial of better ventilation support. Decubitus ulcers according to Blake of wound center they have improved remarkably with Clinitron. Hypoventilation syndrome aggravated by obesity with obstructive sleep apnea. Cardiac dysrhythmia possibly causing altered mentation-all possibly tied to profound hypoventilation. 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 - At family's request, ordered physical therapy as well as the bowel disimpaction program -DPOA/Advanced Directives/POLST-father states DURABLE POWER OF [employer]ATING SUPERVISOR for healthcare, DNR/DNI. Reviewed again today with patient and family. Not ready to transition to hospice/comfort care -Family/emotional support-strong support from his parents as well as his friends Additional Medical Diagnoses with primary management by Hospitalist team include : Dysrhythmia with sinus pauses and profound bradycardia Hypotension now improved Hypoventilation syndrome Decubitus ulcers Question of pulmonary edema on chest x-ray which may also relate to hypoperfusion Altered mental status difficult to assess at this time sedation recent history of AMS and hallucinations Problems: (1) Asystole Assessment & Plan: Telemonitor showed 6 seconds asystole last night. Typically the patient would need a permanent pacemaker but given his severe comorbidity and quality of life, a pacemaker will not improve his quality of life. Given his history of internal device infections another recurrent infections, he is definitely monitor high risk for pacemaker infection which in itself carries increased morbidity and mortality which this was made known to the patient and the patient's father. But I also mentioned to the patient and the patient's father that he is at high risk for cardiac arrest and if no pacemaker is implanted. At this time this patient is DNR/DNI and he has made it known to us that he does not want any pacemaker and the patient's father somewhat agrees as well. Patient's father will like to discuss with his son about the pacemaker. I also offered palliative care consult and the patient 's father's open to this. Status: Acute ICD Code: I46.9 (2) Severe sinus bradycardia Status: Acute ICD Code: R00.1 (3) QUADRIPLEGIA, UNSPECIFIED Onset Date: 07/11/2012 Status: Chronic ICD Code: 344.00 (4) Stage IV pressure ulcer Onset Date: 07/11/2012 Status: Acute ICD Code: L89.94 (5) Urinary tract infection Onset Date: 06/02/2014 Status: Chronic ICD Code: N39.0 (6) OBESITY, NOS Onset Date: 07/11/2012 Status: Chronic ICD Code: 278.00 End of Life Preferences DNR/DNI Goals of Care Return home and continue aggressive attempts at rehabilitation Disposition Goal is to get back home with support of his caregivers and parents Resuscitation Status Resuscitation Status: DNR/DNI:Do Not Resuscitate/Intubate POLST Updates/Changes POLST Discussed with: Patient (based on last admission), Health Care Agent ( [employer]POA[employer]) (father) . Pain: None Total time 45 minutes; >50% face to face with patient and family, providing counselling regarding plans and recommendations, and in care coordination with his medical teams. All the above total time, 20 minutes counseling for advanced care planning with the patient and his family, reviewing in detail their treatment wishes, advanced directive wishes, etc. Palliative Brief Note Date of Service Nov 17, 2016 . Returned to reevaluate patient. Prior to visiting, reviewed his updated records in the EMR in detail, spoke with his bedside nurse (before and after my visit) and with his medicine team. On my arrival, patient is lying in his Clinitron bed, awake and alert. Seems oriented. His mother, father and sister are at bedside and I spoke with them at length as well. They had a couple of concerns about his treatment. They requested daily physical therapy in bed so that he can retain what muscle tone he has, improve the circulation, etc. They also noted that he requires daily manual rectal disimpaction. He does not and will not take any stool softeners or other agents because in the past they have caused incontinence and/or diarrhea. Patient's father says that this must be done daily and already was missed yesterday and so they felt very strongly it needed to happen today CAMERON. Otherwise, reviewed the discussions that the patient and family had with Dr. Cazares yesterday. Answered further questions they had. They remain committed to his returning home to their care. They also have a professional caregiver who lives in a detached apartment at home. All note that he would want to return to the hospital for further care if he deteriorated. In short, not a candidate for hospice at this time. Did review advance directive wishes with them again, though, and all agree that he remains DO NOT RESUSCITATE/DO NOT INTUBATE, though they would want all medical care short of those terminal interventions. On exam, and obese, pale, gentleman lying in bed. Awake and alert and appears to be in no distress. He says is quite comfortable. Denies shortness of breath or other worrisome symptoms. Head and neck exam without acute findings. Lungs clear anterolaterally, heart sounds regular with rate around 50/sinus bradycardia, abdomen obese soft and nontender. Lab and imaging studies reviewed. Esteban Magaña MD Nov 17, 2016 15:33
--- NOTE | 2016-11-17 18:01 | NUR ---
Wound care/Trilogy The pt was seen by wound care today, and per Blake, the wound vac will be changed tomorrow. The pt is tolerating the trilogy better, but still becomes anxious with it on. has ordered 0.5 mg PO ativan PRIOR to placing the trilogy on.
[2016-11-17] MEDS ORDERED: LORazepam 0.5 mg Tablet PO SCH (21:00)
[2016-11-18 00:12] VITALS: BP 121/76; PULSE 50; RESP 16; O2SAT 97
[2016-11-18] MEDS: Heparin 5,000 Unit/mL Inj SUBQ SCH ×2 (01:39→08:54)
[2016-11-18 04:48] VITALS: PULSE 46
[2016-11-18 05:56] VITALS: BP 128/73; PULSE 46; RESP 16; O2SAT 97
--- NOTE | 2016-11-18 06:27 | NUR ---
Trilogy Pt had 0.5 mg PO ativan at HS. RT in to place trilogy machine on around 2129. Pt's oxygen sat in the 90's. Pt then took off machine around 0100, RT in to assess pt, pt stating he did not want to wear it. RT placed pt on 3.5 L O2 while not on trilogy. Trilogy placed back on at 0330, oxygen sat remains in the high 90's. Pt sleeping in bed this shift, call light within reach, frequent rounding.
[2016-11-18 08:09] VITALS: PULSE 46
--- NOTE | 2016-11-18 08:41 | PCM.DC.MED ---
Discharge Summary Date of Service Nov 18, 2016 Dates of Hospitalization Date of Hospital Admission Nov 14, 2016 at 12:58 Date of Discharge: Nov 18, 2016 Providers: Admitting Physician: Jaison Johnson DO Primary Care Physician: Saul Kendrick MD Attending Physician: Jaison Johnson DO Diagnosis at Time of Discharge Diagnosis at Time of Discharge #. Severe bradycardia #. Obstructive sleep apnea/obesity hypoventilation syndrome/hypercarbia/ hallucinations 3. Bacteriuria 4. Fourth degree decubiti of bilateral initial tuberosities and addition to thoracic decubiti/ Quadriplegia/chronic decubiti Consultations Palliative Care Infectious Disease- Dr Michael Brief History 56-year-old paraplegic male past medical history significant for obesity hypoventilation syndrome in addition to obstructive sleep apnea presenting with acute onset of hallucinations and impaired mental status as noted by father while home aggressive over past few weeks. Patient is prescribed and has home Trilogy machine in-house for above-mentioned pulmonary disorders however father notes over past few months he has repeatedly refused to wear the machine stating is uncomfortable and affects his sleep. Additionally approximately 2 months ago he has hospital but was changed to a Clinitron was hoped to aid in the healing of his chronic gluteal ulcerations. He will may have had some benefit in this regard, it was not fitted with a trapeze noise previous bed was in this is led to further impairment of his mobility given he has no ability to lift himself from bed spends more of the day lying in previous. Cervical fracture in July 2016 additionally contributed to patient's limited mobility . During my evaluation of patient he is able to give clear history of recent events but also endorses some seemingly paranoid thoughts such as his Trilogy machine is emitting exhaust and is Clinitron his releasing particles in the air which fill his room at night and he feels are getting into his lungs. He does not endorse active hallucinations during my examination on hospital for bradycardia been transferred for emergency department. He intermittently falls asleep during evaluation was easily arousable, nonetheless his eyelids appear heavy injured throughout conversation. He denies any acute distress however denies any current shortness of breath is not expressing chest pain or palpitations. He is unaware of the bradycardia which has been persistent through his emergency room evaluation. Denies any recent fever or chills, has no other acute complaints at this time. Of note regarding recent medical history, patient was hospitalized from 10/16- for pneumonia and acinetobacter UTI. He was treated with IV antibiotics at that time and discharged on azithromycin to complete course . Case was discussed with Dr. Michael who knows patient well, and suggests O antibiotic therapy at this time pending further evaluation and culture results. Hospital Course #. Severe bradycardia - Patient was placed on hospital for monitored on continuous telemetry - He is currently not hemodynamically stable profoundly hypotensive with blood pressures ranging as low as a map of below 30 - Cardiology has been consulted and Dr. Martinez continue to appreciate his recommendations; given patient's current abilities it does not seem to feel patient is a good candidate for pacer as such has declined medical therapy such as atropine for bradycardia which he notes only be useful for short period of time. - Etiology is unclear, may be multifactorial, certainly presence of acidosis may be contributing to impaired cardiac function, this has been noted to be worsening on today's venous blood gas with continued noncompliance with Trilogy. - Condition has demonstrated significant improvement as you situation machine and likely at least partial correcting of acidosis - Positive interventions may include cardiac pacemaker however given patient's decubiti and frequent infections this will be done with extreme discretion. - Continue to monitor, rating further recommendations and cardiology requiring need for intervention or possible continued watchful waiting. Pt's heart rate was greatly improved with the improve ventilation provided by Triology machine. Pacemaker considered previously was certainly no longer indicated. PT DC'd home in hemodynamically stable condition. #. Obstructive sleep apnea/obesity hypoventilation syndrome/hypercarbia/ hallucinations - Certainly hypercarbia in the setting of poorly treated pulmonary diseases could account for altered mentation and hallucinations. - Patient's parents have brought it is truly machine which was fitted by respiratory therapy, over last night patient again refused machine saying is too uncomfortable. . - Patient has been strongly encouraged to utilize breathing machine which may provide significant benefit and removal of carbon dioxide and evangelical of acid-base balance - We will continue to monitor patient on continuous telemetry addition to continuous pulse oximetry, respiratory function certainly appears impaired impaired at this time, and patient's level sedation is not his baseline. - Patient's anxiety created due to face mask is his main reason for noncompliance. We suggested he receive a medication for anxiety prior to applying Trilogy machine with proper face mask and he agrees to try this. His only request is that appears strong anxiety medication. - Patient benefited significantly from coadministration of anxiety medication while receiving Trilogy therapy. I would assume patient's unresponsiveness following receiving of Ativan was multifactorial at least partially due to patient's extreme exhaustion , but he nonetheless has a sensitivity to Ativan and appears 1 mg dosages to high . We will try patient on half milligram dose this evening prior to administration closure device which will ideally be left on through the night . If this proves inadequate dosage which patient can both tolerate without becoming completely unresponsive but also adequately controls his anxiety this may be appropriate for discharge . - Ativan has been very effect in controlling patient's anxiety and allowing home to tolerate application of Trilogy machine. IV administration proved overly sedating, but 0.5 mg did not appear to off significant enough relief. Will DC home with variable dose from 0.5-1mg Ativan PO HS prior to application of Trilogy machine to be titrated by patient and his father who will be staying with him on discharge. 3. Bacteriuria - Patient has extensive history of frequent urinary tract infections, previously noted to have a highly resistant strain of Acetobacter - It is not yet clear patient has clinical signs of cystitis, or this represents asymptomatic bacteriuria -Refrained from antibiotic therapy as pt asymptomatic, (+)urine culture result likely only colonization - Infectious disease agreed and signed off case prior to discharge. 4. Fourth degree decubiti of bilateral initial tuberosities and addition to thoracic decubiti/ Quadriplegia/chronic decubiti - Patient with irritated frequently to prevent worsening of chronic decubitus ulcer - Physical therapy consulted for passive range of motion - We will discuss case or social work she may benefit from alterations to home hospital bed to assist in mobility and strength. - There is no evidence of active infection at this time of decubitus ulcers wound care we consulted further evaluation dressing changes. Pt will continue to be managed by wound care on home discharge. No acute changes. Exam Vital Signs (Last) Date Time Temp Pulse Resp B/P Pulse Ox O2 Delivery O2 Flow Rate FiO2 11/18/16 08:09 46 11/18/16 05:56 36.2 16 128/73 97 4.00 11/17/16 19:45 Supplement Oxygen CPAP/BIPAP Exam General: Alert, Oriented X3, Cooperative, No Acute Distress, significantly improved level of consciousness since admission Mouth: Mucous Membranes Dry Nose: Trilogy device in place, removed during my exam by patient. Neck: Neck is large obese with small mouth. Supple without masses Chest & Lungs: Coarse breath sounds Cardiovascular: Regular Rhythm with rate in 40s Abdomen: Non-tender, Non-distended, Other (obese) Extremities: No cyanosis/clubbing/edema bilat, paralyzed and cool to touch Neurological: Grossly Neurologically Intact excepting chronic paralysis. Test 11/14/16 10:15 11/14/16 11:00 11/14/16 11:11 11/14/16 15:56 White Blood Count 6.6th/mm3 (3.8-10.1) Red Blood Count 4.56mil/mm3 (4.40-5.80) Hemoglobin 12.6g/dL (13.8-17.2) Hematocrit 39.1% (41.0-50.0) Mean Corpuscular Volume 85.7fL (81-100) Mean Corpuscular Hemoglobin 27.6pg (27.0-35.0) Mean Corpuscular Hemoglobin Concent 32.2% (32.0-37.0) Red Cell Distribution Width 14.5% (12.3-15.4) Platelet Count 133bil/L (150-400) Neutrophils (%) (Auto) 77.0% (40-74) Lymphocytes (%) (Auto) 10.8% (14-46) Monocytes (%) (Auto) 8.1% (4-12) Eosinophils (%) (Auto) 3.7% (0-5) Basophils (%) (Auto) 0.2% (0-3) D-Dimer < 0.50mg/L FEU (<0.50) Sodium Level 136mEq/L (134-144) Potassium Level 4.1mEq/L (3.5-5.2) Chloride Level 100mEq/L (97-108) Carbon Dioxide Level 27mmol/L (18-29) Blood Urea Nitrogen 11mg/dL (6-24) Creatinine < 0.30mg/dL (0.76-1.27) Estimat Glomerular Filtration Rate 330mL/min (>59) Glucose Level 196mg/dL (60-99) Lactic Acid Level 1.7mmol/L (0.4-2.0) Calcium Level 8.5mg/dL (8.5-10.1) Magnesium Level 1.8mg/dL (1.6-2.6) Total Bilirubin 0.3mg/dL (0.0-1.2) Aspartate Amino Transf (AST/SGOT) 10U/L (0-50) Alanine Aminotransferase (ALT/SGPT) 9U/L (0-44) Alkaline Phosphatase 85U/L (25-150) Pro-B-Type Natriuretic Peptide 168.4pg/mL (0-210) Total Protein 6.9g/dL (6.4-8.4) Albumin 3.5g/dL (3.4-5.0) Hold Reinoso Top Tube Received (Received) Urine Color Straw (YELLOW) Urine Appearance Cloudy (CLEAR,HAZY) Urine pH 6.0 (5.0-8.0) Urine Specific [place] 1.015 (1.003-1.035) Urine Protein Negativemg/dL (NEG,TRACE) Urine Glucose (UA) Negativemg/dL (NEGATIVE) Urine Ketones Negativemg/dL (NEGATIVE) Urine Occult Blood Small (NEGATIVE) Urine Nitrite Negative (NEGATIVE) Urine Bilirubin Negative (NEGATIVE) Urine Urobilinogen Normalmg/dL (NORMAL) Urine Leukocyte Esterase Large (NEGATIVE) Urine RBC 0-2/hpf (0-2) Urine WBC 6-10/hpf (0-5) Urine Epithelial Cells Occasional/hpf (NONE-MOD) Urine Crystals None seen (NONE SEEN) Urine Bacteria Many/hpf (NONE-FEW) Urine Hyaline Casts None/lpf (NONE) Urine Granular Casts None seen (NONE SEEN) Urine Waxy Casts None seen (NONE SEEN) Urine Red Blood Cell Casts None seen (NONE SEEN) Urine White Blood Cell Casts None seen (NONE SEEN) Urine Mucus None seen (None Seen) Urine Trichomonas None seen (NONE SEEN) Urine Yeast Moderate (NONE SEEN) Urinalysis Comment None Urine Culture Reflexed Indicated Phenytoin (Dilantin) Level 13.5uG/mL (10.0-20.0) Test 11/14/16 18:50 Troponin T < 0.010ug/L (0.0-0.011) C-Reactive Protein 1.3mg/dL (0.0-0.5) Procalcitonin 0.04ng/mL (0.00-0.08) Microbiology Results Microbiology CHAD CULT URINE Final 11/17/16-07 Organism 1 CARBAPENEM RESISTANT ISOLATE U COLONY COUNT/QUANTITY >100,000 CFU/ml Organism 2 ENTEROCOC FAECALIS - (GROUP D) U COLONY COUNT/QUANTITY >100,000 CFU/ml CARBAPENEM RESISTANT ISOLATE Acinetobacter baumanii Discharge Medications Discharge Medications Ascorbic Acid (Vitamin C) 500 Mg Capsule.er 500 MG PO DAILY (Reported) Aspirin (Aspirin) 325 Mg Tablet 325 MG PO DAILY (Reported) Baclofen (Baclofen) 10 Mg Tablet 10 MG PO TID (Reported) Multivitamin (Multi Vitamin Daily) 1 Each Tablet 1 EACH PO DAILY (Reported) Phenytoin Sodium Extended (Phenytoin Sodium Extended) 100 Mg Capsule 200 MG PO noon (Reported) Phenytoin Sodium Extended (Phenytoin Sodium Extended) 100 Mg Capsule 300 MG PO HS (Reported) Followup Plan Disposition: Home in stable condition Follow-up plan Continue to use your Trilogy machine as much as possible in overnight. Ativan prescribed to aid in your anxiety, you may take 1 or 2 tablets as needed for this. Discharge Diet: No restrictions Discharge Activity: No restrictions Follow-up Provider: Saul Kendrick MD Follow-up with PCP in: 2 weeks Time spent 40 minutes Jaison Johnson DO Nov 18, 2016 08:41
[2016-11-18] MEDS ORDERED: LORA0.5T PO (08:47)
[2016-11-18] MEDS ORDERED: BACL10TA PO ×2 (08:49)
--- NOTE | 2016-11-18 08:49 | PCM.DIMED ---
Discharge Instructions Date of Service Nov 18, 2016 Dates of Hospitalization Nov 14, 2016 at 12:58 Discharge Diagnosis Discharge Diagnosis #. Severe bradycardia #. Obstructive sleep apnea/obesity hypoventilation syndrome/hypercarbia/ hallucinations 3. Bacteriuria 4. Fourth degree decubiti of bilateral initial tuberosities and addition to thoracic decubiti/ Quadriplegia/chronic decubiti Diet Discharge Diet: No restrictions Activity Discharge Activity: No restrictions Patient Instructions Follow-up plan Continue to use your Trilogy machine as much as possible in overnight. Ativan prescribed to aid in your anxiety, you may take 1 or 2 tablets as needed for this. Follow-up Provider: Saul Kendrick MD Follow-up with PCP in: 2 weeks Jaison Johnson DO Nov 18, 2016 08:49
--- NOTE | 2016-11-18 09:18 | NUR ---
Called and scheduled ALS transport for Noon via [facility]. Patient will be picked up at NOON and is returning home. [facility] is aware of Trilogy and this is reasoning for ALS. PCS form completed and given to MANAGER FASHION. Updated MANAGER FASHION
--- NOTE | 2016-11-18 09:23 | NUR ---
Father's concerns Pt's father, Marc, upset this AM and stating, "I am just disgusted with this place." Per father, pt has not had "a single bowel movement since he came in, you nurses are refusing to do it." Per documentation, bowel program done on 11/15. Per report this AM, pt refused bowel program yesterday as well as last night and req it be done this AM between 10-11am. When this was mentioned, pt agreed that he had been refusing "because I didn't want to get off schedule." Pt's father appeared calmer after this discussion. Addendum: 11/18/16 at 1238 by NICK MIXON RN Bowel program done this AM with effective results.
--- NOTE | 2016-11-18 09:26 | NUR ---
Social Work: Discharge Data: Pt is on day 4 of hospitalization. EMR reviewed. D/C orders are in. CRIMINAL JUSTICE LAWYER met with pt and father at bedside, ALS transportation has been set up by UR specialist for 12:00noon today. CRIMINAL JUSTICE LAWYER explained that ALS transportation cannot be preauthorized by their insurance, pt stated understanding. CRIMINAL JUSTICE LAWYER notified [facility], access previously given. No other d/c planning needs identified at this time. CRIMINAL JUSTICE LAWYER will continue to follow if needs arise. Assessment: Pt with caregiving at baseline. Plan: Pt will d/c home via ALS transportation at 12:00noon today with resume [facility] for RN. No other d/c planning needs identified at this time. CRIMINAL JUSTICE LAWYER will continue to follow if needs arise. CHATO Palma
[2016-11-18 10:18] VITALS: BP 94/51; PULSE 50; RESP 16; O2SAT 92
--- NOTE | 2016-11-18 11:20 | NUR ---
Wound Note Patient seen for wound care and NPWT dressing change at left ischium. Gricelda seal used for creases around ischial ulcer, black foam was placed deeply and a good seal was attained at 150 mmhg. Converted to home going NPWT machine and charging cord sent with patient. Right ischial wound was cleaned with gauze and saline and repacked with moist 2x2 gauze. Thoracic wound was cleaned with saline, protected with 2 layers of duoderm and then placed a saline moist aquacell ag dressing in wound bed and covered with adhesive foam dressing. Patient will continue with nursing and clinitron bed at home. Patient may benefit from being up in sitting for 20-30 mins 2-3 times a day if resources are available to try to maintain or improve respiratory function. Patient to wfollow up at wound center in 1-2 weeks.
[2016-11-18] MEDS: Phenytoin 100 mg ER Capsule PO SCH (11:22)
[2016-11-18] MEDS: Ascorbic Acid 500 mg Tablet PO SCH (11:23)
--- NOTE | 2016-11-18 12:38 | NUR ---
DISCHARGE Pt discharged this morning at 1215, off unit via transport stretcher. Pt's wound vac and drsgs changed prior to discharge. Trilogy sent home with pt's father, Marc. Pt A&O, vitals stable, afebrile, denies any pain/discomfort. IV dc'd intact, all belongings returned. All instructions for medications, prescriptions, follow up, wound care and activity reviewed with pt who reports understanding. Script for PRN Lorazepam sent with pt who states his dad will fill it today.
== END 2016-11-18 12:39 | disposition home health service (06) | DRG 308 ==
LOC: EDUNIT# 09:38 → EDBD 09:38 → SED 09:38 → MPC 12:58
PROVIDERS: ADMIT Family Medicine; ATTEND Family Medicine
PROC: 4A033R1 Measurement of Arterial Saturation, Peripheral, Percutaneous Approach (ICD-10-PCS; principal; 2016-11-14)
DX: R00.1 Bradycardia, unspecified (principal); G82.54 Quadriplegia, C5-C7 incomplete; L89.304 Pressure ulcer of unspecified buttock, stage 4; E66.2 Morbid (severe) obesity with alveolar hypoventilation; E87.2 Acidosis; Z87.440 Personal history of urinary (tract) infections; Z68.34 Body mass index [BMI] 34.0-34.9, adult; V19.9XXS Pedal cyclist (driver) (passenger) injured in unspecified traffic accident, sequela

== ENCOUNTER 2017-01-28 09:52 | Observation (INO) | payer MEDICARE, MEDICAID ==
[2017-01-28] VITALS (10 sets, daily range): BP systolic 109–168; BP diastolic 51–82; PULSE 36–44; RESP 13–18; O2SAT 82–96
[~2017-01-28] VITALS: Ht 170.2 cm; Wt 116.0 kg
[~2017-01-28 09:52] MED LIST changes: +LORA0.5T PO
--- NOTE | 2017-01-28 09:52 | ED.REPORT ---
HPI-General Illness Date of Service Jan 28, 2017 ED Provider: Joshua Casey MD Patient is a 56 year old male with a history of quadriplegia, C5-C6 spinal fusion and hospitalization three months ago for severe bradycardia who presents to the ED via EMS due to an altered level of consciousness. Per the patient's group art supervisor, the patient's heart rate was in the 20-30's and then he became unresponsive for a few minutes. Upon EMS arrival the patient had regained consciousness but was confused. En route, the patient's GCS was 15, his blood pressure was stable in the 140's and his O2 sat was down in the high 80's until he received oxygen, which raised it to 94%. The patient also had a heart rate down in the 40's yesterday but refused to come to the ED. He denies any pain or shortness of breath at this time. Nursing Notes Stated Complaint: ALTERED/LOC Nursing Notes Reviewed: Yes Allergies: Coded Allergies: No Known Drug Allergies (Verified Allergy, Unknown, 10/16/16) ONLY ALLERGIC TO DETERGENT PERFUME; NO DRUG ALLERGIES PER PATEINT Uncoded Allergies: PERFUME IN DETERGENT (Adverse Reaction, Severe, RED RASH, 07/27/12) Scheduled Ascorbic Acid (Vitamin C) 500 Mg Capsule.er 500 MG PO DAILY Aspirin (Aspirin) 325 Mg Tablet 325 MG PO DAILY Baclofen (Baclofen) 10 Mg Tablet 5 MG PO DAILY Baclofen (Baclofen) 10 Mg Tablet 15 MG PO HS Multivitamin (Multi Vitamin Daily) 1 Each Tablet 1 EACH PO DAILY Phenytoin Sodium Extended (Phenytoin Sodium Extended) 100 Mg Capsule 200 MG PO noon Phenytoin Sodium Extended (Phenytoin Sodium Extended) 100 Mg Capsule 300 MG PO HS Scheduled PRN Lorazepam (Lorazepam) 0.5 Mg Tablet 0.5-1 MG PO HS PRN PRN For Anxiety General Time Seen by MD: 09:50 Chief Complaint Altered mental status Hx Obtained From: Patient, EMS Arrived By: Ambulance Sudden in Onset?: Yes Onset Occurred: Just prior to arrival Symptom Duration: 1 - 15 minutes Severity: Current: No pain currently Recent Healthcare: Recent doctor visit, Recent hospitalization Similar Sx Previous: Yes Past Medical History Past Medical History Incomplete C7 quadriplegia Mild sinusitis Seizure disorder Morbid obesity Recurrent bladder infections stage IV bilateral ischial decubitus ulcers Past Surgical History Multiple buttock decubitus ulcer debridement Baclofen pump Debridement of right ischial pressure sore with right gluteal myocutaneous flap closure. Smoking History Never Smoker Social History Alcohol Use: Denies alcohol use Drug Use: Denies drug use Other Social History: Good social support, Lives alone Ambulatory Status Wheelchair Review of Systems Full Review of Systems Constitutional: Denies: Chills, Fever Respiratory: Denies: Non-productive cough, Shortness of breath Cardiovascular: Denies: Chest pain GI: Denies: Vomiting Skin: Denies Itching Neurologic: Reports: Change LOC, Confusion, Denies: Headache Complete sys rev & neg: except as marked. Physical Exam Vital Signs Vital Signs Date Time Temp Pulse Resp B/P Pulse Ox O2 Delivery O2 Flow Rate FiO2 01/28/17 11:42 38 148/70 94 Nasal Cannula 2 01/28/17 10:50 39 13 94 Nasal Cannula 3 01/28/17 10:38 38 13 137/67 82 Nasal Cannula 3 01/28/17 09:53 35.7 43 17 168/82 95 Nasal Cannula 3 General/Constitutional: Awake, Alert Appearance / Presentation: Positive: Obese, morbidly quadriplegic, dramatically impaired function of upper extremities paralyzed from abdomen down Head / Eyes: Atraumatic, Normocephalic, PERRL, EOMI Respiratory / Chest: Atraumatic, Breath sounds NL, Breath sounds = bilat, No respiratory distress Cardiovascular: Regular rhythm, Heart sounds NL Heart Rate / Rhythm: Positive: Bradycardia Abdomen: Atraumatic, Soft, Non-tender unable to examine due to patient's body habitus Skin: No rash, Warm, Dry Neurologic: Oriented X3, Speech NL GCS 15 Psychiatric: Affect NL, Mood NL Interpretation & Diagnostics Lab Results Interpretation Result Diagram: 01/28/17 0950 01/28/17 0950 Test 01/28/17 09:50 01/28/17 10:00 White Blood Count 5.2th/mm3 (3.8-10.1) Red Blood Count 5.03mil/mm3 (4.40-5.80) Hemoglobin 13.9g/dL (13.8-17.2) Hematocrit 42.4% (41.0-50.0) Mean Corpuscular Volume 84.3fL (81-100) Mean Corpuscular Hemoglobin 27.6pg (27.0-35.0) Mean Corpuscular Hemoglobin Concent 32.8% (32.0-37.0) Red Cell Distribution Width 15.4% (12.3-15.4) Platelet Count 106bil/L (150-400) Neutrophils (%) (Auto) 72.5% (40-74) Lymphocytes (%) (Auto) 16.0% (14-46) Monocytes (%) (Auto) 8.2% (4-12) Eosinophils (%) (Auto) 2.9% (0-5) Basophils (%) (Auto) 0.2% (0-3) Sodium Level 135mEq/L (134-144) Potassium Level 4.2mEq/L (3.5-5.2) Chloride Level 97mEq/L (97-108) Carbon Dioxide Level 27mmol/L (18-29) Blood Urea Nitrogen 10mg/dL (6-24) Creatinine < 0.30mg/dL (0.76-1.27) Estimat Glomerular Filtration Rate 330mL/min (>59) Glucose Level 93mg/dL (60-99) Calcium Level 8.4mg/dL (8.5-10.1) Total Bilirubin 0.3mg/dL (0.0-1.2) Aspartate Amino Transf (AST/SGOT) 12U/L (0-50) Alanine Aminotransferase (ALT/SGPT) 9U/L (0-44) Alkaline Phosphatase 82U/L (25-150) Total Protein 7.4g/dL (6.4-8.4) Albumin 3.5g/dL (3.4-5.0) Urine Color Yellow (YELLOW) Urine Appearance Cloudy (CLEAR,HAZY) Urine pH 7.0 (5.0-8.0) Urine Specific [place] 1.021 (1.003-1.035) Urine Protein Tracemg/dL (NEG,TRACE) Urine Glucose (UA) Negativemg/dL (NEGATIVE) Urine Ketones Negativemg/dL (NEGATIVE) Urine Occult Blood Moderate (NEGATIVE) Urine Nitrite Positive (NEGATIVE) Urine Bilirubin Negative (NEGATIVE) Urine Urobilinogen Normalmg/dL (NORMAL) Urine Leukocyte Esterase Large (NEGATIVE) Urine RBC 3-10/hpf (0-2) Urine WBC Packed/hpf (0-5) Urine Epithelial Cells Few/hpf (NONE-MOD) Urine Crystals Triple phosphate Urine Bacteria Many/hpf (NONE-FEW) Urine Hyaline Casts None/lpf (NONE) Urine Granular Casts None seen (NONE SEEN) Urine Waxy Casts None seen (NONE SEEN) Urine Red Blood Cell Casts None seen (NONE SEEN) Urine White Blood Cell Casts None seen (NONE SEEN) Urine Mucus None seen (None Seen) Urine Trichomonas None seen (NONE SEEN) Urine Yeast None (NONE SEEN) Urinalysis Comment None Urine Culture Reflexed Indicated ECG Interpretation ECG Interpretation: sinus bradycardia, rate 39 probable left atrial enlargement nonspecific intraventricular conduction delay Time: 10:16 Interpreted by: ED physician X-Ray Chest Interpretation Chest Xray Interpretation: IMPRESSION: Mild increased pulmonary vascular suggestive of edema. Left basal opacity is present possibly atelectasis, developing pneumonia or focal edema. Dictated by: Diana Burgess M.D. on 01/28/2017 at 10:14 Approved by: Diana Burgess M.D. on 01/28/2017 at 10:15 View: Portable, 1 view Interpretation / Wet Read by: Interpret - Radiologist Re-Eval/Medical Decision Time of Eval: 11:21 Re-Evaluation/Progress Note: Discussed results and plan for admit. Patient understands and agrees to plan. All questions were addressed. Consultation : Referral / Consult Name: Regan Perez MD Call Returned at: 12:01 Bilingual Research Interviewer: Agrees with eval, Agrees with plan, Accepts admit Counseled Regarding: Diagnosis, Lab results, Need for admission Discharge & Departure Primary Impression: Respiratory failure Chronicity: acute Respiratory failure complication: hypoxia Qualified Code : J96.01 - Acute respiratory failure with hypoxia Additional Impression: Bradycardia Disposition: ADMITTED TO HOSPITAL Discharge Condition All VS Reviewed: Yes Condition: Stable Referrals: Saul Kendrick MD (PCP) Jackelyn Attestation Portions of this note were transcribed by Natalie Agarwal. I, Dr. Casey personally performed the history, physical exam and medical decision-making; I reviewed and confirmed the accuracy of the information in the transcribed note. Signed by: Jackelyn Flores, 01/28/17 copies to: Saul Kendrick MD, Kirk H MD Jan 28, 2017 09:52 Carri Agarwal Jan 28, 2017 10:03
--- NOTE | 2017-01-28 10:16 | DRSVH ---
PROCEDURE: X-RAY CHEST ONE VIEW, PORTABLE ([id number]) INDICATIONS: bradycardia TECHNIQUE: One view of the chest was acquired. COMPARISON: [facility], CR, XR CHEST 1VW (PORTABLE), 11/14/2016, 10:33. FINDINGS: Surgical changes and devices: None. Lungs and pleura: Mild appearance of increased pulmonary vascularity. Slight appearance of left basil ar increased opacity is present. Mediastinum: Mediastinal contours appear normal. Heart size is normal. Bones and chest wall: No suspicious bony lesions. Overlying soft tissues appear unremarkable. IMPRESSION: Mild increased pulmonary vascular suggestive of edema. Left basal opacity is present poss ibly atelectasis, developing pneumonia or focal edema. Dictated by: Diana Burgess M.D. on 01/28/2017 at 10:14 Approved by: Diana Burgess M.D. on 01/28/2017 at 10:15
[2017-01-28 10:24] LABS: BASOPHILS % (AUTO) 0.2 % (0-3); EOSINOPHILS % (AUTO) 2.9 % (0-5); MONOCYTES % (AUTO) 8.2 % (4-12); Mean Corpuscular Hemoglobin 27.6 pg (27.0-35.0); Mean Corpuscular Volume 84.3 fL (81-100); NEUTROPHILS % (AUTO) 72.5 % (40-74); Platelet Count 106 bil/L (150-400)
[2017-01-28 11:14] LABS: APPEARANCE,URINE CLOUDY (CLEAR,HAZY); COLOR,URINE YELLOW (YELLOW)
[2017-01-28 11:15] LABS: OCCULT BLOOD,URINE MODERATE (NEGATIVE); UROBILINOGEN,URINE NORMAL (NORMAL)
[2017-01-28] MEDS ORDERED: Ondansetron 2 mg/mL 2 mL Inj IVPUSH PRN ×2 (12:15→13:40)
[2017-01-28] MEDS ORDERED: Alum-Mag Hydrox-Simeth 30 mL Suspension PO PRN ×2 (12:15→13:40)
[2017-01-28] MEDS ORDERED: PHN100C PO ×2 (12:52)
[2017-01-28] MEDS ORDERED: BACL10TA PO (12:52)
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
--- NOTE | 2017-01-28 13:18 | ABG ---
DateTimeAnalyzed 13:11:00 -_ pH ____7.326 - 7.350 7.450 pCO2 ___61.7__ -mmHg 35.0 45.0 pO2 ___71.6__ -mmHg 69.0 116 HCO3- ___31.3__ -mmol/L 22.0 26.0 ABE ____4.0__ -mmol/L -2.0 2.0 tHb ___13.7__ -g/dL 12.0 18.0 O2Hb ___91.2__ -% COHb ____2.0__ -% 0.0 1.5 MetHb ____1.1__ -% 0.4 1.5 sO2 ___94.1__ -% 25.0 FIO2 ___28.0__ -% Drawn By jmw - Date/Time Notified____ 13:18:00 -_ Liter_Flow ____2.0__ -L/min Oxygen Device 1 __CANNULA - Notified By jmw - Notified Whom DR CONNOR - B 757 -mmHg tO2 ___17.6__ -Vol% Regan test _Positive -
[2017-01-28] MEDS ORDERED: Polyethylene Glycol (PEG) 17 Gm Powder PO PRN (13:40)
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
[2017-01-28] MEDS: Heparin 5,000 Unit/mL Inj SUBQ SCH (16:58)
--- NOTE | 2017-01-28 17:26 | NUR ---
Refusal to wear Bipap Pt had been placed on Bipap which he tolerated for approximately 2 hours. Pt removed bipap and when RT and nursing staff tried to replace it he stated he did not want it back on. Pt was reapproached by this RN and continued to refuse to wear his bipap. Pt was explained the consequences of not wearing the Bipap including from cardiac arrest. Pt stated that "that's ok, I'm done". Charge Nurse present in room as witness. Pt is DNR/DNI. Pt placed on NC@ 4L. Vitals @ 1733 HR 39, RR 18, SPO2 86%, BP 123/54 Addendum: 01/28/17 at 1738 by DUSTY DURAN RN MD allen
[2017-01-28] MEDS ORDERED: HYDROmorphone 0.5 mg/0.5 mL iSecure Syringe IVPUSH PRN (18:30)
--- NOTE | 2017-01-28 20:17 | NUR ---
Case Management D: ANTONIO explained to pt and his father who is at bedside. Pt refuses to sign, stating he is not getting "good" care. ANTONIO annotated as "refused to sign" Copy of ANTONIO and Medicare self administered medication information given to pt/father. lifeguard notified of pt's complaint of not getting "good" care.
[2017-01-29] MEDS: Heparin 5,000 Unit/mL Inj SUBQ SCH ×2 (01:34→09:19)
[2017-01-29 03:06] VITALS: BP 111/54; PULSE 49; RESP 15; O2SAT 95
[2017-01-29 06:01] VITALS: PULSE 38
--- NOTE | 2017-01-29 06:09 | NUR ---
Care Pt. A/O, denies chest pain, SOB, or other generalized issues. Verbalized discontent with hospitalization and staff, refuses majority of care needs as offered. Encouraged, but declines use of BiPap for DEEJAY, placed on 4L o2 via NC to sustain Spo2 > 90%. Maintained q2hr. turn schedule, oral care offered. Indicates pain in neck, which he presumed was broken in recent months, W[employer]. C/O migraine TOMLIN, requested Tylenol (given 975mg) reported 1/10 pain after reassessment. VSS. Tele: Sinus zoë 30's to 40's. Report given to oncoming RN.
[2017-01-29 07:33] VITALS: BP 122/51; PULSE 46; RESP 16; O2SAT 96
[2017-01-29 09:11] VITALS: PULSE 46
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
--- NOTE | 2017-01-29 10:52 | NUR ---
TRANSPORT BLS transported for pt at 1400 through [facility]. RN, pt/family all updated and agreeable to plan. CHATO Fierro
[2017-01-29 11:15] VITALS: PULSE 68
[2017-01-29 12:19] VITALS: BP 148/79; PULSE 41; RESP 17; O2SAT 96
--- NOTE | 2017-01-29 13:09 | PCM.DIMED ---
Discharge Instructions Date of Service Jan 29, 2017 Dates of Hospitalization Jan 28, 2017 at 12:08 Discharge Diagnosis Discharge Diagnosis Bradycardia, stable Obesity hypoventilation syndrome with hypoxia and hypercarbia, stable. Acute on chronic respiratory failure with hypoxia and hypercarbia, stable Acute encephalopathy, resolved. Morbid obesity, pstable. Stage IV bilaterally gluteal decub ulcers , chronic Chronic seizure disorder, stable C5-C6 quadriplegia, chronic and stable Patient is DO NOT RESUSCITATE, DO NOT INTUBATE, confirmed with family and patient at time of admit. Diet Discharge Diet: Heart Healthy Activity Discharge Activity: No restrictions Call your provider Call your provider for: Fever or Chills, Shortness of breath Patient Instructions Patient Instructions Continue HH with wound and RN from [facility]. Regan Perez MD Jan 29, 2017 13:09
--- NOTE | 2017-01-29 13:21 | PCM.DC.MED ---
Discharge Summary Date of Service Jan 29, 2017 Dates of Hospitalization Date of Hospital Admission Jan 28, 2017 at 12:08 Date of Discharge: Jan 29, 2017 Providers: Admitting Physician: Regan Perez MD Primary Care Physician: Saul Kendrick MD Attending Physician: Regan Perez MD Diagnosis at Time of Discharge Diagnosis at Time of Discharge Bradycardia, stable Obesity hypoventilation syndrome with hypoxia and hypercarbia, stable. Acute on chronic respiratory failure with hypoxia and hypercarbia, stable Acute encephalopathy, resolved. Morbid obesity, pstable. Stage IV bilaterally gluteal decub ulcers , chronic Chronic seizure disorder, stable C5-C6 quadriplegia, chronic and stable Patient is DO NOT RESUSCITATE, DO NOT INTUBATE, confirmed with family and patient at time of admit. Consultations None Procedures XRay, CTs & MRIs CXR: IMPRESSION: Mild increased pulmonary vascular suggestive of edema. Left basal opacity is present possibly atelectasis, developing pneumonia or focal edema. Dictated by: Diana Burgess M.D. on 01/28/2017 at 10:14 Approved by: Diana Burgess M.D. on 01/28/2017 at 10:15 Invasive Procedures None Brief History This is a pleasant gentleman with a 27 year history of intermittent cervical quadriplegia. He lives at home alone but has a caregiver who apparently has been with him until today. He was noted yesterday to have bradycardia he declined coming in for evaluation. Today he was noted to have bradycardia and somnolence prompting a call to 911. His 20s and 30s. EMS did notice independent in a sinus bradycardia but no evidence of pauses. He also has morbid obesity and probable obesity hypoventilation syndrome. He is on a home for lesion unit presumably for obesity hypoventilation syndrome with intermittent compliance. The patient notes he has not been out of bed since August as he has had a lot of wound care issues with recurrent sacral and gluteal wounds. The patient denies any real new complaints. He denies any shortness of breath or recent cough. No fevers or chills. He denies recent change in his general feelings. He does not have sensation over most of his body. No change in his bowel habits. He does have a chronic suprapubic catheter. The patient has had a previous admission for severe bradycardia and palliative care had long discussions with him regarding end-of-life issues and at that time indicated DO NOT RESUSCITATE and DO NOT INTUBATE status. Today when asked about the same issues she gives very vague and differing answers. Apparently there is a lot of discussion about a pacemaker on the last admission at that point he admitted clear he was not interested in a pacemaker. We will continue to focus on optimizing his ventilation status and seen how his bradycardia response. Continue to explore these level care issues as well. Hospital Course Bradycardia, present on admission and active. This is partially chronic and likely also partially relates to his hypoventilation syndrome. Acute encephalopathy, present on admission and active. The patient may be hypercarbic and hypoxic. We will check an ABG and institute BiPAP. The patient is on a chronic nephrology at home. He is noted. Short time of observation to have chronic recurrent desaturations and apneas. Morbid obesity, present on admission Stage IV bilaterally she will decub ulcers present on admission and active. Wound consult Chronic seizure disorder, present on admission. Continue usual seizure medications C5-C6 quadriplegia, present on admission and active. Skin care. Patient is DO NOT RESUSCITATE, DO NOT INTUBATE, confirmed with family and patient at time of admit. Her course. This patient was admitted with ongoing bradycardia. He also had ongoing periods of apnea and hypoxia consistent with his probable sleep apnea as well as obesity hypoventilation syndrome. The patient has a home probably G but really does not use it consistently. He was placed on BiPAP but refuses this after a short time. The patient was noted to have desaturations while in the hospital as well as a persistent bradycardia. Long discussions with patient and patient's family regarding level of care are detailed in the company CPA note. In short patient is DO NOT RESUSCITATE, DO NOT INTUBATE and refuses pacemaker. He is happy to start new supplemental oxygen nasal cannula but really does not want to continue using BiPAP work religiously devices. The patient is a carbon dioxide retainer based on his blood gas with PCO2 of 62 and therefore we will attempt to discharge him on 1 L of oxygen. The patient and patient's family now that future efforts are likely futile given his long history of quadriplegia and progressive obesity of hypoventilation syndrome. We will resume home health services for his chronic wounds and wound care as well. Exam Vital Signs (Last) Date Time Temp Pulse Resp B/P Pulse Ox O2 Delivery O2 Flow Rate FiO2 01/29/17 12:19 36.6 41 17 148/79 96 Nasal Cannula 3.00 01/28/17 16:43 30 Exam Patient was seen and examined on the day of discharge Test 01/28/17 09:50 01/28/17 10:00 01/28/17 12:35 White Blood Count 5.2th/mm3 (3.8-10.1) Red Blood Count 5.03mil/mm3 (4.40-5.80) Hemoglobin 13.9g/dL (13.8-17.2) Hematocrit 42.4% (41.0-50.0) Mean Corpuscular Volume 84.3fL (81-100) Mean Corpuscular Hemoglobin 27.6pg (27.0-35.0) Mean Corpuscular Hemoglobin Concent 32.8% (32.0-37.0) Red Cell Distribution Width 15.4% (12.3-15.4) Platelet Count 106bil/L (150-400) Neutrophils (%) (Auto) 72.5% (40-74) Lymphocytes (%) (Auto) 16.0% (14-46) Monocytes (%) (Auto) 8.2% (4-12) Eosinophils (%) (Auto) 2.9% (0-5) Basophils (%) (Auto) 0.2% (0-3) Sodium Level 135mEq/L (134-144) Potassium Level 4.2mEq/L (3.5-5.2) Chloride Level 97mEq/L (97-108) Carbon Dioxide Level 27mmol/L (18-29) Blood Urea Nitrogen 10mg/dL (6-24) Creatinine < 0.30mg/dL (0.76-1.27) Estimat Glomerular Filtration Rate 330mL/min (>59) Glucose Level 93mg/dL (60-99) Calcium Level 8.4mg/dL (8.5-10.1) Total Bilirubin 0.3mg/dL (0.0-1.2) Aspartate Amino Transf (AST/SGOT) 12U/L (0-50) Alanine Aminotransferase (ALT/SGPT) 9U/L (0-44) Alkaline Phosphatase 82U/L (25-150) Total Protein 7.4g/dL (6.4-8.4) Albumin 3.5g/dL (3.4-5.0) Urine Color Yellow (YELLOW) Urine Appearance Cloudy (CLEAR,HAZY) Urine pH 7.0 (5.0-8.0) Urine Specific [place] 1.021 (1.003-1.035) Urine Protein Tracemg/dL (NEG,TRACE) Urine Glucose (UA) Negativemg/dL (NEGATIVE) Urine Ketones Negativemg/dL (NEGATIVE) Urine Occult Blood Moderate (NEGATIVE) Urine Nitrite Positive (NEGATIVE) Urine Bilirubin Negative (NEGATIVE) Urine Urobilinogen Normalmg/dL (NORMAL) Urine Leukocyte Esterase Large (NEGATIVE) Urine RBC 3-10/hpf (0-2) Urine WBC Packed/hpf (0-5) Urine Epithelial Cells Few/hpf (NONE-MOD) Urine Crystals Triple phosphate Urine Bacteria Many/hpf (NONE-FEW) Urine Hyaline Casts None/lpf (NONE) Urine Granular Casts None seen (NONE SEEN) Urine Waxy Casts None seen (NONE SEEN) Urine Red Blood Cell Casts None seen (NONE SEEN) Urine White Blood Cell Casts None seen (NONE SEEN) Urine Mucus None seen (None Seen) Urine Trichomonas None seen (NONE SEEN) Urine Yeast None (NONE SEEN) Urinalysis Comment None Urine Culture Reflexed Indicated Troponin T < 0.010ug/L (0.0-0.011) Discharge Medications Discharge Medications Ascorbic Acid (Vitamin C) 500 Mg Capsule.er 500 MG PO DAILY (Reported) Aspirin (Aspirin) 325 Mg Tablet 325 MG PO DAILY (Reported) Baclofen (Baclofen) 10 Mg Tablet 10 MG PO TID (Reported) Multivitamin (Multi Vitamin Daily) 1 Each Tablet 1 EACH PO DAILY (Reported) Phenytoin Sodium ER (Dilantin) 100 Mg Capsule 200 MG PO MORNING (Reported) Phenytoin Sodium ER (Dilantin) 100 Mg Capsule 300 MG PO QPM (Reported) As needed Lorazepam (Lorazepam) 0.5 Mg Tablet 0.5-1 MG PO HS PRN PRN For Anxiety Prescribed by: VESNA GARCIA DO Followup Plan Disposition: Home, with home health for wound and RN. Discharge Diet: Heart Healthy Discharge Activity: No restrictions Patient Instructions Continue HH with wound and RN from [facility]. Time spent 50 minutes Regan Perez MD Jan 29, 2017 13:20
--- NOTE | 2017-01-29 13:22 | PCM.ADCARE ---
Advance Care Planning Note Purpose of Encounter: To define level care and resuscitation wishes. Parties in Attendance: Mother, father, and patient Decisional Capacity: He is decisional Subjective: He is doing better on supplemental oxygen. He denies pain. Objective: Lungs are clear with normal effort and rate. Heart is regular without murmur gallop or rub. He is a partial quadriplegic with a C5-C6 level. Goals of Care Determinations: To further discuss and reinforced local care. To reassess resuscitation wishes. Plan: Patient declines pacemaker Patient declines Trilogy home ventilator Patient declines BiPAP ventilator. The patient accepts oxygen nasal cannula. Patient declines invasive procedures CODE STATUS: DO NOT RESUSCITATE. DO NOT INTUBATE Time Spent Adv.Care Plannin minutes Adv. Care Plan Documenation: As above Regan Perez MD Jan 29, 2017 13:22
--- NOTE | 2017-01-29 13:24 | NUR ---
Social Work- Discharge Data: EMR reviewed. Pt to discharge today, discharge orders are active. Pt will d/c home with resumption of HH services through [facility] and Home O2 through [facility]. Confirmed with RT that O2 paperwork has been sent, [facility] will meet pt at home today. Confirmed with Kaley at [facility] of access and resumption of services, Kaley reports that [facility] will resume pt's normal schedule tomorrow. T/C to pt's father, Marc, regarding d/c time. RN, pt/family, and [facility] all updated and agreeable to plan. PCS form and paperwork complete and in envelope. Information faxed to pt's RAINA Downing at [facility]. No additional d/c needs. Assessment: Pt who is not capable of self-care at home, requires caregivers Plan: RN, pt/family, and [facility] all updated and agreeable to discharge plan. PCS form and paperwork complete and in envelope. Information faxed to pt's RAINA Downing at [facility]. No additional d/c needs. Demetra Quiroz MSW
== END 2017-01-29 14:20 | disposition home or self-care (01) ==
LOC: SED 09:52 → INTOOBSV 12:08 → PCC 12:08
PROVIDERS: ADMIT Hospitalist; ATTEND Hospitalist
DX: R00.1 Bradycardia, unspecified (principal); G93.40 Encephalopathy, unspecified; J96.22 Acute and chronic respiratory failure with hypercapnia; J96.21 Acute and chronic respiratory failure with hypoxia; L89.324 Pressure ulcer of left buttock, stage 4; G82.50 Quadriplegia, unspecified; L89.314 Pressure ulcer of right buttock, stage 4; E66.2 Morbid (severe) obesity with alveolar hypoventilation; G40.909 Epilepsy, unspecified, not intractable, without status epilepticus; R40.0 Somnolence; Z79.82 Long term (current) use of aspirin; Z79.899 Other long term (current) drug therapy

== ENCOUNTER 2017-02-01 10:03 | Inpatient (IN) | payer MEDICARE, MEDICAID ==
[~2017-02-01] VITALS: Ht 170.2 cm; Wt 111.3 kg
[2017-02-01] VITALS (13 sets, daily range): BP systolic 66–134; BP diastolic 38–63; PULSE 35–83; RESP 16–26; O2SAT 84–98
[~2017-02-01 10:03] MED LIST changes: -PHEN100C11 PO; +PHN100C PO
--- NOTE | 2017-02-01 10:09 | ED.REPORT ---
HPI-General Illness Date of Service Feb 01, 2017 ED Provider: Eleazar Martinez MD Patient is a 56 year old male with a history of incomplete C7 quadriplegia and seizures who presents to the ED via EMS due altered mental status. Per the patient's other spatial scientist, the patient was complaining of abdominal pain and then became unresponsive. Per the patient's caregiver, the patient was complaining of fatigue and abdominal pain yesterday but was more responsive. The patient also asked for antibiotics, which per the patient's caregiver means that he has a UTI. The patient was discharged 3 days ago after being hospitalized for bradycardia and acute respiratory failure with hypoxia and hypercarbia. Nursing Notes Stated Complaint: WEAKNESS Nursing Notes Reviewed: Yes Allergies: Coded Allergies: No Known Drug Allergies (Verified Allergy, Unknown, 10/16/16) ONLY ALLERGIC TO DETERGENT PERFUME; NO DRUG ALLERGIES PER PATEINT Uncoded Allergies: PERFUME IN DETERGENT (Adverse Reaction, Severe, RED RASH, 07/27/12) Scheduled Ascorbic Acid (Vitamin C) 500 Mg Capsule.er 500 MG PO DAILY Aspirin (Aspirin) 325 Mg Tablet 325 MG PO DAILY Baclofen (Baclofen) 10 Mg Tablet 10 MG PO TID Multivitamin (Multi Vitamin Daily) 1 Each Tablet 1 EACH PO DAILY Phenytoin Sodium ER (Dilantin) 100 Mg Capsule 200 MG PO MORNING Phenytoin Sodium ER (Dilantin) 100 Mg Capsule 300 MG PO QPM Scheduled PRN Acetaminophen (Acetaminophen) 325 Mg Capsule 650 MG PO Q4H PRN PRN For Pain Lorazepam (Lorazepam) 0.5 Mg Tablet 0.5-1 MG PO HS PRN PRN For Anxiety General Time Seen by MD: 10:03 Chief Complaint Altered mental status Hx Obtained From: Patient Arrived By: Ambulance Sudden in Onset?: Yes Onset Occurred: 1 - 4 hours ago Symptom Duration: Since onset Location: : Abdomen Quality: Painful Severity: Current: Moderate Recent Healthcare: Recent doctor visit, Recent hospitalization Past Medical History Past Medical History Incomplete C7 quadriplegia Mild sinusitis Seizure disorder Morbid obesity Recurrent bladder infections stage IV bilateral ischial decubitus ulcers Past Surgical History Multiple buttock decubitus ulcer debridement Baclofen pump Debridement of right ischial pressure sore with right gluteal myocutaneous flap closure. Smoking History Never Smoker Social History Alcohol Use: Denies alcohol use Drug Use: Denies drug use Other Social History: Good social support, Lives alone Ambulatory Status Wheelchair Review of Systems Unable to Obtain ROS Patient condition, Mental status Full Review of Systems Constitutional: Reports: Fatigue GI: Reports: Abdominal pain Skin: Denies Itching, Denies Rash Neurologic: Reports: Change LOC Complete sys rev & neg: except as marked. Physical Exam Vital Signs Vital Signs Date Time Temp Pulse Resp B/P Pulse Ox O2 Delivery O2 Flow Rate FiO2 02/01/17 14:10 36 17 80/47 95 BiPAP 02/01/17 13:55 16 98 80 02/01/17 13:15 41 66/38 97 BiPAP 02/01/17 12:41 16 98 100 02/01/17 12:32 83 20 132/63 97 BiPAP 02/01/17 12:30 76 16 95 BiPAP 80 02/01/17 11:24 43 17 95 BiPAP 02/01/17 11:15 26 95 70 02/01/17 10:15 45 17 134/60 Non-Rebreather Initial VS: Reviewed Alertness: Positive: Unresponsive (to sternal rub) on 15L of non re-breather Head / Eyes: Atraumatic, Normocephalic, PERRL, EOMI 3-4mm reactive RESPIRATORY: decreased breath sounds at the base coarse breath sounds bilaterally Heart Rate / Rhythm: Positive: Bradycardia Abdomen: Atraumatic, Soft, No distention suprapubic catheter in place no surrounding erythema cloudy urine output Upper Extremities Upper Extremity / MS: Atraumatic, Inspection NL Skin: Warm, Dry Mental Status: Positive: Unresponsive Interpretation & Diagnostics Lab Results Interpretation Result Diagram: 02/01/17 1020 02/01/17 1020 Test 02/01/17 10:20 02/01/17 10:30 02/01/17 10:41 02/01/17 13:19 White Blood Count 6.0th/mm3 (3.8-10.1) Red Blood Count 5.21mil/mm3 (4.40-5.80) Hemoglobin 14.1g/dL (13.8-17.2) Hematocrit 44.2% (41.0-50.0) Mean Corpuscular Volume 84.8fL (81-100) Mean Corpuscular Hemoglobin 27.1pg (27.0-35.0) Mean Corpuscular Hemoglobin Concent 31.9% (32.0-37.0) Red Cell Distribution Width 14.9% (12.3-15.4) Platelet Count 93bil/L (150-400) Neutrophils (%) (Auto) 81.2% (40-74) Lymphocytes (%) (Auto) 10.4% (14-46) Monocytes (%) (Auto) 6.5% (4-12) Eosinophils (%) (Auto) 0.5% (0-5) Basophils (%) (Auto) 0.2% (0-3) Sodium Level 129mEq/L (134-144) Potassium Level 4.9mEq/L (3.5-5.2) Chloride Level 89mEq/L (97-108) Carbon Dioxide Level 28mmol/L (18-29) Blood Urea Nitrogen 18mg/dL (6-24) Creatinine < 0.30mg/dL (0.76-1.27) Estimat Glomerular Filtration Rate 330mL/min (>59) Glucose Level 85mg/dL (60-99) Lactic Acid Level 0.5mmol/L (0.4-2.0) Calcium Level 8.4mg/dL (8.5-10.1) Magnesium Level 1.8mg/dL (1.6-2.6) Total Bilirubin 0.5mg/dL (0.0-1.2) Aspartate Amino Transf (AST/SGOT) 14U/L (0-50) Alanine Aminotransferase (ALT/SGPT) 11U/L (0-44) Alkaline Phosphatase 85U/L (25-150) Troponin T 0.010ug/L (0.0-0.011) Total Protein 7.8g/dL (6.4-8.4) Albumin 3.8g/dL (3.4-5.0) Pro-B-Type Natriuretic Peptide 492.4pg/mL (0-210) Urine Color Yellow (YELLOW) Urine Appearance Turbid (CLEAR,HAZY) Urine pH 7.0 (5.0-8.0) Urine Specific [place] 1.025 (1.003-1.035) Urine Protein 100mg/dL (NEG,TRACE) Urine Glucose (UA) Negativemg/dL (NEGATIVE) Urine Ketones Tracemg/dL (NEGATIVE) Urine Occult Blood Large (NEGATIVE) Urine Nitrite Positive (NEGATIVE) Urine Bilirubin Negative (NEGATIVE) Urine Urobilinogen 2.0mg/dL (NORMAL) Urine Leukocyte Esterase Moderate (NEGATIVE) Urine RBC >50/hpf (0-2) Urine WBC 11-50/hpf (0-5) Urine Epithelial Cells Occasional/hpf (NONE-MOD) Urine Crystals Triple phosphate Urine Bacteria Moderate/hpf (NONE-FEW) Urine Hyaline Casts None/lpf (NONE) Urine Granular Casts None seen (NONE SEEN) Urine Waxy Casts None seen (NONE SEEN) Urine Red Blood Cell Casts None seen (NONE SEEN) Urine White Blood Cell Casts None seen (NONE SEEN) Urine Mucus None seen (None Seen) Urine Trichomonas None seen (NONE SEEN) Urine Yeast None (NONE SEEN) Urinalysis Comment Urine Culture Reflexed Indicated D-Dimer 0.69mg/L FEU (<0.50) ECG Interpretation ECG Interpretation: sinus bradycardia, rate 47 RBBB OK 213 T wave inversion in V1 no other ST, T changes Time: 10:18 Interpreted by: ED physician X-Ray Chest Interpretation Chest Xray Interpretation: IMPRESSION: 1. Prominent cardiomegaly with associated pulmonary vascular congestion is suggestive of developing pulmonary edema. 2. Moderate-sized bilateral pleural effusions with associated atelectasis is new. Superimposed pneumonia is difficult to exclude. Dictated by: Erickson Kang M.D. on 02/01/2017 at 9:45 Approved by: Erickson Kang M.D. on 02/01/2017 at 9:47 View: Portable, 1 view Interpretation / Wet Read by: Interpret - Radiologist CT Head Interpretation IMPRESSION: 1. No acute intracranial abnormalities. Nonacute left occipital lobe infarct. 2. Multifocal sinus mucosal thickening may reflect sinusitis, increased in extent since September 2016. Dictated by: Declan Najera M.D. on 02/01/2017 at 12:27 Approved by: Declan Najera M.D. on 02/01/2017 at 12:32 Interpretation / Wet Read by: Interpret - Radiologist CT Abd / Pelvis Interpretation IMPRESSION: 1. Multiple small gallstones, along with circumferential gallbladder wall thickening and nearby small free fluid, suspicious for acute cholecystitis. 2. Background findings consistent with long-standing seronegative spondyloarthropathy such as ankylosing spondylitis, including bilateral sacroiliac joint fusion and multilevel syndesmophytes. T11-T12 vertebral disc widening is again noted, consistent with sequelae of remote 3-column vertebral fracture. 3. Moderate bibasilar dependent pleural effusions are of uncertain etiology, causing lower lobe compressive atelectasis. Dictated by: Declan Najera M.D. on 02/01/2017 at 12:36 Approved by: Declan Najera M.D. on 02/01/2017 at 12:50 Interpretation / Wet Read by: Interpret - Radiologist Re-Eval/Medical Decision Med Decision/Clinical Course 56-year-old male history of quadriplegia, obesity hypoventilation syndrome chronic hypercapnia presenting with altered mental status since earlier today. On arrival patient was acutely altered. His venous blood count showed a pH of 6.9 and PCO2 of 160. He was placed on BiPAP with improvement and PCO2 to the low 100s. He still remained altered. CT of the brain no acute pathology. He was complaining of abdominal pain before altered mental status therefore CT abdomen was performed with no acute pathology. Does have an indwelling chronic Rosario catheter suggestive of UTI. He was treated for UTI. I discussed extensively with the family and the decision was made that he continues to be DNR/DNI, to continue BiPAP but not "heroic measures.". When BiPAP was taken off for CT scan patient did become bradycardic into the low 30s with oxygen in the 20s. He was placed back on BiPAP and given atropine with improvement in heart rate and respiratory status. Her pressures continued to remain low with maps in the 40s to 60s. 60s at time of transfer. Was given IV fluids. Discussed with cardiology as well as ICU doctor. Transferred to ICU. Time of Eval: 12:16 Re-Evaluation/Progress Note: While trying to go to CT, he started D sating and heart rate dropped. Time of Eval: 13:57 Re-Evaluation/Progress Note: Discussed patient's course of care with the patient's father. Family does not want any heroic measures but would like him to be kept on the breathing machine. Consultation #1: Referral / Consult Name: Jaime Nieves MD Consulted With: Cardiology Call Returned at: 12:27 Note: Consult with Dr. Vogel, who has no further recommendations. Keep patient on bi-pap and up to the floor Consultation #2: Referral / Consult Name: Demond Abbott MD Consulted With: Hospitalist Call Returned at: 13:15 Emergency Medcl Emt: Agrees with eval, Agrees with plan, Accepts admit Counseled Regarding: Diagnosis, Lab results, Need for admission Discharge & Departure Primary Impression: Hypercarbia Additional Impressions: UTI (urinary tract infection) Urinary tract infection type: site unspecified Hematuria presence: without hematuria Qualified Code: N39.0 - Urinary tract infection, site not specified Altered mental status Altered mental status type: unspecified Qualified Code: R41.82 - Altered mental status, unspecified Respiratory acidosis Severe sinus bradycardia Disposition: ADMITTED TO HOSPITAL Discharge Condition All VS Reviewed: Yes Condition: Stable Referrals: Saul Kendrick MD (PCP) Crit Care Except Billable Proc Time Spent: 75-104 minutes (83) Services Performed: Patient management by me, Time spent at bedside, Reviewing test results, Reviewing imaging, Discussing patient care, Documentation in record, Time with fam/surrogate Scribe Attestation Portions of this note were transcribed by Natalie Agarwal. I, Dr. Martinez personally performed the history, physical exam and medical decision-making; I reviewed and confirmed the accuracy of the information in the transcribed note. Signed by: Jackelyn Flores, 02/01/17 copies to: Saul Kendrick MD, Ben M MD Feb 01, 2017 10:09 Carri Agarwal Feb 01, 2017 10:13
[2017-02-01 10:24] LABS: Mean Corpuscular Volume 84.8 fL (81-100)
[2017-02-01 10:30] LABS: BASOPHILS % (AUTO) 0.2 % (0-3); EOSINOPHILS % (AUTO) 0.5 % (0-5); MONOCYTES % (AUTO) 6.5 % (4-12); Mean Corpuscular Hemoglobin 27.1 pg (27.0-35.0); NEUTROPHILS % (AUTO) 81.2 % (40-74); Platelet Count 93 bil/L (150-400)
--- NOTE | 2017-02-01 10:49 | DRSVH ---
PROCEDURE: X-RAY CHEST ONE VIEW, PORTABLE ([id number]) INDICATIONS: Decreased oxygen saturation levels. TECHNIQUE: One view of the chest was acquired. COMPARISON: [facility], CR, XR CHEST 1VW (PORTABLE), 01/28/2017, 9:44. FINDINGS: Surgical changes and devices: Postoperative changes of the lower cervical spine are not adequately ev aluated. Lungs and pleura: Diffuse increased density is evident within the bilateral lung bases with obscurati on of the diaphragms. The pulmonary vasculature is increased. There is no pneumothorax. Mediastinum: Mediastinal contours appear normal. The heart is markedly enlarged. Bones and chest wall: No suspicious bony lesions. Bony deformity at the thoracolumbar junction prob ably is related to either previous trauma or surgery and is not adequately characterized on this stud y. Overlying soft tissues appear unremarkable. IMPRESSION: 1. Prominent cardiomegaly with associated pulmonary vascular congestion is suggestive of developing pulmonary edema. 2. Moderate-sized bilateral pleural effusions with associated atelectasis is new. Superimposed pneu monia is difficult to exclude. Dictated by: Erickson Kang M.D. on 02/01/2017 at 9:45 Approved by: Erickson Kang M.D. on 02/01/2017 at 9:47
[2017-02-01] MEDS ORDERED: Ondansetron 2 mg/mL 2 mL Inj IVPUSH PRN ×3 (10:50→13:45)
--- NOTE | 2017-02-01 10:50 | NUR ---
#7.0 nasal placed in left nare RN notified.
[2017-02-01 11:05] LABS: Magnesium 1.8 mg/dL (1.6-2.6)
[2017-02-01] MEDS ORDERED: Furosemide 10 mg/mL 4 mL Inj IVPUSH ONE (11:05)
--- NOTE | 2017-02-01 11:07 | ABG ---
DateTimeAnalyzed 11:00:00 -_ pH ____6.962 - 7.320 7.420 pCO2 165 -mmHg 41.0 51.0 pO2 ___85.3__ -mmHg 24.0 40.0 HCO3- ___35.5__ -mmol/L ABE ___-4.2__ -mmol/L tHb ___14.7__ -g/dL 12.0 18.0 O2Hb ___88.2__ -% COHb ____2.4__ -% 0.0 1.5 MetHb ____1.0__ -% 0.4 1.5 sO2 ___91.3__ -% FIO2 __100.0__ -% Drawn By RN - Date/Time Notified____ 11:07:00 -_ Spontaneous_RR ___14.0__ -b/min Oxygen Device 1 NON RE-SPENCER - Notified By blf - Notified Whom ___Dr.Brock-Solomon - B 756 -mmHg tO2 ___18.3__ -Vol% Regan test N/A -
[2017-02-01] MEDS ORDERED: Piperacillin-Tazo 3.375 Gm Inj 3.375 GM in Dextrose 5% Minibag Plus 50 ML IV ONE (11:25)
[2017-02-01 11:35] LABS: APPEARANCE,URINE TURBID (CLEAR,HAZY); COLOR,URINE YELLOW (YELLOW)
[2017-02-01 11:36] LABS: OCCULT BLOOD,URINE LARGE (NEGATIVE)
[2017-02-01] MEDS ORDERED: 0.9% Sodium Chloride 1,000 ML IV ONE (11:40)
[2017-02-01] MEDS ORDERED: Albuterol-Ipratropium 3 mL Inhalation Solution ONE (12:32)
--- NOTE | 2017-02-01 12:34 | DRSVH ---
PROCEDURE: CT BRAIN WITHOUT CONTRAST ([id number]) INDICATIONS: 56-year-old male with altered mental status. TECHNIQUE: Noncontrast 4.5 mm thick angled axial sections acquired from the foramen magnum to the vertex, with c oronal reformats. COMPARISON: Located Within [facility], CT, CT BRAIN WO CON, 10/16/2016, 16:47. FINDINGS: Image quality: Several images are degraded by patient motion. CSF spaces: Basal cisterns are patent. No extra-axial fluid collections. Ventricles are normal in size and shape. Brain: No midline shift. No intracranial masses or hemorrhage. Nonacute left occipital lobe infarct is again noted, contiguous with the posterior horn of the left lateral ventricle. Skull and face: Calvarium appears intact. Nonacute left nasal fracture is unchanged. Sinuses: There is new mild left maxillary sinus mucosal thickening. There is persistent left sphenoid sinus mucosal thickening, as well as patchy bilateral ethmoid sinus mucosal thickening. Mastoid air cells appear clear. IMPRESSION: 1. No acute intracranial abnormalities. Nonacute left occipital lobe infarct. 2. Multifocal sinus mucosal thickening may reflect sinusitis, increased in extent since September 2016. Dictated by: Declan Najera M.D. on 02/01/2017 at 12:27 Approved by: Declan Najera M.D. on 02/01/2017 at 12:32
--- NOTE | 2017-02-01 12:52 | DRSVH ---
PROCEDURE: CT ABDOMEN AND PELVIS WITH CONTRAST ([id number]) INDICATIONS: 56 year-old male with abdominal pain. TECHNIQUE: After the administration of intravenous contrast, 5 mm thick sections acquired from the diaphragm to the symphysis. 5 mm coronal and sagittal reformats were acquired. For radiation dose reduction, the following was used: automated exposure control, adjustment of mA and/or kV according to patient alejandro fortune. COMPARISON: [facility], CT, CT ABD PELVIS W CON, 08/08/2015, 15:17. FINDINGS: Image quality: Excellent. ABDOMEN: Lung bases: Moderate bibasilar dependent pleural effusions are present, causing bilateral lower lobe compressive atelectasis. There is borderline cardiomegaly. No hiatal hernia. Solid organs: Liver and spleen are normal in size and enhancement. Gallbladder contains multiple no ncalcified gallstones, with circumferential wall thickening up to 12 mm. Biliary system is non dilat ed. Pancreas enhances normally. No adrenal nodules. Kidneys demonstrate normal size and enhancemen t, without hydronephrosis. Peritoneum and bowel: Bowel loops demonstrate normal wall thickness and caliber. There is small clive hepatic free fluid. No free air. Nodes and vessels: No retroperitoneal or mesenteric adenopathy by size criteria. Aorta and inferior vena cava are normal in size. Miscellaneous: No ventral hernias. PELVIS: Genitourinary: The bladder is decompressed by a suprapubic catheter as before. Prostate gland is smal l in overall size. Miscellaneous: No inguinal hernias or adenopathy. Bones: No suspicious bony lesions. No vertebral body compression fractures. There is T11-T12 disc w idening as before, with bridging osteophytes. Multilevel lumbar spine and lower thoracic spine syndes mophytes are also present, along with bilateral sacroiliac joint fusion. There is severe bilateral hi p joint degeneration. IMPRESSION: 1. Multiple small gallstones, along with circumferential gallbladder wall thickening and nearby small free fluid, suspicious for acute cholecystitis. 2. Background findings consistent with long-standing seronegative spondyloarthropathy such as ankylos ing spondylitis, including bilateral sacroiliac joint fusion and multilevel syndesmophytes. T11-T12 v ertebral disc widening is again noted, consistent with sequelae of remote 3-column vertebral fracture . 3. Moderate bibasilar dependent pleural effusions are of uncertain etiology, causing lower lobe compr essive atelectasis. Dictated by: Declan Najera M.D. on 02/01/2017 at 12:36 Approved by: Declan Najera M.D. on 02/01/2017 at 12:50
[2017-02-01] MEDS ORDERED: Atropine 1 mg/10 mL (Code) Syringe IVPUSH PRN (13:10)
--- NOTE | 2017-02-01 13:15 | ABG ---
DateTimeAnalyzed 13:07:00 -_ pH ____7.093 - 7.320 7.420 pCO2 109 -mmHg 41.0 51.0 pO2 ___73.0__ -mmHg 24.0 40.0 HCO3- ___31.8__ -mmol/L ABE ___-1.8__ -mmol/L tHb ___13.5__ -g/dL 12.0 18.0 O2Hb ___89.0__ -% COHb ____2.5__ -% 0.0 1.5 MetHb ____0.9__ -% 0.4 1.5 sO2 ___92.1__ -% FIO2 ___80.0__ -% PEEP ____8.0__ -cmH2O Set_RR ___16.0__ -b/min Vt __400.0__ -L Drawn By RN - Oxygen Device 2 AVAP - Date/Time Notified____ 13:14:00 -_ Spontaneous_RR ___19.0__ -b/min Oxygen Device 1 ____BIPAP - Notified By blf - Notified Whom ___Dr. Jorgito-Solomon -___ B 755 -mmHg tO2 ___17.0__ -Vol% Regan test N/A -
[2017-02-01] MEDS ORDERED: Alum-Mag Hydrox-Simeth 30 mL Suspension PO PRN ×2 (13:35→13:45)
[2017-02-01] MEDS ORDERED: Polyethylene Glycol (PEG) 17 Gm Powder PO PRN (13:45)
[2017-02-01] MEDS ORDERED: ACET325C PO (13:52)
[2017-02-01] MEDS: 0.9% Sodium Chloride 1,000 ML IV SCH (14:16)
--- NOTE | 2017-02-01 17:33 | PCM.CHPMED ---
Subjective Date of Service: Feb 01, 2017 Provider requesting consult: Demond Abbott MD Primary Physician: Admitting Physician: Demond Abbott MD Primary Care Physician: Saul Kendrick MD Attending Physician: Demond Abbott MD Chief Complaint: Chief Complaint: SOB History of Present Illness: Pulmonology Consult Note Requesting Physician: Dr. Abbott Reason for consult: Acute respiratory failure Lizandro Sahu is a year-old man with a 27 year history of C5-C6 quadriplegia, recent cervical fracture of a higher level of the cervical spine, and presumed obesity hypoventilation syndrome who we are asked to consult on regarding his ongoing hypercarbia and hypoxia. Patient has been having significant decline over the last 6 months with 4 hospitalizations during this time period. Patient was recently discharged 3 days ago after being hospitalized for bradycardia and acute respiratory failure with hypoxia and hypercarbia. Patient began to complain of abdominal pain and became progressively altered and unresponsive per father. Patient was brought in by EMS. Patient is bedridden at baseline secondary to his quadriplegia and recent cervical fracture. He has a trilogy machine at home but is noncompliant. At last hospitalization long discussions regarding end-of-life issues were had dictated at that time that he was DO NOT RESUSCITATE and DO NOT INTUBATE. Mother and father at bedside and reiterate his wishes and states he no longer findings much enjoyment in life. He previously enjoyed watching baseball games or other sporting events but no longer has interest. They do not want to proceed with any heroic measures but would like to continue some support including BiPAP. Review of Systems: Unable to obtain due to patient's current status. PMH Past Medical History Incomplete C7 quadriplegia Mild sinusitis Seizure disorder Morbid obesity Recurrent bladder infections stage IV bilateral ischial decubitus ulcers Surgical History Multiple buttock decubitus ulcer debridement Baclofen pump Debridement of right ischial pressure sore with right gluteal myocutaneous flap closure. Home Medications Ascorbic Acid (Vitamin C) 500 Mg Capsule.er 500 MG PO DAILY Aspirin (Aspirin) 325 Mg Tablet 325 MG PO DAILY Baclofen (Baclofen) 10 Mg Tablet 10 MG PO TID Multivitamin (Multi Vitamin Daily) 1 Each Tablet 1 EACH PO DAILY Phenytoin Sodium ER (Dilantin) 100 Mg Capsule 200 MG PO MORNING Phenytoin Sodium ER (Dilantin) 100 Mg Capsule 300 MG PO QPM Scheduled PRN Acetaminophen (Acetaminophen) 325 Mg Capsule 650 MG PO Q4H PRN PRN For Pain Lorazepam (Lorazepam) 0.5 Mg Tablet 0.5-1 MG PO HS PRN PRN For Anxiety Allergies: Coded Allergies: No Known Drug Allergies (Verified Allergy, Unknown, 10/16/16) ONLY ALLERGIC TO DETERGENT PERFUME; NO DRUG ALLERGIES PER PATEINT Uncoded Allergies: PERFUME IN DETERGENT (Adverse Reaction, Severe, RED RASH, 07/27/12) Social History Hx Alcohol Use: NoHx Substance Use: NoHx Tobacco Use: No (patient used to chew Vysr chewing tobacco) Smoking Status: Never Smoker Living Arrangement: with Family (father's patient's caregiver) Exam Vital Signs Vital Sign - Last Date Time Temp Pulse Resp B/P Pulse Ox O2 Delivery O2 Flow Rate FiO2 02/01/17 17:11 36 20 95/57 85 100 02/01/17 15:00 CPAP/BIPAP 02/01/17 15:00 31.7 General: No Acute Distress, Other (obtunded) Head: Normal Eyes: PERRLA, EOMI, Scleral Anicteric Chest & Lungs: Other (significantly decreased breath sounds on the right side) Cardiovascular: Other (bradycardic but regular rhythm) Abdomen: Non-tender, Soft Skin: Pressure Ulcer Lab and Diagnostics Result Diagram: 02/01/17 1020 02/01/17 1020 Assessment & Plan Assessment Lizandro Sahu is a year-old man with a 27 year history of C5-C6 quadriplegia, recent cervical fracture of a higher level of the cervical spine, and presumed obesity hypoventilation syndrome who has had a progressive decline over the last 6 months who we are asked to consult on regarding his ongoing hypercarbia and current BiPAP settings. Acute on chronic hypercarbic respiratory failure ABG on arrival showed a respiratory acidosis with PCO2 of 165. Patient is on Trilogy at baseline but is noncompliant. We are consulted to see if there are any changes that can be made to his current BiPAP settings that would provide any improvement in his respiratory status. The nature of his acute hypercarbic respiratory failure is likely secondary to significant atelectasis of the bilateral lung cortés seen on chest x-ray along with likely mucous plugging as right lung sounds are significantly decreased. It was recommended the patient be switched from BiPAP to APAP. This may provide minimal improvement. The only way to properly ventilate the patient would be to intubate him and this is not congruent with his current CODE STATUS. Patient's mother and father at bedside and confirms the patient's wishes and understanding that the patient likely will pass during this hospitalization. Altered mental status Secondary to hypercarbia. Recommendations as above. C5-C6 quadriplegia Likely contributing to patient's worsening atelectasis as patient could not produce an effective cough. This has been a chronic issue for the patient for the last 27 years. Thank you for involving us in this patient's care. Problems: Pain Evaluation: Adequate Pain Control Resuscitation Status: DNR/DNI:Do Not Resuscitate/Intubate PATSY JONES DO Feb 01, 2017 17:33
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
--- NOTE | 2017-02-01 18:13 | PCM.ADCARE ---
Advance Care Planning Note Purpose of Encounter: Clarify goals of care Parties in Attendance: Mother and father. Patient unable to participate. Decisional Capacity: The patient is not decisional due to acute encephalopathy, caused by acute on chronic respiratory failure. Subjective: Patient has experienced increasing medical complications and has expressed distress and exhaustion with life-sustaining medical interventions. Objective: Patient is currently admitted with acute on chronic respiratory failure with hypercarbia. Largely related to inability to comply with home ventilatory support. He is currently hypotensive and hypoxic despite maximum efforts with bilevel positive airway pressure ventilation. Goals of Care Determinations: The patient has clearly expressed a documented wish for DO NOT RESUSCITATE/DO NOT INTUBATE. The remaining question regards aggressiveness of supportive efforts. The parents confirmed that the patient has recently declined medical intervention such as pacemaker and hospitalization for intercurrent illnesses. He has expressed a desire for comfort measures and minimal medical interventions. Parents however report that recent medical complications have reverse with supportive efforts and that at baseline he is not in pain or distress. They endorsed limited supportive efforts at this time but agrees that if is imminent they would elect comfort measure primarily. Plan: Limited interventions will include BPAP, maintenance IV hydration, antibiotics if needed. We will not place central line or perform invasive procedures such as ABG. CODE STATUS: DO NOT RESUSCITATE/DO NOT INTUBATE Time Spent Adv.Care Plannin minutes Adv. Care Plan Documenation: CODE STATUS documented Demond Abbott MD Feb 01, 2017 18:13
[2017-02-01] MEDS: Heparin 5,000 Unit/mL Inj SUBQ SCH (18:45)
--- NOTE | 2017-02-01 18:57 | NUR ---
goals of care/temp/hemodynamics Pt recently discharged with a plan of home hospice. Plan of care discussed with Dr Abbott and Parents. Plan to keep pt DNR DNI, try bipap to see if it helps with the understanding that pt's current condition is not compatible with life. Plan to not escalate care. Pt HR remains 30-40's, SBP 70-90's, SPO2 mid 80's on 100% Bipap. Pt cold clammy and mottled, unable to obtain accurate temperature. Temporal thermometer reads 31.7c. Unable to turn pt to get rectal temp or assess skin due to hemodynamic instability.
[2017-02-02] VITALS (11 sets, daily range): BP systolic 95–123; BP diastolic 48–61; PULSE 43–53; RESP 16–21; O2SAT 92–99
[2017-02-02] MEDS: Heparin 5,000 Unit/mL Inj SUBQ SCH ×3 (01:21→16:04)
[2017-02-02] MEDS: 0.9% Sodium Chloride 1,000 ML IV SCH ×4 (01:21→16:23)
[2017-02-02 04:03] LABS: BASOPHILS % (AUTO) 0 % (0-3); EOSINOPHILS % (AUTO) 0.3 % (0-5); MONOCYTES % (AUTO) 9.8 % (4-12); Mean Corpuscular Hemoglobin 27.4 pg (27.0-35.0); Mean Corpuscular Volume 84.8 fL (81-100); NEUTROPHILS % (AUTO) 84.1 % (40-74); Platelet Count 87 bil/L (150-400)
--- NOTE | 2017-02-02 06:39 | NUR ---
temp: Pt temp was 32.6 bear hugger was applied at 0030 temp was 36.5 pt was starting to be able to be aroused not following commands. At 0200 pt wakes nods to questions and tries to lift arms. 0400 Pt fully awake talking lifts arms up. ask for water mouth swabbed.
[2017-02-02] MEDS ORDERED: Dextrose 10% 250 ML IV ONE (07:20)
--- NOTE | 2017-02-02 09:15 | NUR ---
Palliative Care Palliative Car received order from Dr Venancio Abbott 02/02/17 to assist with goals of care. Patient admitted 02/01/17. Palliative Care has seen patient during previous admissions. Marc (dad) [phone], Jessica (caregiver) [phone] Palliative Care to follow. Shreya Valadez
--- NOTE | 2017-02-02 09:16 | NUR ---
Palliative care note D/A: Palliative care referral kindly received today from Dr. Abbott. EMR reflects that pt might have been dc'ed with plans for hospice. Review of notes reveal that pt was dc'ed home with home health and advised to discuss with hospice once home. This worker has left message with [facility] to inquire if there was outreach from family. Note that palliative care has seen pt/family in the past and discussed goals and at that time, pt/family have not been interested in comfort care approach. Pt to be seen by Dr. Cazares today. P: Palliative care to follow. Sary SILVERMAN, CCM
[2017-02-02] MEDS ORDERED: CIPR-231 PO (09:56)
--- NOTE | 2017-02-02 11:20 | NUR ---
Inpatient Wound Nurse Patient seen for multiple pressure injuries; [facility]. Mid thoracic healing Stage 3 presents as small dent, approximately 1 cm L x 2 cm W, surrounded by erythema and edema. No drainage, no opening noted. R ischial wound presents as healing wound, approximately 1 cm L x 1 cm W x 1 cm D. L ischial wound presents as healing wound, 5.5 cm l x 3 cm W x 0.5 cm D, beefy red tissue, periwound erythemic; removed Aquacel saturated 100% and yellow. Wounds were cleansed and blotted dry. Thoracic wound was covered with 4x4 bordered Mepilex with silicone facing; this can be changed PRN. Ischial wounds were filled with Aquacel Extra Ag and covered with ABD. Heels pink and warm, no bogginess. Nursing staff are following pressure injury prevention protocol and patient is on Ehob mattress. CWQN will see patient daily.
[2017-02-02] MEDS ORDERED: Benzocaine-Menthol Lozenge 2/Pkg PO PRN (13:00)
[2017-02-02] MEDS ORDERED: LORazepam 0.5 mg Tablet PO PRN (13:00)
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
[2017-02-02] MEDS: CeFAZolin Inj 2 GM in IV Premix 1 EACH IV SCH (16:04)
--- NOTE | 2017-02-02 16:50 | NUR ---
Respiratory/cardiac//pain/diet Respiratory: Continues on BiPAP with 100% fi02 and 8 EPAP. Transitioned to HF NC with 30L 02 and 100% fi02 with oral intake and conversation. Sp02 >92%. Decreased LOC and drowsiness noted with extended breaks off BiPAP, improved mentation noted once back on BiPAP. Cardiac: SB with 1st degee AV block per monitor technician. HR upper 40s to 50s. Denies chest discomfort. Pressure stable. NS infusing as ordered. Pain: Generalized weakness and headache reported this shift. PRN tylenol administered with improvement. Continue to monitor. /GI: Complaints of nausea this afternoon, resolved with PRN zofran. Denies abdominal pain at this time. Suprapubic catheter draining foul cloudy roldan urine with sediment. Diet: Hypoglycemic this AM, bedside blood sugar 59. d10 infused and diet ordered. Pt tolerating bites of applesauce and sips. Blood glucose stable for remainder of shift. Will continue to monitor.
[2017-02-02] MEDS ORDERED: Phenytoin 100 mg ER Capsule PO SCH (21:00)
[2017-02-03] MEDS: CeFAZolin Inj 2 GM in IV Premix 1 EACH IV SCH ×2 (00:16→07:46)
[2017-02-03] MEDS: 0.9% Sodium Chloride 1,000 ML IV SCH ×3 (00:16→07:46)
[2017-02-03] MEDS: Heparin 5,000 Unit/mL Inj SUBQ SCH ×3 (00:30→10:51)
[2017-02-03 04:00] VITALS: BP 120/59; PULSE 57; RESP 20; O2SAT 95
[2017-02-03] MEDS: oxyCODONE-Acetamin 5-325 mg Tablet PO PRN ×2 (05:15→10:53)
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
--- NOTE | 2017-02-03 07:31 | NUR ---
Cardiac/Respiratory Mentation: Pt mostly drowsy through the night, woke up this am, c/o generalized body pain, given percocet prn. CV: SB with 1st avb, BP stable, around 0600 pt c/o left chest pain, Dr. Mehta informed of CP with orders, given nitro 0.4mg SL x 2, 12 lead ekg done and troponin drawn. Pain resolved after 2nd nitro. Resp: mostly on AVAPs (bipap 100%), sp02 > 93%, until this am pt took bipap mask off, switched to highflow 02 @30-40L/100%, still taking 02 off, switched briefly to NRb 100%, pt became more dyspneic, agreed to be back on bipap on previous settings. GI: NPo due to somnolence, this am pt more awake and asking for ice h2o, tolerating intake. Lab: held dilantin po last night due to somnolence and heparin subq also held due to low platelets. Dr. Mehta notified of these meds being held. Skin: on overlay waffle pad and q2h turns + CLRT.
[2017-02-03 07:47] VITALS: BP 111/57; PULSE 60; RESP 18; O2SAT 94
[2017-02-03 08:07] VITALS: BP 108/55; RESP 20; O2SAT 94
[2017-02-03] MEDS: Phenytoin 100 mg ER Capsule PO SCH ×2 (08:30→10:54)
--- NOTE | 2017-02-03 09:23 | NUR ---
Morning PO medications held due to drowsiness. Per assistant shift supervisor RN, Heparin being held due to platelet count per nightshift hospitalist.
[2017-02-03 11:21] VITALS: BP 105/56; RESP 20; O2SAT 94
[2017-02-03 12:00] VITALS: BP 91/50; PULSE 48; PULSE 52; RESP 20; O2SAT 94
--- NOTE | 2017-02-03 13:16 | NUR ---
Inpatient Wound Nurse Patient seen for healing stage 4 pressure injuries of bilateral ischial tuberosities. Bilateral wounds unchanged from yesterday. R ischial periwound pink, warm, and dry; removed Aquacel 100% saturated and yellow. L ischial wound with beefy red tissue, periwound erythemic; dressing applied yesterday was absent. Ischial wounds were cleansed and blotted dry, then filled with Aquacel Extra Ag and covered with ABD. ABDs were tucked into groin on either side of scrotum which is edematous. ABDs fit snugly and should remain in place. Heels are floated, now pink and warm, no bogginess. Nursing staff are following pressure injury prevention protocol. CWON will see patient daily.
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
[2017-02-03] MEDS ORDERED: Haloperidol 5 mg/mL Inj IVPUSH PRN (14:20)
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
--- NOTE | 2017-02-03 15:45 | NUR ---
Palliative support provided to family. Bipap removed, placed on comfort measures this afternoon. Had remained drowsy and lethargic, unable to hold attention for any length of time. Indicated that he was comfortable. Appeared in no distress. Ativan and Morphine given for comfort with good effect. Family no longer at bedside. No respirations, no pulse, no cardiac rhythm at 1517. Family notified by Dr. Irwin. [facility] notified. Donor referral service notified, awaiting coordinator response. Noted MRSA positive urine cultures resulted today.
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
== END 2017-02-03 15:17 | DRG 189 ==
LOC: SED 10:03 → CCU 14:33 → PCC 02-03 12:23
PROVIDERS: ADMIT Internal Medicine; ATTEND Internal Medicine
PROC: 5A09458 Assistance with Respiratory Ventilation, 24-96 Consecutive Hours, Intermittent Positive Airway Pressure (ICD-10-PCS; principal; 2017-02-01)
PROC: 4A033R1 Measurement of Arterial Saturation, Peripheral, Percutaneous Approach (ICD-10-PCS; 2017-02-01)
DX: J96.22 Acute and chronic respiratory failure with hypercapnia (principal); G93.40 Encephalopathy, unspecified; I50.31 Acute diastolic (congestive) heart failure; L89.103 Pressure ulcer of unspecified part of back, stage 3; R40.2112 Coma scale, eyes open, never, at arrival to emergency department; R40.2212 Coma scale, best verbal response, none, at arrival to emergency department; G82.54 Quadriplegia, C5-C7 incomplete; N30.01 Acute cystitis with hematuria; E87.2 Acidosis; E87.1 Hypo-osmolality and hyponatremia; T83.518A Infection and inflammatory reaction due to other urinary catheter, initial encounter; E66.2 Morbid (severe) obesity with alveolar hypoventilation; R40.2332 Coma scale, best motor response, abnormal flexion, at arrival to emergency department; Z79.82 Long term (current) use of aspirin; Z99.3 Dependence on wheelchair; R41.82 Altered mental status, unspecified; Z66 Do not resuscitate; Z51.5 Encounter for palliative care; G40.909 Epilepsy, unspecified, not intractable, without status epilepticus; Z68.38 Body mass index [BMI] 38.0-38.9, adult; B95.62 Methicillin resistant Staphylococcus aureus infection as the cause of diseases classified elsewhere; Z16.24 Resistance to multiple antibiotics